=== PATIENT | female | born 1980 | race African-American/Black ===

== ENCOUNTER 2019-09-27 08:23 | Emergency (ER) | payer OTHER ==
[~2019-09-27] VITALS: Ht 167.6 cm; Wt 109.0 kg
--- NOTE | 2019-09-27 09:46 | RAD ---
AP chest. HISTORY: Chest pain AP view was taken of the chest. Lungs are clear. Heart is normal in size. There is no pleural effusion. IMPRESSION: 1. No acute chest disease. Electronically signed by: Les Hidalgo MD (09/27/2019 9:43 AM) [id number]
--- NOTE | 2019-09-27 11:12 | EKG ---
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
[2019-09-27 11:13] LABS: BASO # 0.1 x10^3/uL (0.0-0.2); BASO % 1 % (0-3); EOS # 0.5 x10^3/uL (0.0-0.7); EOS % 9 % (0-3); HEMATOCRIT 37.3 % (36.0-47.0); HEMOGLOBIN 12.3 g/dL (12.0-15.5); LYMPH % 34 % (24-48); MEAN CORPUSCULAR HEMOGLOBIN 28 pg (25-35); MEAN CORPUSCULAR HGB CONC 33 g/dL (31-37); MEAN CORPUSCULAR VOLUME 84 fL (79-100); MONO # 0.5 x10^3/uL (0.0-1.1); MONO % 9 % (0-9); NEUT # 2.8 x10^3/uL (1.8-7.7); NEUT % 48 % (31-73); PLATELET COUNT 154 x10^3/uL (140-400); RED BLOOD COUNT 4.42 x10^6/uL (3.50-5.40); RED CELL DISTRIBUTION WIDTH 14.1 % (11.5-14.5)
[2019-09-27 11:29] LABS: CALCIUM 7.9 mg/dL (8.5-10.1); GFR 75.5
[2019-09-27] MEDS ORDERED: KETOROLAC 30 MG/ML VIAL. IVP ONE (11:30)
[2019-09-27 11:35] LABS: ALBUMIN 2.4 g/dL (3.4-5.0); ALBUMIN/GLOBULIN RATIO 0.4 (1.0-1.7); TOTAL BILIRUBIN 0.1 mg/dL (0.2-1.0); TOTAL PROTEIN 7.8 g/dL (6.4-8.2)
[2019-09-27] MEDS ORDERED: IOHEXOL 350 MG/ML 100 ML VIAL. IV ONE (12:00)
[2019-09-27] MEDS ORDERED: CONTRAST GIVEN. MC PRN (12:00)
[2019-09-27 12:30] VITALS: BP 149/102
--- NOTE | 2019-09-27 12:40 | PHYS DOC ---
Past Medical History Past Medical History: Hypertension, Other Additional Past Medical Histor: AUTOIMMUNE HEPATITIS Past Surgical History: Smoking Status: Never Smoker Alcohol Use: None General Adult EDM: Chief Complaint: CHEST PAIN HPI: HPI: Patient is a 38 year old female who presents with substernal and left-sided chest pain. Patient states that it radiates into her back and feels like a deep chest pain. She has a mild cough and shortness of breath with this. She has never had anything like this previously. She states that it has been constant for the last week. She denies any fevers, URI symptoms, wheezing, abdominal pain, nausea, vomiting. Her mom recently got diagnosed with breast cancer and she is concerned that it could be because she has breast cancer. Review of Systems: Review of Systems: General: Denies fever, chills, sweats, fatigue Eyes: Denies drainage, blurred vision HENT: Denies rhinorrhea, sore throat Respiratory: Denies cough, shortness of breath, wheezing Cardiac: Denies edema, palpitations.reports chest pain GI: Denies abdominal pain, N/V MSK: Denies back pain, neck pain Skin: Denies rash, jaundice Neuro: Denies headache, dizziness Psychiatric: Denies SI/HI Heart Score: Risk Factors: Risk Factors: DM, Current or recent (<one month) smoker, HTN, HLP, family history of CAD, obesity. Risk Scores: Score 0 - 3: 2.5% MACE over next 6 weeks - Discharge Home Score 4 - 6: 20.3% MACE over next 6 weeks - Admit for Clinical Observation Score 7 - 10: 72.7% MACE over next 6 weeks - Early Invasive Strategies Current Medications: Current Medications Medications (Trade) Dose Ordered Sig/Perla Start Time Stop Time Status Last Admin Dose Admin Info (CONTRAST GIVEN -- Rx MONITORING) 1 each PRN DAILY PRN 09/27/19 12:00 09/29/19 11:59 Iohexol (Omnipaque 350 Mg/ml) 100 ml 1X ONCE 09/27/19 12:00 09/27/19 12:01 DC Ketorolac Tromethamine (Toradol 30mg Vial) 30 mg 1X ONCE 09/27/19 11:30 09/27/19 11:31 DC 09/27/19 11:27 30 MG Allergies: Allergies: Allergies Coded Allergies Type Severity Reaction Last Updated Verified acetaminophen Allergy Unknown 09/27/19 Yes doxycycline Allergy Unknown 09/27/19 Yes Physical Exam: PE: Constitutional: Well developed, well nourished, Cooperative, NAD, non-toxic appearing HEENT: Normocephalic, atraumatic, oropharynx moist, EOMI, PERRL, no drainage from eyes, normal conjunctiva Neck: Supple, normal range of motion, no stridor Cardiovascular: RRR, 2+ radial pulses bilaterally, no edema Respiratory: CTA bilaterally, no respiratory distress, no wheezing/crackles Abdomen: Soft, nontender, nondistended, no masses Skin: Warm, dry, intact Extremities: No obvious deformities Neurologic: Alert and Oriented x3, motor and sensory function grossly normal, no focal deficits Psychologic: Normal affect, normal judgment, normal mood. No SI/HI Current Patient Data: Labs: Laboratory Tests Test 09/27/19 11:05 White Blood Count 6.0 x10^3/uL (4.0-11.0) Red Blood Count 4.42 x10^6/uL (3.50-5.40) Hemoglobin 12.3 g/dL (12.0-15.5) Hematocrit 37.3 % (36.0-47.0) Mean Corpuscular Volume 84 fL (79-100) Mean Corpuscular Hemoglobin 28 pg (25-35) Mean Corpuscular Hemoglobin Concent 33 g/dL (31-37) Red Cell Distribution Width 14.1 % (11.5-14.5) Platelet Count 154 x10^3/uL (140-400) Neutrophils (%) (Auto) 48 % (31-73) Lymphocytes (%) (Auto) 34 % (24-48) Monocytes (%) (Auto) 9 % (0-9) Eosinophils (%) (Auto) 9 % (0-3) H Basophils (%) (Auto) 1 % (0-3) Neutrophils # (Auto) 2.8 x10^3/uL (1.8-7.7) Lymphocytes # (Auto) 2.0 x10^3/uL (1.0-4.8) Monocytes # (Auto) 0.5 x10^3/uL (0.0-1.1) Eosinophils # (Auto) 0.5 x10^3/uL (0.0-0.7) Basophils # (Auto) 0.1 x10^3/uL (0.0-0.2) D-Dimer (Edwina) 0.69 ug/mlFEU (0.00-0.50) H Sodium Level 134 mmol/L (136-145) L Potassium Level 4.0 mmol/L (3.5-5.1) Chloride Level 102 mmol/L (98-107) Carbon Dioxide Level 28 mmol/L (21-32) Anion Gap 4 (6-14) L Blood Urea Nitrogen 12 mg/dL (7-20) Creatinine 1.0 mg/dL (0.6-1.0) Estimated GFR (Cockcroft-Gault) 75.5 BUN/Creatinine Ratio 12 (6-20) Glucose Level 203 mg/dL (70-99) H Calcium Level 7.9 mg/dL (8.5-10.1) L Total Bilirubin 0.1 mg/dL (0.2-1.0) L Aspartate Amino Transferase (AST) 17 U/L (15-37) Alanine Aminotransferase (ALT) 13 U/L (14-59) L Alkaline Phosphatase 86 U/L (46-116) Lactate Dehydrogenase 153 U/L (81-234) C-Reactive Protein, Quantitative 10.0 mg/L (0-3.3) H Total Protein 7.8 g/dL (6.4-8.2) Albumin 2.4 g/dL (3.4-5.0) L Albumin/Globulin Ratio 0.4 (1.0-1.7) L Laboratory Tests 09/27/19 11:05 Laboratory Tests 09/27/19 11:05 Vital Signs: Vital Signs Date Time Temp Pulse Resp B/P (MAP) Pulse Ox O2 Delivery O2 Flow Rate FiO2 09/27/19 08:45 98.1 85 18 179/109 (132) 100 Room Air 98.1 EKG: EKG: [] Radiology/Procedures: Radiology/Procedures: [] Course & Med Decision Making: Course & Med Decision Making Pertinent Labs and Imaging studies reviewed. (See chart for details) Patient is a 38-year-old female who presents to the emergency room complaining of chest pain. Patient's pain is very atypical for cardiac chest pain. EKG is normal at this time. Pain has been constant for a week. Chest x-ray and labs were ordered. Work-up is unremarkable. D-dimer was done due to the pleuritic nature and was elevated. CT Cristina of the chest was ordered. Patient is requesting to leave. Patient will sign out AMA. I have discussed the risks and benefits of leaving prior to finishing her work-up including but not limited to . Patient states understanding and will sign out AGAINST MEDICAL ADVICE. Dragon Disclaimer: Dragon Disclaimer: This electronic medical record was generated, in whole or in part, using a voice recognition dictation system. Departure Departure Impression: Primary Impression: Chest pain Disposition: 07 AGAINST MEDICAL ADVICE Condition: STABLE Referrals: UNKNOWN PCP NAME (PCP) KEDAR LIM MD September 27, 2019 12:40
== END 2019-09-27 12:38 | disposition left against medical advice (07) ==
LOC: ER 08:23
DX: R07.2 Precordial pain (principal); R05 Cough; R06.02 Shortness of breath; I10 Essential (primary) hypertension; Z88.1 Allergy status to other antibiotic agents; Z88.6 Allergy status to analgesic agent
CPT/HCPCS: 36415; 71045; 80053; 83615; 85025; 85379; 86140; 93005; 96374; 99285; J1885

== ENCOUNTER 2019-10-04 09:51 | Emergency (ER) | payer OTHER ==
[~2019-10-04] VITALS: Ht 167.6 cm; Wt 100.0 kg
[2019-10-04 09:54] VITALS: BP 190/101
--- NOTE | 2019-10-04 10:49 | RAD ---
Study: CR KNEE LEFT 3V Indication: Left knee pain. No known injury. Comparison: None. Findings: No acute fracture. No traumatic malalignment. Mild medial femorotibial compartment joint space narrowing and medial joint line osteophytes. On the lateral view, subchondral trochlear defect measuring up to 1 cm craniocaudal. Osseous mineralization is within normal limits. Small knee joint effusion. Impression: 1. No acute osseous abnormality. 2. Age accelerated arthrosis at the medial femorotibial and patellofemoral compartments. On the lateral view, a 1 cm defect at the trochlea could represent an osteochondral lesion. Nonemergent/outpatient MRI would allow for better characterization as deemed necessary. 3. Small knee joint effusion. Electronically signed by: DEBO URRUTIA MD (10/04/2019 10:46 AM) [id number]
[2019-10-04] MEDS ORDERED: KETOROLAC 60 MG/2 ML VIAL. IM ONE (11:15)
[2019-10-04] MEDS ORDERED: TRAM50TA PO (11:33)
--- NOTE | 2019-10-04 11:34 | PHYS DOC ---
Past Medical History Past Medical History: Hypertension, Other Additional Past Medical Histor: AUTOIMMUNE HEPATITIS Past Surgical History: Smoking Status: Never Smoker Alcohol Use: None General Adult EDM: Chief Complaint: KNEE SWELLING HPI: HPI: Patient is a 38 year old female who presented to ER today for evaluation of left knee pain that been going on for 1 month. Patient said the pain become more severe last 3 days because she has been walking more. Patient denies any injury, denies any swelling, no chest pain, no trouble breathing. Patient co mplained of pain whenever she walks OR PUTTING any weight on it. Review of Systems: Review of Systems: Constitutional: Denies fever or chills. [] Eyes: Denies change in visual acuity. [] HENT: Denies nasal congestion or sore throat. [] Respiratory: Denies cough or shortness of breath. [] Cardiovascular: Denies chest pain or edema. [] GI: Denies abdominal pain, nausea, vomiting, bloody stools or diarrhea. [] : Denies dysuria. [] Musculoskeletal: Denies back pain, positive for left knee pain Integument: Denies rash. [] Neurologic: Denies headache, focal weakness or sensory changes. [] Endocrine: Denies polyuria or polydipsia. [] Lymphatic: Denies swollen glands. [] Psychiatric: Denies depression or anxiety. [] Heart Score: Risk Factors: Risk Factors: DM, Current or recent (<one month) smoker, HTN, HLP, family history of CAD, obesity. Risk Scores: Score 0 - 3: 2.5% MACE over next 6 weeks - Discharge Home Score 4 - 6: 20.3% MACE over next 6 weeks - Admit for Clinical Observation Score 7 - 10: 72.7% MACE over next 6 weeks - Early Invasive Strategies Current Medications: Current Medications Medications (Trade) Dose Ordered Sig/[facility] Start Time Stop Time Status Last Admin Dose Admin Ketorolac Tromethamine (Toradol Im) 60 mg 1X ONCE 10/04/19 11:15 10/04/19 11:16 DC 10/04/19 11:19 60 MG Allergies: Allergies: Allergies Coded Allergies Type Severity Reaction Last Updated Verified acetaminophen Allergy Unknown 09/27/19 Yes doxycycline Allergy Unknown 09/27/19 Yes Physical Exam: PE: Constitutional: Well developed, well nourished, no acute distress, non-toxic appearance. [] HENT: Normocephalic, atraumatic, bilateral external ears normal, oropharynx moist, no oral exudates, nose normal. [] Eyes: PERRLA, EOMI, conjunctiva normal, no discharge. [] Neck: Normal range of motion, no tenderness, supple, no stridor. [] Cardiovascular:Heart rate regular rhythm, no murmur [] Lungs & Thorax: Bilateral breath sounds clear to auscultation [] Abdomen: Bowel sounds normal, soft, no tenderness, no masses, no pulsatile masses. [] Skin: Warm, dry, no erythema, no rash. [] Back: No tenderness, no CVA tenderness. [] Extremities: no cyanosis, no clubbing, ROM intact, no edema. Left knee is tender to palpation, no swelling, patient has an elastic knee brace on. No calf swelling. Neurologic: Alert and oriented X 3, normal motor function, normal sensory function, no focal deficits noted. [] Psychologic: Affect normal, judgement normal, mood normal. [] Current Patient Data: Vital Signs: Vital Signs Date Time Temp Pulse Resp B/P (MAP) Pulse Ox O2 Delivery O2 Flow Rate FiO2 10/04/19 09:54 99.2 112 20 190/101 (130) 98 Room Air 99.2 EKG: EKG: [] Radiology/Procedures: Radiology/Procedures: [][facility] [address] [place] [address] IMAGING REPORT Signed PATIENT: ARTURO ARANGO ACCOUNT: [id number] : 1980 LOCATION: ER AGE: 38 SEX: F EXAM STATUS: REG ER ORD. PHYSICIAN: BRYNN RNAKIN DO REASON: LEFT KNEE PAIN, NO INJURY PROCEDURE: KNEE LEFT 3V Study: CR KNEE LEFT 3V Indication: Left knee pain. No known injury. Comparison: None. Findings: No acute fracture. No traumatic malalignment. Mild medial femorotibial compartment joint space narrowing and medial joint line osteophytes. On the lateral view, subchondral trochlear defect measuring up to 1 cm craniocaudal. Osseous mineralization is within normal limits. Small knee joint effusion. Impression: 1. No acute osseous abnormality. 2. Age accelerated arthrosis at the medial femorotibial and patellofemoral compartments. On the lateral view, a 1 cm defect at the trochlea could represent an osteochondral lesion. Nonemergent/outpatient MRI would allow for better characterization as deemed necessary. 3. Small knee joint effusion. Electronically signed by: DEBO URRUTIA MD (10/04/2019 10:46 AM) [id number] DICTATED and SIGNED BY: DEBO URRUTIA MD DATE: 10/04/19 1046 Course & Med Decision Making: Course & Med Decision Making Pertinent Labs and Imaging studies reviewed. (See chart for details) Patient is a 38-year-old female with knee pain that been going on for 1 month. X-rays show some arthritic change, she will need to follow-up with her family doctor for outpatient MRI of her left knee. Patient is amenable to plan of care. Dragon Disclaimer: Dragon Disclaimer: This electronic medical record was generated, in whole or in part, using a voice recognition dictation system. Departure Departure Impression: Primary Impression: Degenerative joint disease of knee, left Disposition: 01 HOME, SELF-CARE Condition: STABLE Referrals: UNKNOWN PCP NAME (PCP) follow up with your family doctor for outpatient MRI of your left knee. BRENNAN ULLOA II, MD follow up with this orthopedic surgeon for further evaluation and treatment of your left knee. Patient Instructions: Arthritis, Degenerative-Brief, Knee Pain Scripts Tramadol Hcl (TRAMADOL HCL) 50 Mg Tablet 50 MG PO Q6HRS PRN for PAIN, #15 TAB Prov: BRYNN RANKIN DO 10/04/19 BRYNN RANKIN DO Oct 04, 2019 11:34
== END 2019-10-04 11:50 | disposition home or self-care (01) ==
LOC: ER 09:51
DX: M17.12 Unilateral primary osteoarthritis, left knee (principal); I10 Essential (primary) hypertension; Z88.1 Allergy status to other antibiotic agents; Z88.6 Allergy status to analgesic agent
CPT/HCPCS: 73562; 96372; 99283; J1885

== ENCOUNTER → 2019-10-19 | Outpatient (CLI) | payer OTHER ==
[2019-10-04 09:54] VITALS: BP 190/101
[~2019-10-19] MED LIST: GADOTERATE 7.5 MMOL/15ML VIAL. IVP ONE; TRAM50TA PO
--- NOTE | 2019-10-19 14:46 | RAD ---
MR of the left knee HISTORY: Generalized knee pain. Cartilage defect. Correlation study: Radiographs of October 04, 2019. TECHNIQUE: Routine multiplanar sequences are obtained. FINDINGS: No evidence of medial meniscal tear. No evidence of lateral meniscal tear. Anterior and posterior cruciate ligaments are intact. Medial collateral ligament intact. Iliotibial band unremarkable. Fibular collateral ligament, biceps femoris tendon and popliteus tendon are intact. The extensor mechanism is intact. Mild chondromalacia of the medial patella. Small trochlear osteophytes without articular cartilage defect. No evidence of trochanteric subchondral or osteochondral lesion by MRI. Smooth thinning of the medial compartment articular cartilage with marginal osteophytes. No evidence of acute fracture. No aggressive bone destruction. Trace Batres's cyst. Trace joint effusion. IMPRESSION: 1. No evidence of subchondral or osteochondral lesion at the femoral trochlea. The radiographic lesion may just be due to superimposed trochlear osteophyte or retraction. 2. Degenerative changes at the patella and medial joint compartment. Electronically signed by: Anibal Ko MD (10/19/2019 2:43 PM) [id number]
== END | disposition home or self-care (01) ==
LOC: MRI 11:41
PROVIDERS: ATTEND Orthopaedic Surgery Sports Medicine
DX: M17.12 Unilateral primary osteoarthritis, left knee (principal); M23.92 Unspecified internal derangement of left knee; M22.42 Chondromalacia patellae, left knee
CPT/HCPCS: 73721

== ENCOUNTER 2019-11-01 17:40 | Emergency (ER) | payer OTHER ==
[~2019-11-01] VITALS: Ht 162.6 cm; Wt 122.2 kg
[~2019-11-01 17:40] MED LIST changes: -GADOTERATE 7.5 MMOL/15ML VIAL. IVP ONE
[2019-11-01 18:10] VITALS: BP 145/102
[2019-11-01] MEDS ORDERED: fentaNYL PF VIAL 100 MCG/2 ML VIAL IM ONE (20:15)
[2019-11-01] MEDS ORDERED: HYDROCODONE-IB1 EAC3 PO (21:03)
--- NOTE | 2019-11-01 21:07 | PHYS DOC ---
Past Medical History Past Medical History: Diabetes-Type II, Hypertension, Other Additional Past Medical Histor: AUTOIMMUNE HEPATITIS Past Surgical History: Smoking Status: Light Tobacco Smoker Alcohol Use: None General Adult EDM: Chief Complaint: KNEE SWELLING HPI: HPI: Patient is a 38 year old female who presents with pain to the left knee for the past 1-1/2 months. Patient states she seen her orthopedic Dr. Camacho 2-1/2 weeks ago and had a cortisone injection to her left knee without relief. Patient states that Dr. Camacho plans on doing further surgery on 01 December. Patient states when she called Dr. Camacho's office to notify him of her knee pain she was directed to come straight to the emergency department for pain control. Patient states that she has had several x-rays and an MRI of her left knee and reports cartilaginous damage that require surgery. Patient states she did not do anything to aggravate the pain and cannot get pain control with prescribed tramadol at home. Patient states that she does not feel like she needs another x-ray as she did not injure her knee, nor have any recent trauma to her knee. Patient requests pain medication to help her get over this pain until she is able to have surgery done. Patient denies fever chills, headaches, neurological deficits, shortness of breath, chest pain, other musculoskeletal pain, swelling, urinary problems, nausea vomiting or diarrhea. Patient denies any food or fluid changes in her diet. Patient denies any recent anxiety or stressful life events. Patient states no one else in her home has the same symptoms as she. Patient does report although she is not allergic to Tylenol, she is unable to take Tylenol related to chronic liver disease. Review of Systems: Review of Systems: Constitutional: Denies fever or chills. [] Eyes: Denies change in visual acuity. [] HENT: Denies nasal congestion or sore throat. [] Respiratory: Denies cough or shortness of breath. [] Cardiovascular: Denies chest pain or edema. [] GI: Denies abdominal pain, nausea, vomiting, bloody stools or diarrhea. [] : Denies dysuria. [] Musculoskeletal: Denies back pain. Complains of left knee pain, denies other musculoskeletal pain or joint pains. [] Integument: Denies rash. [] Neurologic: Denies headache, focal weakness or sensory changes. [] Endocrine: Denies polyuria or polydipsia. [] Lymphatic: Denies swollen glands. [] Psychiatric: Denies depression or anxiety. [] Heart Score: Risk Factors: Risk Factors: DM, Current or recent (<one month) smoker, HTN, HLP, family history of CAD, obesity. Risk Scores: Score 0 - 3: 2.5% MACE over next 6 weeks - Discharge Home Score 4 - 6: 20.3% MACE over next 6 weeks - Admit for Clinical Observation Score 7 - 10: 72.7% MACE over next 6 weeks - Early Invasive Strategies Family History: Family History: No significant family history related to this ER visit today. Current Medications: Current Medications Medications (Trade) Dose Ordered Sig/Perla Start Time Stop Time Status Last Admin Dose Admin Fentanyl Citrate (Fentanyl 2ml Vial) 75 mcg 1X ONCE 11/01/19 20:15 11/01/19 20:16 DC 11/01/19 20:35 75 MCG Allergies: Allergies: Allergies Coded Allergies Type Severity Reaction Last Updated Verified acetaminophen Allergy Intermediate 10/19/19 Yes doxycycline Allergy Intermediate 10/19/19 Yes Physical Exam: PE: Constitutional: Well developed, well nourished, no acute distress, non-toxic appearance. [] HENT: Normocephalic, atraumatic, bilateral external ears normal, oropharynx moist, no oral exudates, nose normal. [] Eyes: PERRLA, EOMI, conjunctiva normal, no discharge. [] Neck: Normal range of motion, no tenderness, supple, no stridor. [] Cardiovascular:Heart rate regular rhythm, no murmur [] Lungs & Thorax: Bilateral breath sounds clear to auscultation [] Abdomen: Bowel sounds normal, soft, no tenderness, no masses, no pulsatile masses. [] Skin: Warm, dry, no erythema, no rash. [] Back: No tenderness, no CVA tenderness. [] Extremities: Tenderness to the left knee, no tenderness to her other extremities, no cyanosis, no clubbing, ROM intact, no edema. No swelling noted. Neurologic: Alert and oriented X 3, normal motor function, normal sensory function, no focal deficits noted. [] Psychologic: Affect normal, judgement normal, mood normal. [] Current Patient Data: Vital Signs: Vital Signs Date Time Temp Pulse Resp B/P (MAP) Pulse Ox O2 Delivery O2 Flow Rate FiO2 11/01/19 18:10 98.8 112 20 145/102 (116) 98 Room Air 98.8 EKG: EKG: [] Radiology/Procedures: Radiology/Procedures: [] Course & Med Decision Making: Course & Med Decision Making Pertinent Labs and Imaging studies reviewed. (See chart for details) 38-year-old female patient arrives to the emergency department complaint of left knee pain and swelling for the past 1-1/2 months. Patient states that she has had several x-rays and an MRI done under the care of her orthopedic Dr. Camacho. Patient states she has extensive cartilaginous damage to her left knee. Patient states approximately 2-1/[address] Camacho performed a cortisone injection to her knee without relief. Patient states that on [address] Camacho plans on doing surgery to her left knee, but is unclear as to the exact name of the surgery he wishes to perform. Patient states that she has tramadol at home that is not relieving her pain and wishes to get something to help her with her pain until she can be seen again by Dr. Camacho. Patient states she did call Dr. Camacho's office today and was directed to come directly to the ER for pain control. Upon examination of patient's left knee patient does have a custom made knee compression device on this device was removed and knee was examined. There was no swelling noted. But patient complained of pain upon palpation and active range of motion as well as passive range of motion to the left lower ext remity knee joint. Examination of patient's left knee was not concerning of infectious process or acute injury. X-ray imaging not recommended at this time. Discussed with patient that since she denies any acute injury or trauma to that knee an additional x-ray imaging is not recommended and the patient agrees with this. ER plan is to give IM fentanyl to patient and then discharge home with a prescription for Vicoprofen. Patient encouraged to follow-up with pain management. Patient states she has seen pain management in the past and it helps her. IM fentanyl was given to patient by ED staff nurse patient's pain went from a 10/10 pain to a 1/10 pain. ED plan to discharge patient home with prescription of Vicoprofen and instructions to follow-up with her orthopedic Dr. Camacho and pain management if pain persists. Patient is agreeable to this plan and has no further questions or concerns. Dragon Disclaimer: Dragon Disclaimer: This electronic medical record was generated, in whole or in part, using a voice recognition dictation system. Departure Departure Impression: Primary Impression: Knee pain, left Qualified Codes: M25.562 - Pain in left knee Disposition: HOME, SELF-CARE Referrals: GENESIS LYMAN MD (PCP) Patient Instructions: Knee Pain Additional Instructions: TAKE MEDICATIONS DIRECTED, SEE YOUR ORTHOPEDIC DOCTOR SOON, FOLLOW UP WITH THE PAIN CLINIC IF PAIN PERSISTS Scripts Hydrocodone/Ibuprofen (HYDROCODONE-IBUPROFEN 7.5-200) 1 Each Tablet 1 TAB PO PRN Q6HRS PRN for PAIN, #10 TAB 0 Refills Prov: AAMIR WILLAMS APRN 11/01/19 Justicifation of Admission Dx: Justifications for Admission: Justification of Admission Dx: N/A AAMIR WILLAMS APRN Nov 01, 2019 21:07
== END 2019-11-01 21:15 | disposition home or self-care (01) ==
LOC: ER 17:40
DX: M25.562 Pain in left knee (principal); R60.0 Localized edema; E11.9 Type 2 diabetes mellitus without complications; I10 Essential (primary) hypertension; Z98.890 Other specified postprocedural states; Z87.891 Personal history of nicotine dependence; Z88.1 Allergy status to other antibiotic agents; Z88.6 Allergy status to analgesic agent
CPT/HCPCS: 96372; 99283; J3010

== ENCOUNTER 2020-03-12 13:36 | Emergency (ER) | payer OTHER ==
[~2020-03-12] VITALS: Ht 167.6 cm; Wt 109.0 kg
[~2020-03-12 13:36] MED LIST changes: +HYDROCODONE-IB1 EAC3 PO
[2020-03-12] MEDS ORDERED: ASPIRIN 325 MG TABLET PO ONE (14:00)
[2020-03-12 14:07] LABS: BILIRUBIN,URINE NEGATIVE (NEG); CLARITY,URINE CLEAR; COLOR,URINE YELLOW; NITRITE,URINE NEGATIVE (NEG); PROTEIN,URINE NEGATIVE (NEG-TRACE)
[2020-03-12 14:14] LABS: AMPHETAMINE/METHAMPHETAMINE NEG (NEG); BARBITURATES NEG (NEG); BENZODIAZEPINES NEG (NEG); CANNABINOIDS POS (NEG); COCAINE NEG (NEG); METHADONE NEG (NEG); OPIATES NEG (NEG); PHENCYCLIDINE NEG (NEG)
[2020-03-12 14:17] LABS: BACTERIA,URINE MOD /HPF (0-FEW)
--- NOTE | 2020-03-12 14:35 | RAD ---
EXAMINATION: PORTABLE CHEST 1V CLINICAL HISTORY: Chest pain EXAM DATE/TIME: 03/12/2020 1:47 PM COMPARISON: 07/28/2019 FINDINGS: Lines, Tubes, and Devices: None. Cardiomediastinal Silhouette: Within normal limits. Lungs and Pleura: No evidence of focal airspace consolidation or pleural effusion. Pulmonary vasculature unremarkable. Bones and Soft Tissues: No acute osseous abnormality. IMPRESSION: No evidence of acute cardiopulmonary abnormality or significant interval change. Electronically signed by: Wilner Melo DO (03/12/2020 2:32 PM) [id number]
[2020-03-12] MEDS: NITROGLYCERIN SUBLINGUAL 0.4 MG BOTTLE OF 25. SL PRN ×3 (14:48→21:04)
[2020-03-12] MEDS: MORPHINE SULFATE 2 MG/ML VIAL. IV/SQ PRN ×2 (16:46→19:28)
[2020-03-12 16:47] LABS: BASO # 0.1 x10^3/uL (0.0-0.2); BASO % 1 % (0-3); EOS # 0.6 x10^3/uL (0.0-0.7); EOS % 9 % (0-3); HEMATOCRIT 38.4 % (36.0-47.0); HEMOGLOBIN 13.2 g/dL (12.0-15.5); LYMPH # 2.4 x10^3/uL (1.0-4.8); LYMPH % 34 % (24-48); MEAN CORPUSCULAR HEMOGLOBIN 29 pg (25-35); MEAN CORPUSCULAR HGB CONC 34 g/dL (31-37); MEAN CORPUSCULAR VOLUME 85 fL (79-100); MONO # 0.4 x10^3/uL (0.0-1.1); MONO % 5 % (0-9); NEUT # 3.6 x10^3/uL (1.8-7.7); NEUT % 51 % (31-73); PLATELET COUNT 209 x10^3/uL (140-400); RED BLOOD COUNT 4.54 x10^6/uL (3.50-5.40); RED CELL DISTRIBUTION WIDTH 13.3 % (11.5-14.5); WHITE BLOOD COUNT 6.9 x10^3/uL (4.0-11.0)
[2020-03-12 17:02] LABS: CALCIUM 8.7 mg/dL (8.5-10.1); CREATININE 0.9 mg/dL (0.6-1.0); GFR 84.8; POTASSIUM 3.9 mmol/L (3.5-5.1)
[2020-03-12 17:15] LABS: ALBUMIN 2.5 g/dL (3.4-5.0); ALBUMIN/GLOBULIN RATIO 0.4 (1.0-1.7); MAGNESIUM 1.6 mg/dL (1.8-2.4); TOTAL BILIRUBIN 0.3 mg/dL (0.2-1.0); TOTAL PROTEIN 8.4 g/dL (6.4-8.2)
[2020-03-12 17:17] LABS: D-DIMER 1.33 ug/mlFEU (0.00-0.50)
[2020-03-12 17:29] LABS: PLT ESTIMATE ADEQUATE (ADEQUATE)
[2020-03-12] MEDS ORDERED: IOHEXOL 350 MG/ML 100 ML VIAL. IV ONE (18:45)
[2020-03-12] MEDS ORDERED: CONTRAST GIVEN. MC PRN (18:45)
--- NOTE | 2020-03-12 20:01 | RAD ---
Study: CT CHEST WITH CONTRAST - PULMONARY ANGIOGRAM History: Chest pain Comparison: Chest radiograph of 01/22/2020 Technique: Helical CT of the chest performed after the administration of 100 mL Omnipaque 350 intravenous contrast and timed for angiographic evaluation of the pulmonary arteries per PE protocol. Coronal and sagittal 3D MIP reformations were obtained. One or more of the following individualized dose reduction techniques were utilized for this examination: 1. Automated exposure control 2. Adjustment of the mA and/or kV according to patient size 3. Use of iterative reconstruction technique. Findings: Pulmonary Arteries: Contrast bolus is adequate. There is no acute pulmonary embolism. Main pulmonary artery is normal in caliber. Heart/Systemic Vasculature: The heart is normal in size. No pericardial effusion. Thoracic aorta is normal. Mediastinum: No mediastinal or hilar lymphadenopathy. There is a small calcified subcarinal lymph node. Lungs: Mild dependent atelectasis. The lungs are otherwise clear. No pleural effusion. Neck/Axilla/Body Wall: Visualized portion of the thyroid gland is normal. No axillary lymphadenopathy. Upper Abdomen: There is bilateral nephrolithiasis with 2 large calculi on the left measuring up to 1.2 cm in diameter. Calcified splenic granulomas noted. Bones: No acute osseous abnormality. IMPRESSION: 1. No acute pulmonary embolism or other acute cardiopulmonary abnormality. 2. Bilateral nephrolithiasis with large left renal calculi. Electronically signed by: Maryann Cavazos MD (03/12/2020 7:58 PM) [id number]
--- NOTE | 2020-03-12 20:50 | PHYS DOC ---
Past Medical History Past Medical History: Hypertension, Other Additional Past Medical Histor: Hepatitis (JERED MOSCOSO APRN) Past Surgical History: No Surgical History (JERED MOSCOSO APRN) Smoking Status: Current Every Day Smoker Additional Information: 0.25 ppd Alcohol Use: None (JERED MOSCOSO APRN) General Adult EDM: Chief Complaint: CHEST PAIN HPI: HPI: Patient is a 39 year old female patient with history of hypertension presenting to the ED today complaining of 8 out of 10 bilateral chest pain that began 3 days ago. Patient describes the pain as sharp and intermittent, denies anything specifically exacerbating or relieving the pain. Denies any other associated symptoms with the pain. She states she came to the ED today because the wanted her to be checked out. (JERED MOSCOSO APRN) Review of Systems: Review of Systems: Constitutional: Denies fever or chills. [] Eyes: Denies change in visual acuity. [] HENT: Denies nasal congestion or sore throat. [] Respiratory: Denies cough or shortness of breath. [] Cardiovascular: Reports chest pain GI: Denies abdominal pain, nausea, vomiting, bloody stools or diarrhea. [] : Denies dysuria. [] Musculoskeletal: Denies back pain or joint pain. [] Integument: Denies rash. [] Neurologic: Denies headache, focal weakness or sensory changes. [] Psychiatric: Denies depression or anxiety. [] (JERED MOSCOSO APRN) Heart Score: HEART Score for Chest Pain: HEART Score for Chest Pain Response (Comments) Value History Slighlty/Non-Suspicious 0 ECG Normal 0 Age < 45 0 Risk Factors 1 or 2 Risk Factors 1 Troponin < Normal Limit 0 Total 1 Risk Factors: Risk Factors: DM, Current or recent (<one month) smoker, HTN, HLP, family history of CAD, obesity. Risk Scores: Score 0 - 3: 2.5% MACE over next 6 weeks - Discharge Home Score 4 - 6: 20.3% MACE over next 6 weeks - Admit for Clinical Observation Score 7 - 10: 72.7% MACE over next 6 weeks - Early Invasive Strategies (JERED MOSCOSO APRN) Current Medications: Current Medications Medications (Trade) Dose Ordered Sig/Perla Start Time Stop Time Status Last Admin Dose Admin Aspirin (Sirisha Aspirin) 325 mg 1X ONCE 03/12/20 14:00 11/9/20 14:01 DC 03/12/20 14:46 325 MG Info (CONTRAST GIVEN -- Rx MONITORING) 1 each PRN DAILY PRN 03/12/20 18:45 03/14/20 18:44 Iohexol (Omnipaque 350 Mg/ml) 100 ml 1X ONCE 03/12/20 18:45 03/12/20 18:46 DC 03/12/20 19:00 100 ML Morphine Sulfate (Morphine Sulfate) 2 mg PRN Q15MIN PRN 03/12/20 14:00 03/13/20 13:59 03/12/20 19:28 2 MG Nitroglycerin (Nitrostat) 0.4 mg PRN Q5MIN PRN 03/12/20 14:00 03/13/20 13:59 03/12/20 15:09 0.4 MG (MUTUNGA,JERED KEYCASE ASSEMBLER) Allergies: Allergies: Allergies Coded Allergies Type Severity Reaction Last Updated Verified acetaminophen Allergy Intermediate 10/19/19 Yes doxycycline Allergy Intermediate 10/19/19 Yes (MUTUNGA,JERED KEYCASE ASSEMBLER) Physical Exam: PE: Constitutional: Well developed, well nourished, no acute distress, non-toxic appearance. [] HENT: Normocephalic, atraumatic, bilateral external ears normal, oropharynx moist, no oral exudates, nose normal. [] Eyes: PERRLA, EOMI, conjunctiva normal, no discharge. [] Neck: Normal range of motion, no tenderness, supple, no stridor. [] Cardiovascular:Heart rate regular rhythm, no murmur [] Lungs & Thorax: Bilateral breath sounds clear to auscultation [] Abdomen: Bowel sounds normal, soft, no tenderness, no masses, no pulsatile masses. [] Skin: Warm, dry, no erythema, no rash. [] Back: No tenderness, no CVA tenderness. [] Extremities: No tenderness, no cyanosis, no clubbing, ROM intact, no edema. [] Neurologic: Alert and oriented X 3, normal motor function, normal sensory function, no focal deficits noted. [] Psychologic: Affect normal, judgement normal, mood normal. [] (MUTUNGA,JERED KEYCASE ASSEMBLER) Current Patient Data: Labs: Laboratory Tests Test 03/12/20 13:40 03/12/20 13:44 03/12/20 16:40 03/12/20 19:20 Urine Collection Type Unknown Urine Color Yellow Urine Clarity Clear Urine pH 6.0 (<5.0-8.0) Urine Specific Chromo 1.015 (1.000-1.030) Urine Protein Negative mg/dL (NEG-TRACE) Urine Glucose (UA) Negative mg/dL (NEG) Urine Ketones (Stick) Negative mg/dL (NEG) Urine Blood Trace (NEG) Urine Nitrite Negative (NEG) Urine Bilirubin Negative (NEG) Urine Urobilinogen Dipstick 1.0 mg/dL (0.2 mg/dL) Urine Leukocyte Esterase Small (NEG) Urine RBC 1-2 /HPF (0-2) Urine WBC 5-10 /HPF (0-4) Urine Squamous Epithelial Cells Mod /LPF Urine Bacteria Mod /HPF (0-FEW) Urine Opiates Screen Neg (NEG) Urine Methadone Screen Neg (NEG) Urine Barbiturates Neg (NEG) Urine Phencyclidine Screen Neg (NEG) Urine Amphetamine/Methamphetamine Neg (NEG) Urine Benzodiazepines Screen Neg (NEG) Urine Cocaine Screen Neg (NEG) Urine Cannabinoids Screen Pos (NEG) Urine Ethyl Alcohol Neg (NEG) POC Urine HCG, Qualitative Hcg negative (Negative) White Blood Count 6.9 x10^3/uL (4.0-11.0) Red Blood Count 4.54 x10^6/uL (3.50-5.40) Hemoglobin 13.2 g/dL (12.0-15.5) Hematocrit 38.4 % (36.0-47.0) Mean Corpuscular Volume 85 fL (79-100) Mean Corpuscular Hemoglobin 29 pg (25-35) Mean Corpuscular Hemoglobin Concent 34 g/dL (31-37) Red Cell Distribution Width 13.3 % (11.5-14.5) Platelet Count 209 x10^3/uL (140-400) Neutrophils (%) (Auto) 51 % (31-73) Lymphocytes (%) (Auto) 34 % (24-48) Monocytes (%) (Auto) 5 % (0-9) Eosinophils (%) (Auto) 9 % (0-3) H Basophils (%) (Auto) 1 % (0-3) Neutrophils # (Auto) 3.6 x10^3/uL (1.8-7.7) Lymphocytes # (Auto) 2.4 x10^3/uL (1.0-4.8) Monocytes # (Auto) 0.4 x10^3/uL (0.0-1.1) Eosinophils # (Auto) 0.6 x10^3/uL (0.0-0.7) Basophils # (Auto) 0.1 x10^3/uL (0.0-0.2) Platelet Estimate Adequate (ADEQUATE) Large Platelets Present Prothrombin Time 13.0 SEC (11.7-14.0) Prothrombin Time INR 1.0 (0.8-1.1) D-Dimer (Edwina) 1.33 ug/mlFEU (0.00-0.50) H Sodium Level 135 mmol/L (136-145) L Potassium Level 3.9 mmol/L (3.5-5.1) Chloride Level 102 mmol/L (98-107) Carbon Dioxide Level 23 mmol/L (21-32) Anion Gap 10 (6-14) Blood Urea Nitrogen 9 mg/dL (7-20) Creatinine 0.9 mg/dL (0.6-1.0) Estimated GFR (Cockcroft-Gault) 84.8 BUN/Creatinine Ratio 10 (6-20) Glucose Level 165 mg/dL (70-99) H Calcium Level 8.7 mg/dL (8.5-10.1) Magnesium Level 1.6 mg/dL (1.8-2.4) L Total Bilirubin 0.3 mg/dL (0.2-1.0) Aspartate Amino Transferase (AST) 46 U/L (15-37) H Alanine Aminotransferase (ALT) 33 U/L (14-59) Alkaline Phosphatase 120 U/L (46-116) H Troponin I Quantitative < 0.017 ng/mL (0.000-0.055) < 0.017 ng/mL (0.000-0.055) LN-Wlo-V-Type Natriuretic Peptide 20 pg/mL (0-124) Total Protein 8.4 g/dL (6.4-8.2) H Albumin 2.5 g/dL (3.4-5.0) L Albumin/Globulin Ratio 0.4 (1.0-1.7) L Lipase 212 U/L (73-393) Thyroid Stimulating Hormone (TSH) 2.126 uIU/mL (0.358-3.74) Laboratory Tests 03/12/20 16:40 Laboratory Tests 03/12/20 16:40 Vital Signs: Vital Signs Date Time Temp Pulse Resp B/P (MAP) Pulse Ox O2 Delivery O2 Flow Rate FiO2 03/12/20 19:41 92 20 160/86 (110) 98 Room Air 03/12/20 13:55 97.8 97.8 (JERED MOSCOSO APRN) EKG: EK interpreted by Dr. Woods sinus tachycardia heart rate 118 no STEMI [] (JERED MOSCOSO APRN) Radiology/Procedures: Radiology/Procedures: []PROCEDURE: CT ANGIOGRAPHY CHEST Study: CT CHEST WITH CONTRAST - PULMONARY ANGIOGRAM History: Chest pain Comparison: Chest radiograph of 01/22/2020 Technique: Helical CT of the chest performed after the administration of 100 mL Omnipaque 350 intravenous contrast and timed for angiographic evaluation of the pulmonary arteries per PE protocol. Coronal and sagittal 3D MIP reformations were obtained. One or more of the following individualized dose reduction techniques were utilized for this examination: 1. Automated exposure control 2. Adjustment of the mA and/or kV according to patient size 3. Use of iterative reconstruction technique. Findings: Pulmonary Arteries: Contrast bolus is adequate. There is no acute pulmonary embolism. Main pulmonary artery is normal in caliber. Heart/Systemic Vasculature: The heart is normal in size. No pericardial effusion. Thoracic aorta is normal. Mediastinum: No mediastinal or hilar lymphadenopathy. There is a small calcified subcarinal lymph node. Lungs: Mild dependent atelectasis. The lungs are otherwise clear. No pleural effusion. Neck/Axilla/Body Wall: Visualized portion of the thyroid gland is normal. No axillary lymphadenopathy. Upper Abdomen: There is bilateral nephrolithiasis with 2 large calculi on the left measuring up to 1.2 cm in diameter. Calcified splenic granulomas noted. Bones: No acute osseous abnormality. IMPRESSION: 1. No acute pulmonary embolism or other acute cardiopulmonary abnormality. 2. Bilateral nephrolithiasis with large left renal calculi. Electronically signed by: Maryann Cavazos MD (03/12/2020 7:58 PM) [id number] DICTATED and SIGNED BY: MARYANN CAVAZOS MD DATE: 03/12/20 1958 PROCEDURE: PORTABLE CHEST 1V EXAMINATION: PORTABLE CHEST 1V CLINICAL HISTORY: Chest pain EXAM DATE/TIME: 03/12/2020 1:47 PM COMPARISON: 07/28/2019 FINDINGS: Lines, Tubes, and Devices: None. Cardiomediastinal Silhouette: Within normal limits. Lungs and Pleura: No evidence of focal airspace consolidation or pleural effusion. Pulmonary vasculature unremarkable. Bones and Soft Tissues: No acute osseous abnormality. IMPRESSION: No evidence of acute cardiopulmonary abnormality or significant interval change. Electronically signed by: Wilner Mcdermott DO (03/12/2020 2:32 PM) [facility]ERMOTT DICTATED and SIGNED BY: WILNER MCDERMOTT DO DATE: 03/12/20 1432 (JERED MOSCOSO APRN) Course & Med Decision Making: Course & Med Decision Making Pertinent Labs and Imaging studies reviewed. (See chart for details) This is a 39-year-old female patient presenting to the ED today complaining of chest pain that began 3 days ago. EKG is negative, chest x-ray is negative, troponin is normal, repeat troponin was also done which was normal. Urine analysis with small amount of leukocytes, 5-10 WBCs, urine also appears contaminated though this patient likely has a UTI. We will discharge her on Bactrim for 3 days. D-dimer 1.33, CTA chest is negative. Patient was discharged to home. Will follow up with her fast brim pouncer and PCP. Patient was tested for COVID-19, results will be called to her (JERED MOSCOSO APRN) Dragon Disclaimer: Dragon Disclaimer: This electronic medical record was generated, in whole or in part, using a voice recognition dictation system. (JERED MOSCOSO APRN) Departure Departure Impression: Primary Impression: Chest pain Qualified Codes: R07.9 - Chest pain, unspecified Additional Impressions: UTI (urinary tract infection) Qualified Codes: N39.0 - Urinary tract infection, site not specified COVID-19 Disposition: 01 DC HOME SELF CARE/HOMELESS Condition: STABLE Referrals: NO PCP (PCP) FRANCISCO JAVIER REYES MD follow up in one week Patient Instructions: Chest Pain (Nonspecific) Additional Instructions: You were evaluated in the emergency room for chest pain, your cardiac work-up is negative for any acute findings. Please follow-up with your primary care doctor as well as the fast brim pouncer provided. You were treated for UTI with Bactrim for 3 days. Ensure you completed. Come back to the ED at any point symptoms worsen. You were tested for COVID-19, we will call you in 3 days with results. Maintain good hand hygiene, quarantine yourself until you hear from us. Scripts Sulfamethoxazole/Trimethoprim (BACTRIM DS TABLET) 1 Each Tablet 1 TAB PO BID for 3 Days, #6 TAB 0 Refills Prov: JERED MOSCOSO APRN 03/12/20 Attending Signature Attending Signature I have reviewed the PA/MAIL PROCESSING ASSOCIATE's note and plan of care. I was available for consultation as needed during the patient's visit in the emergency department. I agree with the clinical impression, plan, and disposition. (AAMIR WOODS DO) JERED MOSCOSO APRN Mar 12, 2020 20:50 AAMIR WOODS DO Mar 13, 2020 06:34
[2020-03-12] MEDS ORDERED: SULF1TAB24 PO (20:57)
[2020-03-12 21:04] VITALS: BP 146/89
== END 2020-03-12 21:20 | disposition home or self-care (01) ==
LOC: ER 13:36
DX: U07.1 COVID-19 (principal); N39.0 Urinary tract infection, site not specified; R07.89 Other chest pain; I10 Essential (primary) hypertension; F17.200 Nicotine dependence, unspecified, uncomplicated; Z88.1 Allergy status to other antibiotic agents; Z88.8 Allergy status to other drugs, medicaments and biological substances
CPT/HCPCS: 36415; 71045; 71275; 80053; 80307; 81001; 81025; 83690; 83735; 83880; 84443; 84484; 85025; 85379; 85610; 96374; 96376; 99285; J2270; Q9967

== ENCOUNTER 2020-04-11 07:27 | Emergency (ER) | payer OTHER ==
[~2020-04-11] VITALS: Ht 167.6 cm; Wt 109.0 kg
[~2020-04-11 07:27] MED LIST changes: +SULF1TAB24 PO
--- NOTE | 2020-04-11 08:05 | PHYS DOC ---
Past Medical History Past Medical History: Diabetes-Type II, Hypertension, Kidney Stone, Other Additional Past Medical Histor: AUTOIMMUNE HEPATITIS Past Surgical History: Smoking Status: Current Every Day Smoker Alcohol Use: None General Adult EDM: Chief Complaint: FLANK PAIN HPI: HPI: Patient is a 39 year old female who presented to ER for evaluation of bilateral flank pain that radiated across her belly for 2 days. Patient feels nauseous but no vomiting. Her last menstrual period was 03/10/2020. Patient denies any fever. Patient denies any cough. Patient denies being exposed to anybody who tested positive for COVID-19. Patient has history of kidney stone. Review of Systems: Review of Systems: Constitutional: Denies fever or chills. [] Eyes: Denies change in visual acuity. [] HENT: Denies nasal congestion or sore throat. [] Respiratory: Denies cough or shortness of breath. [] Cardiovascular: Denies chest pain or edema. [] GI: positive for abdominal pain and nausea. : Denies dysuria. [] Musculoskeletal: Denies back pain or joint pain. [] Integument: Denies rash. [] Neurologic: Denies headache, focal weakness or sensory changes. [] Endocrine: Denies polyuria or polydipsia. [] Lymphatic: Denies swollen glands. [] Psychiatric: Denies depression or anxiety. [] Heart Score: Risk Factors: Risk Factors: DM, Current or recent (<one month) smoker, HTN, HLP, family history of CAD, obesity. Risk Scores: Score 0 - 3: 2.5% MACE over next 6 weeks - Discharge Home Score 4 - 6: 20.3% MACE over next 6 weeks - Admit for Clinical Observation Score 7 - 10: 72.7% MACE over next 6 weeks - Early Invasive Strategies Allergies: Allergies: Allergies Coded Allergies Type Severity Reaction Last Updated Verified acetaminophen Allergy Intermediate 04/11/20 Yes doxycycline Allergy Intermediate SWELLING 04/11/20 Yes Physical Exam: PE: Constitutional: Well developed, well nourished, no acute distress, non-toxic appearance. [] HENT: Normocephalic, atraumatic, bilateral external ears normal, oropharynx moist, no oral exudates, nose normal. [] Eyes: PERRLA, EOMI, conjunctiva normal, no discharge. [] Neck: Normal range of motion, no tenderness, supple, no stridor. [] Cardiovascular:Heart rate regular rhythm, no murmur [] Lungs & Thorax: Bilateral breath sounds clear to auscultation [] Abdomen: Bowel sounds normal, soft, Right UPPER QUADRANT tenderness , RIGHT CVA TENDERNESS TO PALPATION, no masses, no pulsatile masses. [] Skin: Warm, dry, no erythema, no rash. [] Back: No tenderness, no CVA tenderness. [] Extremities: No tenderness, no cyanosis, no clubbing, ROM intact, no edema. [] Neurologic: Alert and oriented X 3, normal motor function, normal sensory function, no focal deficits noted. [] Psychologic: Affect normal, judgement normal, mood normal. [] Current Patient Data: Labs: Laboratory Tests Test 04/11/20 07:47 POC Urine HCG, Qualitative Hcg negative (Negative) Vital Signs: Vital Signs Date Time Temp Pulse Resp B/P (MAP) Pulse Ox O2 Delivery O2 Flow Rate FiO2 04/11/20 07:40 97.9 97 20 175/79 (111) 100 Room Air 97.9 EKG: EKG: [] Radiology/Procedures: Radiology/Procedures: [facility] [address] [place] [address] IMAGING REPORT Signed PATIENT: ARTURO ARANGO ACCOUNT: [id number] : 1980 LOCATION: ER AGE: 39 SEX: F EXAM STATUS: REG ER ORD. PHYSICIAN: BRYNN RANIKN DO REASON: flank pain, history of kidney stone PROCEDURE: CT ABDOMEN PELVIS WO CONTRAST CT ABDOMEN PELVIS WO CONTRAST INDICATION: flank pain, history of kidney stone / Spl. Instructions: / History: EXAM: Noncontrast CT of the abdomen and pelvis. Coronal and sagittal reformatted images were performed. PQRS compliance statement: One or more of the following individualized dose reduction techniques were utilized for this examination: 1. Automated exposure control 2. Adjustment of the mA and/or kV according to patient size 3. Use of iterative reconstruction technique COMPARISON: None FINDINGS: No free air, free fluid, or fluid collection. Lower chest: The visualized lower lungs are aerated. No pleural or pericardial effusion. ABDOMEN: Liver: The noncontrast liver is homogeneous in attenuation. Gallbladder and biliary: Normal gallbladder without radiopaque stone. Normal caliber bile ducts. Spleen: Normal spleen. Pancreas: The noncontrast pancreas is homogeneous in attenuation without peripancreatic inflammatory changes. Adrenal glands: Normal adrenal glands. Kidneys and ureters: Right pelviectasis with a 1.5 x 1.0 x 1.8 cm stone at the ureteropelvic junction. Multiple additional bilateral renal calculi measuring up to 0.4 cm on the right and 2.2 cm on the left. GI tract: The stomach is decompressed and poorly evaluated. Normal caliber small bowel and colon. Normal appendix. Vascular structures: Normal caliber abdominal aorta. Lymph nodes: No lymphadenopathy in the abdomen or pelvis. PELVIS: Genitourinary system: Normal bladder. Uterus is present. Left ovarian 3.3 cm cyst SKELETAL STRUCTURES AND SOFT TISSUES: No fracture or destructive lesion in the visualized skeleton. IMPRESSION: 1. Mild right pelviectasis with a large 1.8 cm calculus at the ureteropelvic junction. 2. Additional nonobstructive bilateral renal calculi. Electronically signed by: Venu Batres MD (04/11/2020 8:54 AM) [id number] DICTATED and SIGNED BY: VENU BATRES MD DATE: 04/11/20 [id number] 0 Course & Med Decision Making: Course & Med Decision Making Pertinent Labs and Imaging studies reviewed. (See chart for details) Patient is a 39-year-old female who presented to ER for bilateral flank pain, CT scan showed large size kidney stones, no evidence of obstruction, patient pain is under control. She will be discharged home, she will need to follow-up with urology for outpatient evaluation and treatment. Reema Disclaimer: Reema Disclaimer: This electronic medical record was generated, in whole or in part, using a voice recognition dictation system. Departure Departure Impression: Primary Impression: Kidney stones Disposition: 01 DC HOME SELF CARE/HOMELESS Condition: IMPROVED Referrals: NO PCP (PCP) PLEASE CALL [facility] UROLOGY DEPARTMENT FOR FOLLOW UP THIS WEEK. The phone number is [phone] Patient Instructions: Kidney Stones Additional Instructions: Thank you for visiting our Emergency Department. We appreciate you trusting us with your care. If any additional problems come up don't hesitate to return to visit us. Please follow up with your primary care provider so they can plan additional care if needed and know about the problem that you had. If symptoms worsen come back to the Emergency Department. Any concerning symptoms that start such as chest pain, shortness of air, weakness or numbness on one side of the body, running high fevers or any other concerning symptoms return to the ER. Scripts Ciprofloxacin Hcl (CIPRO) 500 Mg Tablet 1 TAB PO BID for 7 Days, #14 TAB 0 Refills Prov: BRYNN RANKIN DO 04/11/20 Naproxen Sodium (ANAPROX DS) 550 Mg Tablet 1 TAB PO BID PRN for PAIN for 15 Days, #30 TAB 0 Refills Prov: BRYNN RANKIN DO 04/11/20 Oxycodone Hcl (OXYCODONE HCL) 5 Mg Capsule 5 MG PO PRN Q6HRS PRN for PAIN, #20 TAB 0 Refills Prov: BRYNN RANKIN DO 04/11/20 BRYNN RANKIN DO Apr 11, 2020 08:05
[2020-04-11 08:19] LABS: CALCIUM 9.3 mg/dL (8.5-10.1); CREATININE 0.9 mg/dL (0.6-1.0); GFR 84.8; POTASSIUM 4.1 mmol/L (3.5-5.1)
[2020-04-11 08:21] LABS: BASO # 0.1 x10^3/uL (0.0-0.2); BASO % 1 % (0-3); EOS # 0.6 x10^3/uL (0.0-0.7); EOS % 11 % (0-3); HEMATOCRIT 38.5 % (36.0-47.0); HEMOGLOBIN 12.7 g/dL (12.0-15.5); LYMPH # 1.9 x10^3/uL (1.0-4.8); LYMPH % 36 % (24-48); MEAN CORPUSCULAR HEMOGLOBIN 28 pg (25-35); MEAN CORPUSCULAR HGB CONC 33 g/dL (31-37); MEAN CORPUSCULAR VOLUME 85 fL (79-100); MONO # 0.4 x10^3/uL (0.0-1.1); MONO % 8 % (0-9); NEUT # 2.3 x10^3/uL (1.8-7.7); NEUT % 44 % (31-73); PLATELET COUNT 205 x10^3/uL (140-400); RED BLOOD COUNT 4.55 x10^6/uL (3.50-5.40); RED CELL DISTRIBUTION WIDTH 14.3 % (11.5-14.5); WHITE BLOOD COUNT 5.3 x10^3/uL (4.0-11.0)
[2020-04-11 08:24] LABS: ALBUMIN 2.8 g/dL (3.4-5.0); ALBUMIN/GLOBULIN RATIO 0.5 (1.0-1.7); TOTAL BILIRUBIN 0.2 mg/dL (0.2-1.0)
[2020-04-11 08:48] LABS: BILIRUBIN,URINE NEGATIVE (NEG); CLARITY,URINE CLEAR; COLOR,URINE YELLOW; NITRITE,URINE NEGATIVE (NEG); PROTEIN,URINE NEGATIVE (NEG-TRACE)
[2020-04-11] MEDS: ONDANSETRON PF 4 MG/2 ML VIAL. IVP ONE (08:56)
[2020-04-11] MEDS: MORPHINE SULFATE 4 MG/ML VIAL. IV ONE ×2 (08:57→10:15)
[2020-04-11] MEDS: KETOROLAC 30 MG/ML VIAL. IVP ONE (08:57)
--- NOTE | 2020-04-11 08:57 | RAD ---
CT ABDOMEN PELVIS WO CONTRAST INDICATION: flank pain, history of kidney stone / Spl. Instructions: / History: EXAM: Noncontrast CT of the abdomen and pelvis. Coronal and sagittal reformatted images were performed. PQRS compliance statement: One or more of the following individualized dose reduction techniques were utilized for this examination: 1. Automated exposure control 2. Adjustment of the mA and/or kV according to patient size 3. Use of iterative reconstruction technique COMPARISON: None FINDINGS: No free air, free fluid, or fluid collection. Lower chest: The visualized lower lungs are aerated. No pleural or pericardial effusion. ABDOMEN: Liver: The noncontrast liver is homogeneous in attenuation. Gallbladder and biliary: Normal gallbladder without radiopaque stone. Normal caliber bile ducts. Spleen: Normal spleen. Pancreas: The noncontrast pancreas is homogeneous in attenuation without peripancreatic inflammatory changes. Adrenal glands: Normal adrenal glands. Kidneys and ureters: Right pelviectasis with a 1.5 x 1.0 x 1.8 cm stone at the ureteropelvic junction. Multiple additional bilateral renal calculi measuring up to 0.4 cm on the right and 2.2 cm on the left. GI tract: The stomach is decompressed and poorly evaluated. Normal caliber small bowel and colon. Normal appendix. Vascular structures: Normal caliber abdominal aorta. Lymph nodes: No lymphadenopathy in the abdomen or pelvis. PELVIS: Genitourinary system: Normal bladder. Uterus is present. Left ovarian 3.3 cm cyst SKELETAL STRUCTURES AND SOFT TISSUES: No fracture or destructive lesion in the visualized skeleton. IMPRESSION: 1. Mild right pelviectasis with a large 1.8 cm calculus at the ureteropelvic junction. 2. Additional nonobstructive bilateral renal calculi. Electronically signed by: Homero Batres MD (04/11/2020 8:54 AM) [id number]
[2020-04-11 09:01] LABS: BACTERIA,URINE FEW /HPF (0-FEW); RBC,URINE OCC /HPF (0-2)
[2020-04-11 10:36] LABS: PLT ESTIMATE ADEQUATE (ADEQUATE)
[2020-04-11] MEDS: cefTRIAXone IV Push 1 GM VIAL. IVP ONE (11:04)
[2020-04-11] MEDS ORDERED: OXYC5CAP PO (11:51)
[2020-04-11] MEDS ORDERED: NAPR-682 PO (11:51)
[2020-04-11] MEDS ORDERED: CIPR500T94 PO (11:51)
[2020-04-11 12:11] VITALS: BP 119/68
== END 2020-04-11 12:10 | disposition home or self-care (01) ==
LOC: ER 07:27
DX: N20.2 Calculus of kidney with calculus of ureter (principal); Z88.1 Allergy status to other antibiotic agents; Z88.6 Allergy status to analgesic agent
CPT/HCPCS: 36415; 74176; 80053; 81001; 81025; 83690; 85025; 87086; 96374; 96375; 96376; 99285; J0696; J1885; J2270; J2405

== ENCOUNTER 2020-06-02 07:48 | Emergency (ER) | payer OTHER ==
[~2020-06-02] VITALS: Ht 170.2 cm; Wt 85.0 kg
[~2020-06-02 07:48] MED LIST changes: +CIPR500T94 PO; +NAPR-682 PO; +OXYC5CAP PO
--- NOTE | 2020-06-02 07:58 | PHYS DOC ---
Past Medical History Past Medical History: Diabetes-Type II, Hypertension, Kidney Stone, Other Additional Past Medical Histor: AUTOIMMUNE HEPATITIS Past Surgical History: Smoking Status: Current Every Day Smoker Alcohol Use: None General Adult EDM: Chief Complaint: FLANK PAIN HPI: HPI: 40 yo AA F PMH thc use, DM, HTN, immune hepatitis on daily prednisone (has not missed a dose) and nephrolithiasis, presents to the ed with c/o right flank pain that started two days ago, "I got sick yesterday," reports associated nausea and nbnb vomiting yesterday. Also reports increased urinary frequency and dysuria. History of cystoscopy and ureteral stent placement. Has not seen urology as an outpatient-reports "[facility] never calls me back." EMR reviewed patient was seen here April 11, 2020, with a 1.8 cm stone at the ureteropelvic junction. Patient had numerous stones on CT, 0.4 cm in right renal pelvis and 2.2 cm in left renal pelvis. NHG-C-oxfmrto. Patient also with no PCP stating "no one ever answers when I call." Review of Systems: Review of Systems: Constitutional: Denies fever or chills. [] Eyes: Denies change in visual acuity. [] HENT: Denies nasal congestion or sore throat. [] Respiratory: Denies cough or shortness of breath. [] Cardiovascular: Denies chest pain or edema. [] GI: Denies abdominal pain, bloody stools or diarrhea. [] : Denies hematuria or urinary retention Musculoskeletal: Denies joint pain or swelling Integument: Denies rash or diaphoresis Neurologic: Denies headache, focal weakness or sensory changes. [] Endocrine: Denies polyuria or polydipsia. [] Lymphatic: Denies swollen glands. [] Psychiatric: Denies depression or anxiety. [] Heart Score: Risk Factors: Risk Factors: DM, Current or recent (<one month) smoker, HTN, HLP, family history of CAD, obesity. Risk Scores: Score 0 - 3: 2.5% MACE over next 6 weeks - Discharge Home Score 4 - 6: 20.3% MACE over next 6 weeks - Admit for Clinical Observation Score 7 - 10: 72.7% MACE over next 6 weeks - Early Invasive Strategies Allergies: Allergies: Allergies Coded Allergies Type Severity Reaction Last Updated Verified acetaminophen Allergy Intermediate 04/11/20 Yes doxycycline Allergy Intermediate SWELLING 04/11/20 Yes Physical Exam: PE: Constitutional: Well developed, calm appearing, moves easily/ in no distress, HENT: Normocephalic, atraumatic, Eyes: EOMI, conjunctiva normal, no discharge. Neck: Normal range of motion, supple, Cardiovascular: S1/2 present, regular rhythm Lungs & Thorax: Speaking in full sentences, bilateral equal chest rise, no tachypnea or increased work of breathing Abdomen: soft, no tenderness, no murphys sign, no peritonitis or guarding or rigidity Skin: Warm, dry, no erythema, no rash. [] Back: No tenderness, right CVA tenderness. [] Extremities: No tenderness, no cyanosis, no edema Neurologic: Alert and oriented X 3, normal motor function, normal sensory function, no focal deficits noted. [] Psychologic: Affect flat, judgement normal, mood normal. [] EKG: EKG: [] Radiology/Procedures: Radiology/Procedures: IMAGING REPORT Signed PATIENT: ARTURO ARANGO ACCOUNT: [id number] : 1980 LOCATION: ER AGE: 39 SEX: F EXAM STATUS: REG ER ORD. PHYSICIAN: RAGHU VALENTIN DO REASON: r flank pain, h/o stones PROCEDURE: CT ABDOMEN PELVIS WO CONTRAST Examination: CT of the abdomen pelvis without contrast HISTORY: History of right flank pain COMPARISON: 04/11/2020 TECHNIQUE: Axial CT images of the abdomen pelvis were performed without contrast. Coronal and sagittal reformats performed Exposure: One or more of the following individualized dose reduction techniques were utilized for this examination: 1. Automated exposure control 2. Adjustment of the mA and/or kV according to patient size 3. Use of iterative reconstruction technique FINDINGS: Minimal bibasilar lung atelectasis. No evidence of free air identified in the abdomen. The visualized noncontrasted liver, spleen, adrenals grossly appears unremarkable. The gallbladder is mildly distended. The stomach is mildly distended. The small bowel is nondilated. Feces and gas noted in the colon. Multiple bilateral intrarenal collecting system calculi identified with the largest measuring 1.8 cm in the left kidney. There is a 1.8 cm calculus identified in the right renal pelvis causing minimal hydronephrosis. Urinary bladder is mildly distended. This cystic structure identified in the left adnexa measuring 3.4 cm. No evidence of lytic bony destructive lesion. Mild soft tissue edema identified in the subcutaneous region of the lower back IMPRESSION: 1. 1.8 cm calculus identified in the right renal pelvis causing minimal hydronephrosis. 2. Multiple bilateral intrarenal collecting system calculi identified with the largest measuring 1.8 cm in the left kidney. 3. 3.4 cm cystic structure identified in the left adnexa could be a cyst or cystic lesion. Follow-up ultrasound pelvis can be considered. Electronically signed by: Kana Rodriguez MD (06/02/2020 9:01 AM) [id number] DICTATED and SIGNED BY: KANA RODRIGUEZ MD DATE: 06/02/20 [id number] IMAGING REPORT Signed PATIENT: ARTURO ARANGO ACCOUNT: [id number] : 1980 LOCATION: ER AGE: 39 SEX: F EXAM STATUS: REG ER ORD. PHYSICIAN: RAGHU VALENTIN DO REASON: flank pain w/hematuria, r/o dissection, PROCEDURE: CT ANGIO CHEST ABD PELVIS CT angiogram chest, abdomen and pelvis pre and postcontrast: Reason for examination: Flank pain with hematuria. Evaluate for dissection. Helical images were obtained through the chest, abdomen and pelvis pre and post administration of 90 cc Omnipaque 350 using angiographic protocol. 3-D MIPS reconstruction was performed in sagittal and coronal planes and volume rendered image was obtained. Exposure: One or more of the following individualized dose reduction techniques were utilized for this examination: 1. Automated exposure control 2. Adjustment of the mA and/or kV according to patient size 3. Use of iterative reconstruction technique. No abnormality seen at the thyroid gland. The trachea and mainstem bronchi show no intraluminal lesions. No abnormality seen at the esophagus. There is a small hiatal hernia. The thoracic aorta shows no aneurysmal dilatation or dissection. The heart size is normal with no pericardial effusion. There is no evidence of pulmonary embolus. The lung drake show some dependent atelectasis but no consolidated infiltrates or pleural effusions. No acute bony abnormalities are seen in the thorax. No abnormality seen at the liver, spleen, adrenal glands, pancreas or gallbladder. The abdominal aorta is normal in course and caliber. There is no evidence of aneurysm or dissection. No abnormality seen at the appendix. There is no evidence of diverticulosis, diverticulitis or colitis. The small intestinal tract shows no abnormal dilatation, wall thickening or obstruction. There is a small hiatal hernia but no other abnormality seen at the stomach or duodenum. There are nonobstructing renal calculi bilaterally. There are also however larger staghorn type calculi in the upper pole of the left kidney and there is a large calculus measuring 1.9 x 1.1 cm in greatest dimensions in the right renal pelvis at the ureteropelvic junction with mild dilatation of the right renal pelvis. No distal ureteral calculi are identified. No abnormality seen at the bladder or uterus. There are ovarian cysts with the cyst on the left ovary measuring 3 cm in size. Cyst on the right ovary measures 1.8 cm in size. No free fluid or free air seen in the abdomen or pelvis. No acute abnormalities are seen in the lumbar spine or pelvis. IMPRESSION: No evidence of aortic aneurysm or dissection. Small hiatal hernia. Nonobstructing calculi seen bilaterally with larger staghorn type calculi in the upper pole the left kidney. 1.9 x 1.1 cm calculus in the right renal pelvis at the right ureteropelvic junction with mild dilatation of the right renal pelvis. Bilateral ovarian cysts with the left ovarian cyst measuring 3 cm in size and the right ovarian cyst measuring 1.8 cm in size. Electronically signed by: Melquiades Cain MD (06/02/2020 12:04 PM) [facility] DICTATED and SIGNED BY: MELQUIADES CAIN MD DATE: 06/02/20 [id number] 0 Course & Med Decision Making: Course & Med Decision Making Pertinent Labs and Imaging studies reviewed. (See chart for details) Patient presents the ED with complaints of right flank pain that is not radiating, very calm appearing. CT consistent with bilateral kidney stones with possible minimal hydronephrosis on the right side. I compared this to patient's CAT scan from April 11 that showed the same size kidney stone in her right kidney, that was present at the UP junction. I suspect the stone is too large to pass through the ureter. I educated patient she would need lithotripsy with urology so that the stone could pass-pain from kidney stones are caused from blockage/obstructive/movement into ureters bladder or urethra. I recommended NSAIDs for pain. Urinalysis with blood and few bacteria, is on her menses. Patient with no leukocytosis or fever. She also has uncontrolled asymptomatic hypertension. Abdomen is soft with no focal tenderness. CTA c/a/p ordered due to flank pain, hematuria, uncontrolled hypertension and persistent complaint of pain requesting a stronger pain medication-despite patient calm/well appearance and she is in no active distress. No signs of aortic aneurysm or dissection. Patient, in no distress at time of discharge. Will discharge home with strict ED return precautions were given for fever, nausea, vomiting, severe pain. Encouraged urgent outpatient follow-up with PMD and urology. Life-threatening processes were considered but are low suspicion at this time, given history, physical exam and ED workup. Pt was educated on all prescription medications and adverse effects. All patient's questions were answered and pt was stable at time of discharge. Life/limb-threatening differential includes but is not limited to, aortic dissection/aneurysm, cauda equina syndrome, transverse myelitis, spinal cord/epidural compression syndromes, discitis, spinal stenosis, epidural abscess or hematoma, osteomyelitis, disc herniation, surgical abdomen, stable or unstable fracture, renal/ureteral colic, sepsis, meningitis, musculoskeletal injury, traumatic injury, intraabdominal/retroperitoneal or pelvic bleeding. I spoken with the patient and her caregivers. I explained the patient's condition, diagnoses and treatment plan based on the information available to me at this time. I have answered the patient and her caregiver's questions and addressed any concerns. The patient and her caregivers have a good understanding of patient's diagnosis, condition and treatment plan as can be expected at this point. Vital signs have been stable. Patient's condition is stable and appropriate for discharge from the emergency department. Patient will pursue further outpatient evaluation with primary care physician or other designated or consulting physician as outlined in the discharge instructions. The patient and/or caregivers are agreeable to this plan of care and follow-up instructions have been explained in detail. The patient and/or caregivers have received these instructions in written form and have expressed an understanding of the discharge instructions. The patient and/or caregivers are aware that any significant change of condition or worsening of symptoms should prompt immediate return to this or the closest emergency department or call to 911. Reema Disclaimer: Reema Disclaimer: This electronic medical record was generated, in whole or in part, using a voice recognition dictation system. Departure Departure Impression: Primary Impression: Bilateral nephrolithiasis Additional Impression: Uncontrolled hypertension Disposition: 01 DC HOME SELF CARE/HOMELESS Condition: STABLE Referrals: NO PCP (PCP) FOLLOW UP WITH FAMILY MEDICINE: Family Medicine Address: [address] [place] [address] Patient Instructions: Diet for Kidney Stones, Kidney Stones Additional Instructions: FOLLOW UP WITH UROLOGY: [facility] [address] [place] [address] appointments: [phone] EMERGENCY DEPARTMENT GENERAL DISCHARGE INSTRUCTIONS Thank you for coming to [facility] Emergency Department (ED) today and trusting us with you care. We trust that you had a positive experience in our Emergency Department. If you wish to speak to the department management, you may call the Director at [phone]. YOUR FOLLOW UP INSTRUCTIONS ARE FOLLOWS: 1. Do you have a private Doctor? If you do not have a private doctor, please ask for a resource list of physicians or clinics that may be able to assist you with follow up care. 2. The Emergency Physicain has interpreted your x-rays. The X-Ray specialist will also review them. If there is a change in the findings, you will be notified in 48 hours when at all possible. 3. A lab test or culture has been done, your results will be reviewed and you will be notified if you need a change in treatment. ADDITIONAL INSTRUCTIONS AND INFORMATION: 1. Your care today has been supervised by a physician who is specially trained in emergency care. Many problems require more than one evaluation for a complete diagnosis and treatment. We recommend that you schedule your follow up appointment as recommended to ensure complete treatment of you illness or injury. If you are unable to obtain follow up care and continue to have a problem, or if your condition worsens, we recommend that you return to the ED. 2. We are not able to safely determine your condition over the phone nor are we able to give sound medical advice over the phone. For these safety reasons, if you call for medical advice we will ask you to come to the ED for further evaluation. 3. If you have any questions regarding these discharge instructions please call the ED at [phone]. SAFETY INFORMATION: In the interest of safety, wellness, and injury prevention; we encourage you to wear your sealbelt, if you smoke; quite smoking, and we encourage family to use a protective helmet for bicycling and other sporting events that present an increased risk for head injury. IF YOUR SYMPTOMS WORSEN OR NEW SYMPTOMS DEVELOP, OR YOU HAVE CONCERNS ABOUT YOUR CONDITION; OR IF YOUR CONDITION WORSENS WHILE YOU ARE WAITING FOR YOUR FOLLOW UP APPOINTMENT; EITHER CONTACT YOUR PRIMARY CARE DOCTOR, THE PHYSICIAN WHOSE NAME AND NUMBER YOU WERE GIVEN, OR RETURN TO THE ED IMMEDIATELY. Scripts Ibuprofen (IBUPROFEN) 600 Mg Tablet 600 MG PO PRN Q6HRS PRN for INFLAMMATION, #20 TAB Prov: RAGHU VALENTIN DO 06/02/20 RAGHU VALENTIN DO Jun 02, 2020 07:58
[2020-06-02] MEDS ORDERED: IV NORMAL SALINE 1000ML BAG 1,000 ML IV ONE (08:00)
[2020-06-02] MEDS ORDERED: HYDROmorphone 2 MG/ML VIAL IVP ONE ×2 (08:00→09:00)
[2020-06-02] MEDS ORDERED: ONDANSETRON PF 4 MG/2 ML VIAL. IVP ONE (08:00)
[2020-06-02] MEDS ORDERED: TAMSULOSIN 0.4 MG CAP.ER.24H. PO ONE (08:00)
[2020-06-02 08:10] LABS: CLARITY,URINE BLOODY; COLOR,URINE RED
[2020-06-02 08:20] LABS: RBC,URINE TNTC /HPF (0-2)
[2020-06-02 08:21] LABS: BACTERIA,URINE FEW /HPF (0-FEW)
[2020-06-02 08:27] LABS: BASO # 0.1 x10^3/uL (0.0-0.2); BASO % 1 % (0-3); EOS # 0.5 x10^3/uL (0.0-0.7); EOS % 11 % (0-3); HEMATOCRIT 36.2 % (36.0-47.0); HEMOGLOBIN 11.9 g/dL (12.0-15.5); LYMPH # 2.1 x10^3/uL (1.0-4.8); LYMPH % 46 % (24-48); MEAN CORPUSCULAR HEMOGLOBIN 28 pg (25-35); MEAN CORPUSCULAR HGB CONC 33 g/dL (31-37); MEAN CORPUSCULAR VOLUME 84 fL (79-100); MONO # 0.4 x10^3/uL (0.0-1.1); MONO % 9 % (0-9); NEUT # 1.5 x10^3/uL (1.8-7.7); NEUT % 33 % (31-73); PLATELET COUNT 176 x10^3/uL (140-400); RED CELL DISTRIBUTION WIDTH 14.2 % (11.5-14.5); WHITE BLOOD COUNT 4.6 x10^3/uL (4.0-11.0)
[2020-06-02 08:32] LABS: CALCIUM 8.8 mg/dL (8.5-10.1); CREATININE 0.9 mg/dL (0.6-1.0); GFR 84.8
--- NOTE | 2020-06-02 09:04 | RAD ---
Examination: CT of the abdomen pelvis without contrast HISTORY: History of right flank pain COMPARISON: 04/11/2020 TECHNIQUE: Axial CT images of the abdomen pelvis were performed without contrast. Coronal and sagitta l reformats performed Exposure: One or more of the following individualized dose reduction techniques were utilized for thi s examination: 1. Automated exposure control 2. Adjustment of the mA and/or kV according to patient size 3. Use of iterative reconstruction technique FINDINGS: Minimal bibasilar lung atelectasis. No evidence of free air identified in the abdomen. The visualized noncontrasted liver, spleen, adrenals grossly appears unremarkable. The gallbladder is mildly distended. The stomach is mildly distended. The small bowel is nondilated. Feces and gas noted in the colon. Multiple bilateral intrarenal collecting system calculi identified with the largest measuring 1.8 cm in the left kidney. There is a 1.8 cm calculus identified in the right renal pelvis causing minimal h ydronephrosis. Urinary bladder is mildly distended. This cystic structure identified in the left adnexa measuring 3. 4 cm. No evidence of lytic bony destructive lesion. Mild soft tissue edema identified in the subcutaneous region of the lower back IMPRESSION: 1. 1.8 cm calculus identified in the right renal pelvis causing minimal hydronephrosis. 2. Multiple bilateral intrarenal collecting system calculi identified with the largest measuring 1.8 cm in the left kidney. 3. 3.4 cm cystic structure identified in the left adnexa could be a cyst or cystic lesion. Follow-up ultrasound pelvis can be considered. Electronically signed by: Kana Rodriguez MD (06/02/2020 9:01 AM) [id number]
[2020-06-02] MEDS ORDERED: KETOROLAC 15 MG/ML VIAL. IVP ONE (10:15)
[2020-06-02] MEDS ORDERED: IBUP-1007 PO (10:44)
[2020-06-02] MEDS ORDERED: CONTRAST GIVEN. MC PRN (11:15)
[2020-06-02] MEDS ORDERED: IOHEXOL 350 MG/ML 100 ML VIAL. IV ONE (11:15)
[2020-06-02 11:50] VITALS: BP 166/79
--- NOTE | 2020-06-02 12:08 | RAD ---
CT angiogram chest, abdomen and pelvis pre and postcontrast: Reason for examination: Flank pain with hematuria. Evaluate for dissection. Helical images were obtained through the chest, abdomen and pelvis pre and post administration of 90 cc Omnipaque 350 using angiographic protocol. 3-D MIPS reconstruction was performed in sagittal and c oronal planes and volume rendered image was obtained. Exposure: One or more of the following individualized dose reduction techniques were utilized for thi s examination: 1. Automated exposure control 2. Adjustment of the mA and/or kV according to patient size 3. Use of iterative reconstruction technique. No abnormality seen at the thyroid gland. The trachea and mainstem bronchi show no intraluminal lesio ns. No abnormality seen at the esophagus. There is a small hiatal hernia. The thoracic aorta shows no aneurysmal dilatation or dissection. The heart size is normal with no pericardial effusion. There is no evidence of pulmonary embolus. The lung drake show some dependent atelectasis but no consolidate d infiltrates or pleural effusions. No acute bony abnormalities are seen in the thorax. No abnormality seen at the liver, spleen, adrenal glands, pancreas or gallbladder. The abdominal aort a is normal in course and caliber. There is no evidence of aneurysm or dissection. No abnormality see n at the appendix. There is no evidence of diverticulosis, diverticulitis or colitis. The small intes tinal tract shows no abnormal dilatation, wall thickening or obstruction. There is a small hiatal her rachel but no other abnormality seen at the stomach or duodenum. There are nonobstructing renal calculi bilaterally. There are also however larger staghorn type calculi in the upper pole of the left kidney and there is a large calculus measuring 1.9 x 1.1 cm in greatest dimensions in the right renal pelvi s at the ureteropelvic junction with mild dilatation of the right renal pelvis. No distal ureteral ca lculi are identified. No abnormality seen at the bladder or uterus. There are ovarian cysts with the cyst on the left ovary measuring 3 cm in size. Cyst on the right ovary measures 1.8 cm in size. No free fluid or free air s een in the abdomen or pelvis. No acute abnormalities are seen in the lumbar spine or pelvis. IMPRESSION: No evidence of aortic aneurysm or dissection. Small hiatal hernia. Nonobstructing calculi seen bilaterally with larger staghorn type calculi in the upper pole the left kidney. 1.9 x 1.1 cm calculus in the right renal pelvis at the right ureteropelvic junction with mild dilatat ion of the right renal pelvis. Bilateral ovarian cysts with the left ovarian cyst measuring 3 cm in size and the right ovarian cyst measuring 1.8 cm in size. Electronically signed by: Aixa Ingram MD (06/02/2020 12:04 PM) SHAZIA
== END 2020-06-02 12:45 | disposition home or self-care (01) ==
LOC: ER 07:48
DX: N13.2 Hydronephrosis with renal and ureteral calculous obstruction (principal); R11.2 Nausea with vomiting, unspecified; E11.9 Type 2 diabetes mellitus without complications; I10 Essential (primary) hypertension; F17.200 Nicotine dependence, unspecified, uncomplicated; Z88.1 Allergy status to other antibiotic agents; Z88.6 Allergy status to analgesic agent
CPT/HCPCS: 36415; 71275; 74174; 74176; 80048; 81001; 81025; 85025; 96361; 96374; 96375; 96376; 99285; J1170; J1885; J2405; J7030; Q9967

== ENCOUNTER 2020-08-25 08:09 | Emergency (ER) | payer OTHER ==
[~2020-08-25] VITALS: Ht 167.6 cm; Wt 109.0 kg
[~2020-08-25 08:09] MED LIST changes: +IBUP-1007 PO
[2020-08-25 08:50] LABS: BASO # 0.1 x10^3/uL (0.0-0.2); BASO % 2 % (0-3); EOS # 0.4 x10^3/uL (0.0-0.7); EOS % 8 % (0-3); HEMOGLOBIN 12.6 g/dL (12.0-15.5); LYMPH # 1.3 x10^3/uL (1.0-4.8); LYMPH % 26 % (24-48); MEAN CORPUSCULAR HEMOGLOBIN 28 pg (25-35); MEAN CORPUSCULAR HGB CONC 33 g/dL (31-37); MEAN CORPUSCULAR VOLUME 85 fL (79-100); MONO # 0.4 x10^3/uL (0.0-1.1); MONO % 9 % (0-9); NEUT # 2.7 x10^3/uL (1.8-7.7); NEUT % 56 % (31-73); PLATELET COUNT 173 x10^3/uL (140-400); RED CELL DISTRIBUTION WIDTH 14.3 % (11.5-14.5); WHITE BLOOD COUNT 4.8 x10^3/uL (4.0-11.0)
[2020-08-25] MEDS ORDERED: KETOROLAC 15 MG/ML VIAL. IVP ONE (09:00)
[2020-08-25 09:02] LABS: CALCIUM 8.8 mg/dL (8.5-10.1); CREATININE 0.9 mg/dL (0.6-1.0); GFR 84.8; POTASSIUM 3.9 mmol/L (3.5-5.1)
[2020-08-25 09:08] LABS: ALBUMIN 2.8 g/dL (3.4-5.0); DIRECT BILIRUBIN 0.1 mg/dL (0.0-0.2); MAGNESIUM 1.5 mg/dL (1.8-2.4); TOTAL BILIRUBIN 0.3 mg/dL (0.2-1.0); TOTAL PROTEIN 8.5 g/dL (6.4-8.2)
[2020-08-25 09:12] LABS: BILIRUBIN,URINE NEGATIVE (NEG); CLARITY,URINE CLEAR; COLOR,URINE YELLOW; NITRITE,URINE NEGATIVE (NEG); PH,URINE 5.5 (<5.0-8.0); PROTEIN,URINE NEGATIVE (NEG-TRACE); UROBILINOGEN,URINE 0.2 mg/dL (0.2 mg/dL)
[2020-08-25 09:28] LABS: BACTERIA,URINE FEW /HPF (0-FEW); RBC,URINE OCC /HPF (0-2)
--- NOTE | 2020-08-25 09:48 | RAD ---
XR CHEST 1V Clinical Indication: Reason: chest pain Comparison: AP chest March 12, 2020. Findings: The cardiomediastinal silhouette is normal. Lungs are clear. There is no pneumothorax. No pleural eff usion is appreciated. No acute bone abnormality. IMPRESSION: No acute cardiopulmonary process. Electronically signed by: Santhosh Callahan MD (08/25/2020 9:45 AM) [id number]
[2020-08-25] MEDS ORDERED: MORPHINE SULFATE 4 MG/ML VIAL. IV ONE (10:00)
[2020-08-25 10:08] VITALS: BP 170/90
--- NOTE | 2020-08-25 10:13 | PHYS DOC ---
Past Medical History Past Medical History: Diabetes-Type II, Hypertension, Kidney Stone, Other Additional Past Medical Histor: AUTOIMMUNE HEPATITIS Past Surgical History: Smoking Status: Current Every Day Smoker Alcohol Use: None Adult General Chief Complaint Chief Complaint: CHEST PAIN HPI HPI Patient is a 39 year old female with a past medical history of diabetes and hypertension presents emergency department complaint of new onset of chest pain. Patient states this started yesterday morning approximately 7 AM with a new onset of right anterior chest pain radiation to bilateral portions of the anterior chest. Denies any arm or jaw involvement. Denies any associated nausea, vomiting, fever or chills. Denies any history of similar symptoms. Review of Systems Review of Systems Constitutional: Denies fever or chills [] Eyes: Denies change in visual acuity, redness, or eye pain [] HENT: Denies nasal congestion or sore throat [] Respiratory: Denies cough or shortness of breath [] Cardiovascular: No additional information not addressed in HPI [] GI: Denies abdominal pain, nausea, vomiting, bloody stools or diarrhea [] : Denies dysuria or hematuria [] Musculoskeletal: Denies back pain or joint pain [] Integument: Denies rash or skin lesions [] Neurologic: Denies headache, focal weakness or sensory changes [] Endocrine: Denies polyuria or polydipsia [] All other systems were reviewed and found to be within normal limits, except as documented in this note. Current Medications Current Medications Current Medications Medications (Trade) Dose Ordered Sig/Perla Start Time Stop Time Status Last Admin Dose Admin Ketorolac Tromethamine (Toradol 15mg Vial) 15 mg 1X ONCE 08/25/20 09:00 08/25/20 09:01 DC 08/25/20 09:14 15 MG Morphine Sulfate (Morphine Sulfate) 4 mg 1X ONCE 08/25/20 10:00 08/25/20 10:01 DC 08/25/20 09:55 4 MG Allergies Allergies Allergies Coded Allergies Type Severity Reaction Last Updated Verified acetaminophen Allergy Intermediate 04/11/20 Yes doxycycline Allergy Intermediate SWELLING 04/11/20 Yes Physical Exam Physical Exam Constitutional: Well developed, well nourished, no acute distress, non-toxic appearance. [] HENT: Normocephalic, atraumatic, bilateral external ears normal, oropharynx moist, no oral exudates, nose normal. [] Eyes: PERRLA, EOMI, conjunctiva normal, no discharge. [] Neck: Normal range of motion, no tenderness, supple, no stridor. [] Cardiovascular:Heart rate regular rhythm, no murmur Lungs & Thorax: Bilateral breath sounds clear to auscultation left anterior chest wall tender Abdomen: Bowel sounds normal, soft, no tenderness, no masses, no pulsatile masses. [] Skin: Warm, dry, no erythema, no rash. [] Back: No tenderness, no CVA tenderness. [] Extremities: No tenderness, no cyanosis, no clubbing, ROM intact, no edema. [] Neurologic: Alert and oriented X 3, normal motor function, normal sensory function, no focal deficits noted. [] Psychologic: Affect normal, judgement normal, mood normal. [] Current Patient Data Vital Signs Vital Signs Date Time Temp Pulse Resp B/P (MAP) Pulse Ox O2 Delivery O2 Flow Rate FiO2 08/25/20 09:55 16 99 Room Air 08/25/20 08:15 99.0 96 165/102 (123) 99.0 Lab Values Laboratory Tests Test 08/25/20 08:39 08/25/20 09:00 08/25/20 09:02 White Blood Count 4.8 x10^3/uL (4.0-11.0) Red Blood Count 4.50 x10^6/uL (3.50-5.40) Hemoglobin 12.6 g/dL (12.0-15.5) Hematocrit 38.0 % (36.0-47.0) Mean Corpuscular Volume 85 fL (79-100) Mean Corpuscular Hemoglobin 28 pg (25-35) Mean Corpuscular Hemoglobin Concent 33 g/dL (31-37) Red Cell Distribution Width 14.3 % (11.5-14.5) Platelet Count 173 x10^3/uL (140-400) Neutrophils (%) (Auto) 56 % (31-73) Lymphocytes (%) (Auto) 26 % (24-48) Monocytes (%) (Auto) 9 % (0-9) Eosinophils (%) (Auto) 8 % (0-3) H Basophils (%) (Auto) 2 % (0-3) Neutrophils # (Auto) 2.7 x10^3/uL (1.8-7.7) Lymphocytes # (Auto) 1.3 x10^3/uL (1.0-4.8) Monocytes # (Auto) 0.4 x10^3/uL (0.0-1.1) Eosinophils # (Auto) 0.4 x10^3/uL (0.0-0.7) Basophils # (Auto) 0.1 x10^3/uL (0.0-0.2) Sodium Level 138 mmol/L (136-145) Potassium Level 3.9 mmol/L (3.5-5.1) Chloride Level 103 mmol/L (98-107) Carbon Dioxide Level 21 mmol/L (21-32) Anion Gap 14 (6-14) Blood Urea Nitrogen 9 mg/dL (7-20) Creatinine 0.9 mg/dL (0.6-1.0) Estimated GFR (Cockcroft-Gault) 84.8 Glucose Level 218 mg/dL (70-99) H Calcium Level 8.8 mg/dL (8.5-10.1) Magnesium Level 1.5 mg/dL (1.8-2.4) L Total Bilirubin 0.3 mg/dL (0.2-1.0) Direct Bilirubin 0.1 mg/dL (0.0-0.2) Aspartate Amino Transferase (AST) 24 U/L (15-37) Alanine Aminotransferase (ALT) 21 U/L (14-59) Alkaline Phosphatase 92 U/L (46-116) Troponin I Quantitative < 0.017 ng/mL (0.000-0.055) Total Protein 8.5 g/dL (6.4-8.2) H Albumin 2.8 g/dL (3.4-5.0) L Lipase 189 U/L (73-393) Urine Collection Type Unknown Urine Color Yellow Urine Clarity Clear Urine pH 5.5 (<5.0-8.0) Urine Specific [place] 1.020 (1.000-1.030) Urine Protein Negative mg/dL (NEG-TRACE) Urine Glucose (UA) Negative mg/dL (NEG) Urine Ketones (Stick) Negative mg/dL (NEG) Urine Blood Negative (NEG) Urine Nitrite Negative (NEG) Urine Bilirubin Negative (NEG) Urine Urobilinogen Dipstick 0.2 mg/dL (0.2 mg/dL) Urine Leukocyte Esterase Negative (NEG) Urine RBC Occ /HPF (0-2) Urine WBC 1-4 /HPF (0-4) Urine Squamous Epithelial Cells Many /LPF Urine Bacteria Few /HPF (0-FEW) Urine Mucus Mod /LPF POC Urine HCG, Qualitative Hcg negative (Negative) Laboratory Tests 08/25/20 08:39 Laboratory Tests 08/25/20 08:39 EKG EKG [] Radiology/Procedures Radiology/Procedures [] Course & Med Decision Making Course & Med Decision Making Pertinent Labs and Imaging studies reviewed. (See chart for details) 39-year-old female presented emergency department for new onset of new onset of chest pain. Reproducible right anterior chest wall tenderness, low likelihood of ACS. Will obtain ACS work-up and reevaluate. Labs, EKG and chest x-ray reviewed without any significant findings. At this time will discharge. Patient verbalized understanding agreement discharge plan Dragon Disclaimer Dragon Disclaimer This electronic medical record was generated, in whole or in part, using a voice recognition dictation system. Departure Departure Impression: Primary Impression: Chest pain Disposition: HOME / SELF CARE / HOMELESS Condition: GOOD Referrals: MALATHI TORO III DO Patient Instructions: Chest Pain (Nonspecific) Additional Instructions: EMERGENCY DEPARTMENT GENERAL DISCHARGE INSTRUCTIONS Thank you for coming to [facility] Emergency Department (ED) today and trusting us with you care. We trust that you had a positive experience in our Emergency Department. If you wish to speak to the department management, you may call the Director at [phone]. YOUR FOLLOW UP INSTRUCTIONS ARE FOLLOWS: 1. Do you have a private Doctor? If you do not have a private doctor, please ask for a resource list of physicians or clinics that may be able to assist you with follow up care. 2. The Emergency Physicain has interpreted your x-rays. The X-Ray specialist will also review them. If there is a change in the findings, you will be notified in 48 hours when at all possible. 3. A lab test or culture has been done, your results will be reviewed and you will be notified if you need a change in treatment. ADDITIONAL INSTRUCTIONS AND INFORMATION: 1. Your care today has been supervised by a physician who is specially trained in emergency care. Many problems require more than one evaluation for a complete diagnosis and treatment. We recommend that you schedule your follow up appointment as recommended to ensure complete treatment of you illness or injury. If you are unable to obtain follow up care and continue to have a problem, or if your condition worsens, we recommend that you return to the ED. 2. We are not able to safely determine your condition over the phone nor are we able to give sound medical advice over the phone. For these safety reasons, if you call for medical advice we will ask you to come to the ED for further evaluation. 3. If you have any questions regarding these discharge instructions please call the ED at [phone]. SAFETY INFORMATION: In the interest of safety, wellness, and injury prevention; we encourage you to wear your sealbelt, if you smoke; quite smoking, and we encourage family to use a protective helmet for bicycling and other sporting events that present an increased risk for head injury. IF YOUR SYMPTOMS WORSEN OR NEW SYMPTOMS DEVELOP, OR YOU HAVE CONCERNS ABOUT YOUR CONDITION; OR IF YOUR CONDITION WORSENS WHILE YOU ARE WAITING FOR YOUR FOLLOW UP APPOINTMENT; EITHER CONTACT YOUR PRIMARY CARE DOCTOR, THE PHYSICIAN WHOSE NAME AND NUMBER YOU WERE GIVEN, OR RETURN TO THE ED IMMEDIATELY. JOSE JUDGE MD Aug 25, 2020 10:13
--- NOTE | 2020-08-25 11:38 | EKG ---
[facility] [address] [place] [address] Test Date: 2020-08-25 Test Time: 08:18:00 Pat Name: ARTURO ARANGO Department: Room: Gender: F Roll Filler: : 1980 Requested By: JOSE JUDGE Order Number: [id number] Reading MD: Measurements Intervals [place] Rate: 108 P: 47 WI: 150 QRS: -13 QRSD: 76 T: 19 QT: 332 QTc: 449 Interpretive Statements SINUS TACHYCARDIA LEFTWARD AXIS OTHERWISE NORMAL ECG RI6.02 No previous ECG available for comparison
== END 2020-08-25 10:25 | disposition home or self-care (01) ==
LOC: ER 08:09
DX: R07.89 Other chest pain (principal); E11.9 Type 2 diabetes mellitus without complications; I10 Essential (primary) hypertension; F17.200 Nicotine dependence, unspecified, uncomplicated; Z98.890 Other specified postprocedural states; Z87.442 Personal history of urinary calculi
CPT/HCPCS: 36415; 71045; 80048; 80076; 81001; 81025; 83690; 83735; 84484; 85025; 93005; 96374; 96375; 99285; J1885; J2270

== ENCOUNTER 2020-09-08 07:37 | Emergency (ER) | payer OTHER ==
[~2020-09-08] VITALS: Ht 167.6 cm; Wt 120.0 kg
--- NOTE | 2020-09-08 08:42 | RAD ---
XR KNEE _3 VIEWS_LT DATE: 09/08/2020 8:19 AM INDICATION: Left knee pain, swelling for 3 days. nki COMPARISON: None. FINDINGS: Bones: There is no evidence of acute fracture or dislocation. Joints: Mild medial compartment degenerative changes. There is no joint effusion. Miscellaneous: None. IMPRESSION: No acute osseous abnormality. Mild degenerative changes. Electronically signed by: Homero Batres MD (09/08/2020 8:40 AM) [id number]
--- NOTE | 2020-09-08 08:54 | PHYS DOC ---
Past Medical History Past Medical History: Diabetes-Type II, Hypertension, Kidney Stone, Other Additional Past Medical Histor: AUTOIMMUNE HEPATITIS Past Surgical History: Smoking Status: Current Every Day Smoker Alcohol Use: None General Adult EDM: Chief Complaint: MULTIPLE COMPLAINTS HPI: HPI: Patient is a 39 year old female who presented to ER for left knee pain for the last 3 days. Patient denies any injury. Patient complains of pain whenever she walks. Patient denies any leg pain, denies any chest pain, no trouble breathing. Patient also complains of a knot in her sternum area that she just feels 2 days ago. Patient denies any chest pain, no weight loss recently, no night sweats. Review of Systems: Review of Systems: Constitutional: Denies fever or chills. [] Eyes: Denies change in visual acuity. [] HENT: Denies nasal congestion or sore throat. [] Respiratory: Denies cough or shortness of breath. [] Cardiovascular: Denies chest pain or edema. [] GI: Denies abdominal pain, nausea, vomiting, bloody stools or diarrhea. [] : Denies dysuria. [] Musculoskeletal: Denies back pain , positive for left knee pain Integument: Denies rash. [] Neurologic: Denies headache, focal weakness or sensory changes. [] Endocrine: Denies polyuria or polydipsia. [] Lymphatic: Denies swollen glands. [] Psychiatric: Denies depression or anxiety. [] Heart Score: C/O Chest Pain: N/A Risk Factors: Risk Factors: DM, Current or recent (<one month) smoker, HTN, HLP, family history of CAD, obesity. Risk Scores: Score 0 - 3: 2.5% MACE over next 6 weeks - Discharge Home Score 4 - 6: 20.3% MACE over next 6 weeks - Admit for Clinical Observation Score 7 - 10: 72.7% MACE over next 6 weeks - Early Invasive Strategies Current Medications: Current Medications Medications (Trade) Dose Ordered Sig/Perla Start Time Stop Time Status Last Admin Dose Admin Morphine Sulfate (Morphine Sulfate) 4 mg 1X ONCE 09/08/20 09:00 09/08/20 09:01 UNV Ondansetron HCl (Zofran) 4 mg 1X ONCE 09/08/20 09:00 09/08/20 09:01 UNV Allergies: Allergies: Allergies Coded Allergies Type Severity Reaction Last Updated Verified acetaminophen Allergy Intermediate 04/11/20 Yes doxycycline Allergy Intermediate SWELLING 04/11/20 Yes Physical Exam: PE: Constitutional: Well developed, well nourished, no acute distress, non-toxic appearance. [] HENT: Normocephalic, atraumatic, bilateral external ears normal, oropharynx moist, no oral exudates, nose normal. [] Eyes: PERRLA, EOMI, conjunctiva normal, no discharge. [] Neck: Normal range of motion, no tenderness, supple, no stridor. [] Cardiovascular:Heart rate regular rhythm, no murmur [] Lungs & Thorax: Bilateral breath sounds clear to auscultation there is a palpable lesion on sternum, No erythema, Abdomen: Bowel sounds normal, soft, no tenderness, no masses, no pulsatile masses. [] Skin: Warm, dry, no erythema, no rash. [] Back: No tenderness, no CVA tenderness. [] Extremities: Left knee with full range of motion, there is tenderness to palpation on the left lateral collateral ligament area Neurologic: Alert and oriented X 3, normal motor function, normal sensory function, no focal deficits noted. [] Psychologic: Affect normal, judgement normal, mood normal. [] Current Patient Data: Vital Signs: Vital Signs Date Time Temp Pulse Resp B/P (MAP) Pulse Ox O2 Delivery O2 Flow Rate FiO2 09/08/20 07:58 98.4 100 18 161/112 (128) 98 Room Air 98.4 EKG: EKG: [] Radiology/Procedures: Radiology/Procedures: [][facility] [address] [place], [place] [id number] IMAGING REPORT Signed PATIENT: ARTURO ARANGO ACCOUNT: [id number] : 1980 LOCATION: ER AGE: 39 SEX: F EXAM STATUS: REG ER ORD. PHYSICIAN: BRYNN RANKIN DO REASON: chest pain, tender knot on sternum area PROCEDURE: CT CHEST W/CONTRAST CT THORAX W INDICATION: chest pain, tender knot on sternum area Comparison: Radiograph 08/25/2020. TECHNIQUE: Following the uneventful administration of intravenous contrast, 75 cc Omnipaque 300, axial CT sections were obtained through the lungs and upper abdomen. Multiplanar reconstructions and MIP images were obtained. PQRS compliance statement: One or more of the following individualized dose reduction techniques were utilized for this examination: 1. Automated exposure control 2. Adjustment of the mA and/or kV according to patient size 3. Use of iterative reconstruction technique FINDINGS: Lungs and Airways: No pulmonary mass or consolidation. No abnormality of the central airways. Pleura: The pleural spaces are normal. Heart and Mediastinum: The visualized thyroid is normal in size and attenuation. No axillary or supraclavicular lymphadenopathy. No mediastinal, hilar or retrocrural lymphadenopathy. The heart and pericardium are within normal limits. The great vessels of the thorax are normal. Small hiatal hernia. Abdomen: Limited images through the upper abdomen show no abnormality of the visualized organs. Bones and Soft Tissues: The visualized bones and chest wall soft tissues are within normal limits. IMPRESSION: 1. No mass. No thoracic lymphadenopathy. 2. Small hiatal hernia. Electronically signed by: Venu Batres MD (09/08/2020 10:20 AM) [id number] DICTATED and SIGNED BY: VENU BATRES MD DATE: 09/08/20 [id number] [facility] [address] [place], [place] [id number] IMAGING REPORT Signed PATIENT: ARTURO ARANGO ACCOUNT: [id number] : 1980 LOCATION: ER AGE: 39 SEX: F EXAM STATUS: REG ER ORD. PHYSICIAN: BRYNN RANKIN DO REASON: left knee pain, swelling for 3 days. nki PROCEDURE: KNEE LEFT 3V XR KNEE _3 VIEWS_LT DATE: 09/08/2020 8:19 AM INDICATION: Left knee pain, swelling for 3 days. nki COMPARISON: None. FINDINGS: Bones: There is no evidence of acute fracture or dislocation. Joints: Mild medial compartment degenerative changes. There is no joint effusion. Miscellaneous: None. IMPRESSION: No acute osseous abnormality. Mild degenerative changes. Electronically signed by: Venu Batres MD (09/08/2020 8:40 AM) [id number] DICTATED and SIGNED BY: VENU BATRES MD DATE: 09/08/20 [id number] 0 Course & Med Decision Making: Course & Med Decision Making Pertinent Labs and Imaging studies reviewed. (See chart for details) Patient is a 39-year-old female who presented to ER due to left knee pain, atraumatic, and she feels like there is a knot on the sternum area. CT scan her chest did not show any mass or lymphadenopathy. X-ray her left knee did not show any bony injury, shown mild degenerative change. Dragon Disclaimer: Dragon Disclaimer: This electronic medical record was generated, in whole or in part, using a voice recognition dictation system. Departure Departure Impression: Primary Impression: Degenerative joint disease of left knee Disposition: HOME / SELF CARE / HOMELESS Condition: STABLE Referrals: NO PCP (PCP) Please call your family physician for outpatient evaluation next week. Patient Instructions: Arthritis, Degenerative-Brief, Knee Pain Additional Instructions: Thank you for visiting our Emergency Department. We appreciate you trusting us with your care. If any additional problems come up don't hesitate to return to visit us. Please follow up with your primary care provider so they can plan additional care if needed and know about the problem that you had. If symptoms worsen come back to the Emergency Department. Any concerning symptoms that start such as chest pain, shortness of air, weakness or numbness on one side of the body, running high fevers or any other concerning symptoms return to the ER. Scripts Naproxen Sodium (ANAPROX DS) 550 Mg Tablet 1 TAB PO BID PRN for PAIN for 15 Days, #30 TAB 0 Refills Prov: BRYNN RANKIN DO 09/08/20 Tramadol Hcl (TRAMADOL HCL) 50 Mg Tablet 50 MG PO Q6HRS PRN for PAIN, #20 TAB Prov: BRYNN RANKIN DO 09/08/20 BRYNN RANKIN DO September 08, 2020 08:54
[2020-09-08] MEDS ORDERED: ONDANSETRON PF 4 MG/2 ML VIAL. IVP ONE (09:00)
[2020-09-08] MEDS ORDERED: MORPHINE SULFATE 4 MG/ML VIAL. IV ONE (09:00)
[2020-09-08 09:28] LABS: CALCIUM 8.4 mg/dL (8.5-10.1); CREATININE 0.8 mg/dL (0.6-1.0); GFR 97.1; POTASSIUM 4.3 mmol/L (3.5-5.1)
[2020-09-08 09:34] LABS: ALBUMIN 2.8 g/dL (3.4-5.0); ALBUMIN/GLOBULIN RATIO 0.6 (1.0-1.7); MAGNESIUM 1.8 mg/dL (1.8-2.4); TOTAL BILIRUBIN 0.1 mg/dL (0.2-1.0); TOTAL PROTEIN 7.7 g/dL (6.4-8.2)
[2020-09-08 09:45] LABS: BASO % 1 % (0-3); EOS # 0.4 x10^3/uL (0.0-0.7); EOS % 8 % (0-3); HEMATOCRIT 36.8 % (36.0-47.0); HEMOGLOBIN 12.1 g/dL (12.0-15.5); LYMPH # 1.4 x10^3/uL (1.0-4.8); LYMPH % 27 % (24-48); MEAN CORPUSCULAR HEMOGLOBIN 28 pg (25-35); MEAN CORPUSCULAR HGB CONC 33 g/dL (31-37); MEAN CORPUSCULAR VOLUME 86 fL (79-100); MONO # 0.5 x10^3/uL (0.0-1.1); MONO % 9 % (0-9); NEUT # 2.9 x10^3/uL (1.8-7.7); NEUT % 56 % (31-73); PLATELET COUNT 198 x10^3/uL (140-400); RED CELL DISTRIBUTION WIDTH 14.2 % (11.5-14.5); WHITE BLOOD COUNT 5.3 x10^3/uL (4.0-11.0)
[2020-09-08] MEDS ORDERED: IOHEXOL 300 MG/ML 100ML VIAL. IV ONE (10:00)
[2020-09-08] MEDS ORDERED: CONTRAST GIVEN. MC PRN (10:00)
[2020-09-08 10:07] VITALS: BP 177/98
--- NOTE | 2020-09-08 10:22 | RAD ---
CT THORAX W INDICATION: chest pain, tender knot on sternum area Comparison: Radiograph 08/25/2020. TECHNIQUE: Following the uneventful administration of intravenous contrast, 75 cc Omnipaque 300, axia l CT sections were obtained through the lungs and upper abdomen. Multiplanar reconstructions and MIP images were obtained. PQRS compliance statement: One or more of the following individualized dose reduction techniques were utilized for this examinat ion: 1. Automated exposure control 2. Adjustment of the mA and/or kV according to patient size 3. Use of iterative reconstruction technique FINDINGS: Lungs and Airways: No pulmonary mass or consolidation. No abnormality of the central airways. Pleura: The pleural spaces are normal. Heart and Mediastinum: The visualized thyroid is normal in size and attenuation. No axillary or supra clavicular lymphadenopathy. No mediastinal, hilar or retrocrural lymphadenopathy. The heart and peric ardium are within normal limits. The great vessels of the thorax are normal. Small hiatal hernia. Abdomen: Limited images through the upper abdomen show no abnormality of the visualized organs. Bones and Soft Tissues: The visualized bones and chest wall soft tissues are within normal limits. IMPRESSION: 1. No mass. No thoracic lymphadenopathy. 2. Small hiatal hernia. Electronically signed by: Homero Batres MD (09/08/2020 10:20 AM) [id number]
[2020-09-08] MEDS ORDERED: NAPR-682 PO (10:34)
[2020-09-08] MEDS ORDERED: TRAM50TA PO (10:34)
== END 2020-09-08 11:16 | disposition home or self-care (01) ==
LOC: ER 07:37
DX: M17.12 Unilateral primary osteoarthritis, left knee (principal); R07.89 Other chest pain; K44.9 Diaphragmatic hernia without obstruction or gangrene; E11.9 Type 2 diabetes mellitus without complications; I10 Essential (primary) hypertension; F17.200 Nicotine dependence, unspecified, uncomplicated; Z88.1 Allergy status to other antibiotic agents; Z88.6 Allergy status to analgesic agent
CPT/HCPCS: 36415; 71260; 73562; 80053; 83735; 85025; 96374; 96375; 99285; J2270; J2405; Q9967

== ENCOUNTER 2021-01-18 09:02 | Emergency (ER) | payer OTHER ==
[~2021-01-18] VITALS: Ht 167.6 cm; Wt 122.8 kg
--- NOTE | 2021-01-18 09:24 | PHYS DOC ---
Past Medical History Past Medical History: Diabetes-Type II, Hypertension, Kidney Stone, Other Additional Past Medical Histor: AUTOIMMUNE HEPATITIS Past Surgical History: , Other Additional Past Surgical Histo: KIDNEY STONE REMOVAL Smoking Status: Current Every Day Smoker Alcohol Use: None General Adult EDM: Chief Complaint: CHEST PAIN HPI: HPI: 40-year-old female presents the emergency department complaining of chest pain for approximately 24 hours that is in the left side of her chest, worsens with palpation, feels sharp and squeezing pain. She has never had pain like this before. She notes that she has a brother with a family history of heart disease, but she does not have any personal history of heart disease. The patient denies nausea, vomiting, fever, chills, shortness of breath, abdominal pain, urinary symptoms, cough, recent trauma, or any other complaints. Review of Systems: Review of Systems: ROS is otherwise negative except for what was mentioned in the HPI Heart Score: C/O Chest Pain: Yes HEART Score for Chest Pain: HEART Score for Chest Pain Response (Comments) Value History Slighlty/Non-Suspicious 0 ECG Normal 0 Age < 45 0 Risk Factors >3 Risk Factors or Hx CAD 2 Troponin < Normal Limit 0 Total 2 Family History: Family History: Positive family history of heart disease in brother Allergies: Allergies: Allergies Coded Allergies Type Severity Reaction Last Updated Verified acetaminophen Allergy Intermediate 04/11/20 Yes doxycycline Allergy Intermediate SWELLING 04/11/20 Yes Physical Exam: PE: Constitutional: No acute distress, non-toxic appearance. HENT: Atraumatic, bilateral external ears normal, nose normal. Eyes: Conjunctiva normal, no discharge. Neck: Normal range of motion, supple, no stridor. Cardiovascular: Heart rate regular rhythm. 2+ radial pulses and equal Lungs & Thorax: No respiratory distress, symmetrical expansion. Chest wall: + reproducible chest wall tenderness to palpation, no lesions. Abdomen: Soft, no tenderness Skin: Warm, dry. Extremities: No tenderness, no cyanosis, ROM intact, no edema. Neurologic: Alert and oriented X 3, normal motor function, normal sensory function, no focal deficits noted. GCS 15. Psychologic: Affect normal, judgment normal, mood normal. Current Patient Data: Labs: Laboratory Tests Test 01/18/21 10:20 01/18/21 10:30 01/18/21 10:47 White Blood Count 6.5 x10^3/uL (4.0-11.0) Red Blood Count 4.15 x10^6/uL (3.50-5.40) Hemoglobin 11.4 g/dL (12.0-15.5) Hematocrit 34.4 % (36.0-47.0) Mean Corpuscular Volume 83 fL (79-100) Mean Corpuscular Hemoglobin 27 pg (25-35) Mean Corpuscular Hemoglobin Concent 33 g/dL (31-37) Red Cell Distribution Width 15.2 % (11.5-14.5) Platelet Count 173 x10^3/uL (140-400) Neutrophils (%) (Auto) 56 % (31-73) Lymphocytes (%) (Auto) 31 % (24-48) Monocytes (%) (Auto) 5 % (0-9) Eosinophils (%) (Auto) 7 % (0-3) Basophils (%) (Auto) 1 % (0-3) Neutrophils # (Auto) 3.6 x10^3/uL (1.8-7.7) Lymphocytes # (Auto) 2.0 x10^3/uL (1.0-4.8) Monocytes # (Auto) 0.3 x10^3/uL (0.0-1.1) Eosinophils # (Auto) 0.5 x10^3/uL (0.0-0.7) Basophils # (Auto) 0.1 x10^3/uL (0.0-0.2) Sodium Level 135 mmol/L (136-145) Potassium Level 3.9 mmol/L (3.5-5.1) Chloride Level 101 mmol/L (98-107) Carbon Dioxide Level 25 mmol/L (21-32) Anion Gap 9 (6-14) Blood Urea Nitrogen 12 mg/dL (7-20) Creatinine 0.9 mg/dL (0.6-1.0) Estimated GFR (Cockcroft-Gault) 84.3 Glucose Level 142 mg/dL (70-99) Calcium Level 8.8 mg/dL (8.5-10.1) Troponin I Quantitative < 0.017 ng/mL (0.000-0.055) VS-Tpc-C-Type Natriuretic Peptide 26 pg/mL (0-124) Urine Collection Type Unknown Urine Color Yellow Urine Clarity Clear Urine pH 5.5 (<5.0-8.0) Urine Specific [place] 1.020 (1.000-1.030) Urine Protein Negative mg/dL (NEG-TRACE) Urine Glucose (UA) Negative mg/dL (NEG) Urine Ketones (Stick) Negative mg/dL (NEG) Urine Blood Negative (NEG) Urine Nitrite Negative (NEG) Urine Bilirubin Negative (NEG) Urine Urobilinogen Dipstick 0.2 mg/dL (0.2 mg/dL) Urine Leukocyte Esterase Negative (NEG) Urine RBC 0 /HPF (0-2) Urine WBC Occ /HPF (0-4) Urine Squamous Epithelial Cells Mod /LPF Urine Bacteria Few /HPF (0-FEW) Bedside Urine HCG, Qualitative Hcg negative (Negative) Vital Signs: Vital Signs Date Time Temp Pulse Resp B/P (MAP) Pulse Ox O2 Delivery O2 Flow Rate FiO2 01/18/21 09:05 98.6 97 20 149/91 (110) 98 Room Air 98.6 EKG: EKG: Normal sinus rhythm rate of 93, no ST-T wave changes, no ectopic beats, normal axis, normal TX, QRS, and QTc intervals. Impression: Normal EKG. interpreted by meMaynor D.O. Radiology/Procedures: Radiology/Procedures: XR CHEST 1V History: Chest pain Comparison: 08/25/2020, 03/12/2020 Technique: AP radiograph of the chest. Findings: The lungs are adequately and symmetrically inflated. No airspace consolidation, pleural effusion or pneumothorax. The cardiomediastinal silhouette and pulmonary vasculature are within normal limits. No acute osseous abnormality. Soft tissues are unremarkable. Impression: 1. No acute cardiopulmonary process. Electronically signed by: Raul Zheng MD (01/18/2021 9:53 AM) Course & Med Decision Making: Course & Med Decision Making PERC Rule RESULT SUMMARY: 0 criteria No need for further workup, as <2% chance of PE. If no criteria are positive and clinicians pre-test probability is <15%, PERC Rule criteria are satisfied. INPUTS: Age ?50 > 0 = No HR ?100 > 0 = No O? sat on room air > 0 = No Unilateral leg swelling > 0 = No Hemoptysis > 0 = No Recent surgery or trauma > 0 = No Prior PE or DVT > 0 = No Hormone use > 0 = No Work-up is largely negative, PERC results as above, patient will be discharged home with treatment for musculoskeletal chest pain given heart score less than threshold for admission. My Orders - MAYNOR JONES DO Procedure Category Date Status Time Vital Signs Monitoring ER 01/18/21 Transmitted 09:20 Blood Pressure ER 01/18/21 Transmitted Monitoring 09:20 Cardiac Monitoring ER 01/18/21 Transmitted 09:20 Continuous Pulse Ox ER 01/18/21 Transmitted 09:20 Basic Metabolic Panel LAB 01/18/21 Complete 09:20 Cbc W Autodiff LAB 01/18/21 Complete 09:20 Ua, Cult If Indicated LAB 01/18/21 Complete 09:20 Portable Chest 1v RAD 01/18/21 Resulted 09:20 Nt-Pro Bnp LAB 01/18/21 Complete 09:20 Troponini LAB 01/18/21 Complete 09:20 Troponini LAB 01/18/21 Logged 12:20 Troponini LAB 01/18/21 Logged 15:20 Urine Test CYNTHIA 01/18/21 In Process 09:20 Ketorolac 15mg Vial PHA 01/18/21 Complete (Toradol 15mg Vial) 11:15 Departure Departure Impression: Primary Impression: Chest pain Disposition: HOME / SELF CARE / HOMELESS Referrals: NO PCP (PCP) Patient Instructions: Chest Pain (Nonspecific), [id number]-si-Uewp Additional Instructions: You were seen in the emergency department for chest pain. Your exam and testing did not show any acute abnormality that warranted admission today but does not rule out underlying cardiovascular disease. You need to follow up with your primary doctor and/or cardiology for further evaluation. Return to the Emergency Department immediately, day or night, if you have worsening or continued chest pain, shortness of breath, nausea, sweating during chest pain, trouble breathing, chest pain with exertion (climbing stairs or walking for example), leg swelling or for any other concerns. MAYNOR JONES DO Jan 18, 2021 09:24
--- NOTE | 2021-01-18 09:56 | RAD ---
XR CHEST 1V History: Chest pain Comparison: 08/25/2020, 03/12/2020 Technique: AP radiograph of the chest. Findings: The lungs are adequately and symmetrically inflated. No airspace consolidation, pleural effusion or p neumothorax. The cardiomediastinal silhouette and pulmonary vasculature are within normal limits. No acute osseous abnormality. Soft tissues are unremarkable. Impression: 1. No acute cardiopulmonary process. Electronically signed by: Raul Zheng MD (01/18/2021 9:53 AM) [id number]
[2021-01-18 10:47] LABS: CALCIUM 8.8 mg/dL (8.5-10.1); CREATININE 0.9 mg/dL (0.6-1.0); GFR 84.3; POTASSIUM 3.9 mmol/L (3.5-5.1)
[2021-01-18 10:54] LABS: BILIRUBIN,URINE NEGATIVE (NEG); CLARITY,URINE CLEAR; COLOR,URINE YELLOW; NITRITE,URINE NEGATIVE (NEG); PH,URINE 5.5 (<5.0-8.0); PROTEIN,URINE NEGATIVE (NEG-TRACE); UROBILINOGEN,URINE 0.2 mg/dL (0.2 mg/dL)
[2021-01-18 11:00] LABS: BASO # 0.1 x10^3/uL (0.0-0.2); BASO % 1 % (0-3); EOS # 0.5 x10^3/uL (0.0-0.7); EOS % 7 % (0-3); HEMATOCRIT 34.4 % (36.0-47.0); HEMOGLOBIN 11.4 g/dL (12.0-15.5); LYMPH % 31 % (24-48); MEAN CORPUSCULAR HEMOGLOBIN 27 pg (25-35); MEAN CORPUSCULAR HGB CONC 33 g/dL (31-37); MEAN CORPUSCULAR VOLUME 83 fL (79-100); MONO # 0.3 x10^3/uL (0.0-1.1); MONO % 5 % (0-9); NEUT # 3.6 x10^3/uL (1.8-7.7); NEUT % 56 % (31-73); PLATELET COUNT 173 x10^3/uL (140-400); RED BLOOD COUNT 4.15 x10^6/uL (3.50-5.40); RED CELL DISTRIBUTION WIDTH 15.2 % (11.5-14.5); WHITE BLOOD COUNT 6.5 x10^3/uL (4.0-11.0)
[2021-01-18] MEDS ORDERED: KETOROLAC 15 MG/ML VIAL. IM ONE (11:15)
[2021-01-18 11:19] VITALS: BP 142/93
[2021-01-18 11:31] LABS: BACTERIA,URINE FEW /HPF (0-FEW); RBC,URINE 0 /HPF (0-2); WBC,URINE OCC /HPF (0-4)
== END 2021-01-18 11:57 | disposition home or self-care (01) ==
LOC: ER 09:02
DX: R07.89 Other chest pain (principal); E11.9 Type 2 diabetes mellitus without complications; I10 Essential (primary) hypertension; F17.200 Nicotine dependence, unspecified, uncomplicated; Z87.442 Personal history of urinary calculi; Z88.1 Allergy status to other antibiotic agents; Z88.8 Allergy status to other drugs, medicaments and biological substances
CPT/HCPCS: 36415; 71045; 80048; 81001; 81025; 83880; 84484; 85025; 96372; 99284; J1885

== ENCOUNTER 2021-03-11 23:34 | Emergency (ER) | payer OTHER ==
[~2021-03-11] VITALS: Ht 170.2 cm; Wt 100.0 kg
--- NOTE | 2021-03-11 23:45 | PHYS DOC ---
Past Medical History Past Medical History: Diabetes-Type II, Hypertension, Kidney Stone, Other Additional Past Medical Histor: AUTOIMMUNE HEPATITIS Past Surgical History: , Other Additional Past Surgical Histo: KIDNEY STONE REMOVAL Smoking Status: Current Every Day Smoker Alcohol Use: None General Adult EDM: Chief Complaint: CHEST PAIN HPI: HPI: Patient is a 40-year-old female presenting via EMS for chest pain. Reports chest pain started approximately an hour prior to arrival when she was notified that her mother was diagnosed with breast cancer. Patient reports she was overwhelmed, hyperventilated and almost passed out. Reports she has had chest pain and that at times it is hard to breathe. Ongoing symptoms prompted family members to call EMS for transport to our facility. On arrival, patient was found to be tachypneic and hyperventilating but otherwise hemodynamically stable. Patient reports she took 81 mg aspirin prior to EMS transport to our facility. On arrival, patient is tearful and continues to complain of shortness of breath and chest pain that is diffuse and nonfocal in nature and does not radiate. She has no prior history of cardiac diagnoses but does admit she is an insulin-dependent type 2 diabetic, takes medication for blood pressure and has autoimmune hepatitis. She has been at baseline health recently with no major changes in health or medications. She admits to tobacco use but denies any alcohol or illicit drug use Review of Systems: Review of Systems: Fourteen body systems of review of systems have been reviewed. See HPI for pertinent positives and negative responses, other mensah all other systems are negative, non-pertinent or non-contributory Heart Score: C/O Chest Pain: Yes HEART Score for Chest Pain: HEART Score for Chest Pain Response (Comments) Value History Slighlty/Non-Suspicious 0 ECG Normal 0 Age < 45 0 Risk Factors 1 or 2 Risk Factors 1 Troponin < Normal Limit 0 Total 1 Risk Factors: Risk Factors: DM, Current or recent (<one month) smoker, HTN, HLP, family history of CAD, obesity. Risk Scores: Score 0 - 3: 2.5% MACE over next 6 weeks - Discharge Home Score 4 - 6: 20.3% MACE over next 6 weeks - Admit for Clinical Observation Score 7 - 10: 72.7% MACE over next 6 weeks - Early Invasive Strategies Allergies: Allergies: Allergies Coded Allergies Type Severity Reaction Last Updated Verified acetaminophen Allergy Intermediate 04/11/20 Yes doxycycline Allergy Intermediate SWELLING 04/11/20 Yes Physical Exam: PE: Constitutional: Age-appropriate, obese, nontoxic in appearance, tearful HENT: Normocephalic, atraumatic, bilateral external ears normal, oropharynx moist, no oral exudates, nose normal. Eyes: PERRLA, EOMI, conjunctiva normal, no discharge. Neck: Normal range of motion, no tenderness, supple, no stridor. Cardiovascular: Heart rate regular, sinus rhythm, no murmurs rubs or gallops Lungs & Thorax: Tachypneic and hyperventilating but no obvious respiratory distress, no accessory muscle use, Abdomen: Bowel sounds normal, soft, no tenderness, no masses, no pulsatile masses. Nonsurgical abdomen, no peritoneal signs Skin: Warm, dry, no erythema, no rash. Back: No tenderness, no CVA tenderness. Extremities: No tenderness, no cyanosis, no clubbing, ROM intact, no edema. Neurologic: Alert and oriented X 3, grossly normal motor & sensory function, no focal deficits noted. Psychologic: Tearful affect, anxious mood Current Patient Data: Labs: Laboratory Tests Test 03/12/21 01:15 03/12/21 02:05 Bedside Urine HCG, Qualitative Hcg negative White Blood Count 6.7 x10^3/uL Red Blood Count 4.12 x10^6/uL Hemoglobin 11.1 g/dL Hematocrit 33.1 % Mean Corpuscular Volume 81 fL Mean Corpuscular Hemoglobin 27 pg Mean Corpuscular Hemoglobin Concent 34 g/dL Red Cell Distribution Width 14.8 % Platelet Count 189 x10^3/uL Neutrophils (%) (Auto) 60 % Lymphocytes (%) (Auto) 19 % Monocytes (%) (Auto) 9 % Eosinophils (%) (Auto) 10 % Basophils (%) (Auto) 1 % Neutrophils # (Auto) 4.0 x10^3/uL Lymphocytes # (Auto) 1.3 x10^3/uL Monocytes # (Auto) 0.6 x10^3/uL Eosinophils # (Auto) 0.7 x10^3/uL Basophils # (Auto) 0.1 x10^3/uL Sodium Level 134 mmol/L Potassium Level 4.6 mmol/L Chloride Level 101 mmol/L Carbon Dioxide Level 27 mmol/L Anion Gap 6 Blood Urea Nitrogen 13 mg/dL Creatinine 1.1 mg/dL Estimated GFR (Cockcroft-Gault) 66.9 BUN/Creatinine Ratio 12 Glucose Level 331 mg/dL Calcium Level 8.0 mg/dL Total Bilirubin 0.1 mg/dL Aspartate Amino Transf (AST/SGOT) 14 U/L Alanine Aminotransferase (ALT/SGPT) 17 U/L Alkaline Phosphatase 107 U/L Troponin I High Sensitivity < 4 ng/L SD-Gob-V-Type Natriuretic Peptide 15 pg/mL Total Protein 8.0 g/dL Albumin 2.4 g/dL Albumin/Globulin Ratio 0.4 Current Medications Medications (Trade) Dose Ordered Sig/Perla Route PRN Reason Start Time Stop Time Status Last Admin Dose Admin Aspirin (Aspirin Chewable) 162 mg 1X ONCE PO 03/12/21 00:00 03/12/21 00:01 DC 03/12/21 00:35 Lorazepam (Ativan) 0.5 mg 1X ONCE PO 03/12/21 01:30 03/12/21 01:31 DC 03/12/21 01:11 EKG: EKG: EKG interpreted by myself at 2347 hrs. as sinus rhythm at 88 bpm, unremarkable intervals, no axis deviation, no obvious ischemic findings, no STEMI Radiology/Procedures: Radiology/Procedures: XR CHEST 1V Clinical Indication: Reason: CHEST PAIN / Comparison: AP chest January 18, 2021. Findings: The cardiomediastinal silhouette is normal. Lungs are clear. There is no pneumothorax. No pleural effusion is appreciated. No acute bone abnormality. IMPRESSION: No acute cardiopulmonary process. Electronically signed by: Santhosh Callahan MD (03/12/2021 12:07 AM) [facility] Course & Med Decision Making: Course & Med Decision Making ABCs unremarkable. I disclosed entirety of ER findings and discussed most likely diagnosis of atypical chest pain likely due to recent stress of being notified that her mother has cancer. Other diagnoses were discussed with patient such as ACS, pulmonary embolism and other potentially life-threatening diagnoses but all deemed less likely causes of patient's presentation. Patient symptoms and anxiety improved with administered Ativan. Plan of care discussed at length with need for close outpatient follow-up to review today's ER visit stressed. Strict return precautions were also discussed at length with good understanding verbalized by patient. Patient voiced understanding and agreement with the plan. Patient knows to come back for repeat evaluation if concerning signs or symptoms present prior to outpatient follow-up. Hemodynamically stable, ambulatory and well-appearing at time of disposition. Dragon Disclaimer: Dragon Disclaimer: This electronic medical record was generated, in whole or in part, using a voice recognition dictation system. Departure Departure Impression: Primary Impression: Chest pain Disposition: HOME / SELF CARE / HOMELESS Condition: STABLE Referrals: BOBBY JIMENES JR, MD (PCP) Additional Instructions: You were seen for chest pain. Your workup did not show any acute abnormalities today, but does not indicate that you do not have underlying cardiovascular disease. As disclosed, cause of your symptoms were likely stress related due to the knees you received regarding your mother this evening. With that said, you do need to follow up with your primary doctor and potentially a coat agent for further evaluation and treatment. You should return to the ED if you develop worsening chest pain, shortness of breath, fever, abnormal sweating, leg swelling, or any other new or concerning symptoms. QUINTIN HUFFMAN DO Mar 11, 2021 23:45
[2021-03-12] MEDS ORDERED: ASPIRIN CHEWABLE 81 MG TABLET. PO ONE
--- NOTE | 2021-03-12 00:09 | RAD ---
XR CHEST 1V Clinical Indication: Reason: CHEST PAIN / Comparison: AP chest January 18, 2021. Findings: The cardiomediastinal silhouette is normal. Lungs are clear. There is no pneumothorax. No pleural eff usion is appreciated. No acute bone abnormality. IMPRESSION: No acute cardiopulmonary process. Electronically signed by: Santhosh Callahan MD (03/12/2021 12:07 AM) [facility]
[2021-03-12] MEDS ORDERED: LORazepam 0.5 MG TABLET PO ONE (01:30)
--- NOTE | 2021-03-12 01:34 | EKG ---
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
[2021-03-12 02:20] LABS: BASO # 0.1 x10^3/uL (0.0-0.2); BASO % 1 % (0-3); EOS # 0.7 x10^3/uL (0.0-0.7); EOS % 10 % (0-3); HEMATOCRIT 33.1 % (36.0-47.0); HEMOGLOBIN 11.1 g/dL (12.0-15.5); LYMPH # 1.3 x10^3/uL (1.0-4.8); LYMPH % 19 % (24-48); MEAN CORPUSCULAR HEMOGLOBIN 27 pg (25-35); MEAN CORPUSCULAR HGB CONC 34 g/dL (31-37); MEAN CORPUSCULAR VOLUME 81 fL (79-100); MONO # 0.6 x10^3/uL (0.0-1.1); MONO % 9 % (0-9); NEUT % 60 % (31-73); PLATELET COUNT 189 x10^3/uL (140-400); RED BLOOD COUNT 4.12 x10^6/uL (3.50-5.40); RED CELL DISTRIBUTION WIDTH 14.8 % (11.5-14.5); WHITE BLOOD COUNT 6.7 x10^3/uL (4.0-11.0)
[2021-03-12 02:31] LABS: CREATININE 1.1 mg/dL (0.6-1.0); GFR 66.9; POTASSIUM 4.6 mmol/L (3.5-5.1)
[2021-03-12 02:37] LABS: ALBUMIN 2.4 g/dL (3.4-5.0); ALBUMIN/GLOBULIN RATIO 0.4 (1.0-1.7); TOTAL BILIRUBIN 0.1 mg/dL (0.2-1.0)
[2021-03-12 04:20] VITALS: BP 143/82
== END 2021-03-12 04:27 | disposition home or self-care (01) ==
LOC: ER 23:34
DX: R07.89 Other chest pain (principal); R06.02 Shortness of breath; E11.9 Type 2 diabetes mellitus without complications; I10 Essential (primary) hypertension; Z72.0 Tobacco use
CPT/HCPCS: 36415; 71045; 80053; 81025; 83880; 84484; 85025; 93005; 99285-25

== ENCOUNTER 2021-06-17 15:37 | Emergency (ER) | payer OTHER ==
[~2021-06-17] VITALS: Ht 165.1 cm; Wt 113.6 kg
[2021-06-17] MEDS ORDERED: MORPHINE SULFATE 4 MG/ML INJ. IVP ONE (16:45)
[2021-06-17 16:50] LABS: BILIRUBIN,URINE NEGATIVE (NEG); CLARITY,URINE CLEAR; COLOR,URINE YELLOW; NITRITE,URINE NEGATIVE (NEG); PROTEIN,URINE NEGATIVE (NEG-TRACE); UROBILINOGEN,URINE 0.2 mg/dL (0.2 mg/dL)
[2021-06-17 17:24] LABS: BACTERIA,URINE FEW /HPF (0-FEW); RBC,URINE RARE /HPF (0-2)
[2021-06-17 17:51] LABS: U PREG PATIENT NEGATIVE (NEG)
--- NOTE | 2021-06-17 18:21 | RAD ---
INDICATION: Reason: Chest pain / Spl. Instructions: / History: COMPARISON: March 2021 FINDINGS: Single view of chest obtained. Relative haziness at lung bases without definite consolidation elsewhere in the lungs. Cardiomediastinal silhouette is unremarkable. No gross osseous destructive lesion. IMPRESSION: * Relative opacity at the lung bases which could be from overlapping soft tissue structures and atel ectasis but mild infiltrate is not excluded. No definite consolidation elsewhere in the lungs. Electronically signed by: Edmund Del Rio MD (06/17/2021 6:18 PM) [id number]
--- NOTE | 2021-06-17 19:38 | PHYS DOC ---
Past Medical History Past Medical History: Diabetes-Type II, Hypertension, Kidney Stone, Other Additional Past Medical Histor: AUTOIMMUNE HEPATITIS Past Surgical History: , Other Additional Past Surgical Histo: KIDNEY STONE REMOVAL Smoking Status: Current Every Day Smoker Alcohol Use: None General Adult EDM: Chief Complaint: FLANK PAIN HPI: HPI: Patient is a 40-year-old female presents to the emergency department complaining of slow onset of pain that starts near her anterior right shoulder and radiates down her right side thorax and ribs around to her mid upper right back that started yesterday at approximately 10 AM. Patient denies taking any pain medi cations or trying any nonpharmacological pain relief methods, patient reports her pain is slowly becoming worse to a 9 out of 10 pain that she describes as a sharp stabbing pain that is similar to the last time she had a kidney stone. Patient does report nausea without vomiting, denies shortness of breath or anterior chest discomfort. Denies diaphoretic episodes, chest or nasal c ongestion, denies recent fever or chills, denies abdominal pains, constipation or diarrhea. Patient denies increased urinary frequency, urinary pressure, hematuria or other dysuria. Patient denies other physical complaints or physical concerns. Patient reports a past surgical history of a 16 years ago, kidney stone removal 10 years ago. Patient reports a past medical history of hypertension, states she takes hydrochlorothiazide for blood pressure, prednisone for liver disease, last menstrual cycle ended 1 week ago with normal duration of flow. Review of Systems: Review of Systems: 14 body systems of review of systems have been reviewed. See HPI for pertinent positives and negative responses, otherwise all other systems are negative, nonpertinent or noncontributory. Constitutional: Negative except as outlined in HPI above. Skin: Negative except as outlined in HPI above. Eyes: Negative except as outlined in HPI above. HENT: Negative except as outlined in HPI above. Respiratory: Negative except as outlined in HPI above. Cardiovascular: Negative except as outlined in HPI above. GI: Negative except as outlined in HPI above. : Negative except as outlined in HPI above. Musculoskeletal: Negative except as outlined in HPI above. Integument: Negative except as outlined in HPI above. Neurologic: Negative except as outlined in HPI above. Endocrine: Negative except as outlined in HPI above. Lymphatic: Negative except as outlined in HPI above. Psychiatric: Negative except as outlined in HPI above. Heart Score: C/O Chest Pain: Yes HEART Score for Chest Pain: HEART Score for Chest Pain Response (Comments) Value History Slighlty/Non-Suspicious 0 ECG Normal 0 Age < 45 0 Risk Factors >3 Risk Factors or Hx CAD 2 Troponin < Normal Limit 0 Total 2 Risk Factors: Risk Factors: DM, Current or recent (<one month) smoker, HTN, HLP, family history of CAD, obesity. Risk Scores: Score 0 - 3: 2.5% MACE over next 6 weeks - Discharge Home Score 4 - 6: 20.3% MACE over next 6 weeks - Admit for Clinical Observation Score 7 - 10: 72.7% MACE over next 6 weeks - Early Invasive Strategies Current Medications: Current Medications Medications (Trade) Dose Ordered Sig/Perla Start Time Stop Time Status Last Admin Dose Admin Morphine Sulfate (Morphine Sulfate) 4 mg 1X ONCE 06/17/21 16:45 06/17/21 16:46 DC Allergies: Allergies: Allergies Coded Allergies Type Severity Reaction Last Updated Verified acetaminophen Allergy Intermediate 04/11/20 Yes doxycycline Allergy Intermediate SWELLING 04/11/20 Yes Physical Exam: PE: Constitutional: Well developed, well nourished, no acute distress, 40-year-old female appears uncomfortable however is nontoxic in appearance. HENT: Normocephalic, atraumatic. Eyes: Conjunctiva normal, no discharge. Neck: Normal range of motion, no stridor. Cardiovascular: No cyanosis appreciated, distal cap refill less than 2 seconds. Lungs & Thorax: Patient is in no respiratory distress, no audible adventitious lung sounds appreciated. Lung sounds clear to auscultation all lung drake, normal work of breathing. Abdomen: Abdomen round, soft, patient morbidly obese, no masses or megaly appreciated for palpation, pain to palpation right upper quadrant, no rebound tenderness, no McBurney's point tenderness, no other abnormalities appreciated of the abdomen. Skin: Warm, dry, no erythema, no rash. Back: No deformities appreciated, positive right-sided CVA tenderness to palpation, no left-sided CVA TTP. Extremities: No tenderness, no cyanosis, no clubbing, ROM intact, no edema. Neurologic: Alert and oriented X 3, normal motor function, normal sensory function, no focal deficits noted. Psychologic: Affect normal, judgement normal, mood normal. Current Patient Data: Labs: Current Medications Medications (Trade) Dose Ordered Sig/Perla Route PRN Reason Start Time Stop Time Status Last Admin Dose Admin Morphine Sulfate (Morphine Sulfate) 4 mg 1X ONCE IVP 06/17/21 16:45 06/17/21 16:46 DC 06/17/21 19:36 Ondansetron HCl (Zofran) 4 mg 1X ONCE IVP 06/17/21 19:45 06/17/21 19:46 DC 06/17/21 19:47 Ondansetron HCl (Zofran) 4 mg STK-MED ONCE .ROUTE 06/17/21 19:42 06/17/21 19:42 DC Iohexol (Omnipaque 300 Mg/ml) 75 ml 1X ONCE IV 06/17/21 20:15 06/17/21 20:16 DC 06/17/21 20:35 Info (CONTRAST GIVEN -- Rx MONITORING) 1 each PRN DAILY PRN MC SEE COMMENTS 06/17/21 20:15 06/18/21 04:41 DC Hydromorphone HCl (Dilaudid) 1 mg 1X ONCE IVP 06/17/21 20:15 06/17/21 20:16 DC 06/17/21 20:19 Hydromorphone HCl (Dilaudid) 2 mg STK-MED ONCE .ROUTE 06/17/21 20:07 06/17/21 20:07 DC Hydralazine HCl (Apresoline Inj) 10 mg 1X ONCE IVP 06/17/21 20:30 06/17/21 20:31 DC 06/17/21 20:40 Metoclopramide HCl (Reglan Vial) 10 mg 1X ONCE IVP 06/17/21 20:30 06/17/21 20:32 DC 06/17/21 20:43 Sodium Chloride 500 ml @ 500 mls/hr 1X ONCE IV 06/17/21 20:30 06/17/21 21:29 DC 06/17/21 20:48 Laboratory Tests Test 06/17/21 16:10 06/17/21 19:30 Urine Collection Type Void Urine Color Yellow Urine Clarity Clear Urine pH 6.0 Urine Specific [place] 1.020 Urine Protein Negative mg/dL Urine Glucose (UA) >=1000 mg/dL Urine Ketones (Stick) Negative mg/dL Urine Blood Small Urine Nitrite Negative Urine Bilirubin Negative Urine Urobilinogen Dipstick 0.2 mg/dL Urine Leukocyte Esterase Negative Urine RBC Rare /HPF Urine WBC 1-4 /HPF Urine Squamous Epithelial Cells Many /LPF Urine Bacteria Few /HPF Urine Test Negative White Blood Count 5.8 x10^3/uL Red Blood Count 4.16 x10^6/uL Hemoglobin 10.7 g/dL Hematocrit 33.6 % Mean Corpuscular Volume 81 fL Mean Corpuscular Hemoglobin 26 pg Mean Corpuscular Hemoglobin Concent 32 g/dL Red Cell Distribution Width 16.4 % Platelet Count 205 x10^3/uL Neutrophils (%) (Auto) 46 % Lymphocytes (%) (Auto) 37 % Monocytes (%) (Auto) 8 % Eosinophils (%) (Auto) 8 % Basophils (%) (Auto) 1 % Neutrophils # (Auto) 2.7 x10^3/uL Lymphocytes # (Auto) 2.2 x10^3/uL Monocytes # (Auto) 0.5 x10^3/uL Eosinophils # (Auto) 0.5 x10^3/uL Basophils # (Auto) 0.0 x10^3/uL Current Medications Medications (Trade) Dose Ordered Sig/Perla Route PRN Reason Start Time Stop Time Status Last Admin Dose Admin Morphine Sulfate (Morphine Sulfate) 4 mg 1X ONCE IVP 06/17/21 16:45 06/17/21 16:46 DC 06/17/21 19:36 Ondansetron HCl (Zofran) 4 mg 1X ONCE IVP 06/17/21 19:45 06/17/21 19:46 Ondansetron HCl (Zofran) 4 mg STK-MED ONCE .ROUTE 06/17/21 19:42 06/17/21 19:42 DC Laboratory Tests Test 06/17/21 16:10 Urine Collection Type Void Urine Color Yellow Urine Clarity Clear Urine pH 6.0 (<5.0-8.0) Urine Specific [place] 1.020 (1.000-1.030) Urine Protein Negative mg/dL (NEG-TRACE) Urine Glucose (UA) >=1000 mg/dL (NEG) Urine Ketones (Stick) Negative mg/dL (NEG) Urine Blood Small (NEG) Urine Nitrite Negative (NEG) Urine Bilirubin Negative (NEG) Urine Urobilinogen Dipstick 0.2 mg/dL (0.2 mg/dL) Urine Leukocyte Esterase Negative (NEG) Urine RBC Rare /HPF (0-2) Urine WBC 1-4 /HPF (0-4) Urine Squamous Epithelial Cells Many /LPF Urine Bacteria Few /HPF (0-FEW) Urine Test Negative (NEG) Vital Signs: Vital Signs Date Time Temp Pulse Resp B/P (MAP) Pulse Ox O2 Delivery O2 Flow Rate FiO2 06/17/21 16:10 99.0 114 18 180/114 (136) 100 Room Air 99.0 EKG: EKG: EKG performed at 1641 shows a normal sinus rhythm without other ectopy, heart rate 94 bpm, ME interval 0.154, QTc interval 0.460, no acute STEMI, no ACS, no acute ischemia appreciated, EKG interpreted by ED attending physician Dr. Harvey. Radiology/Procedures: Radiology/Procedures: REASON: Chest pain PROCEDURE: CHEST AP ONLY INDICATION: Reason: Chest pain / Spl. Instructions: / History: COMPARISON: March 2021 FINDINGS: Single view of chest obtained. Relative haziness at lung bases without definite consolidation elsewhere in the lungs. Cardiomediastinal silhouette is unremarkable. No gross osseous destructive lesion. IMPRESSION: * Relative opacity at the lung bases which could be from overlapping soft tissu e structures and atelectasis but mild infiltrate is not excluded. No definite consolidation elsewhere in the lungs. Electronically signed by: Edmund Del Rio MD (06/17/2021 6:18 PM) [id number] REASON: Right upper quadrant pain radiating to right CVA, hematuria PROCEDURE: CT ABD PELV W/ IV CONTRST ONLY CT ABDOMEN+PELVIS W History: Right upper quadrant pain radiating to right costovertebral angle. Comparison: CT chest abdomen and pelvis 06/02/2020. Technique: CT of the abdomen and pelvis with intravenous contrast. Findings: The lung bases are clear. The liver, gallbladder, pancreas and adrenal glands are unremarkable. There are punctate calcifications in the spleen consistent with granulomatous disease. Multiple right punctate nephroliths are redemonstrated. There is a large right ureteropelvic junction stone measuring 1.5 cm diameter by 1.9 cm length, similar to comparison exam. No significant hydronephrosis. Multiple large and small left renal stones. No left ureterolithiasis. The bladder is decompressed. The uterus is normal. There is redemonstration of a 4.1 cm peripherally calcified left adnexal round cystic lesion with attenuation greater than that of fluid. This is enlarged from comparison with measuring approximately 3 cm diameter. The stomach and small bowel are unremarkable. Normal appendix. Unremarkable colon. No free intraperitoneal air or fluid. No adenopathy. Osseous structures and soft tissues are unremarkable. Vasculature is within normal limits. Impression: 1. Large right ureteropelvic junction stone measuring 1.5 x 1.9 cm, similar to comparison, however possibly now symptomatic. No significant hydronephrosis or perinephric stranding. 2. Bilateral nephrolithiasis. 3. Left adnexal increased attenuation cystic lesion measuring 4.1 cm diameter with peripheral calcifications, enlarged from comparison. Recommend pelvic ultrasound for further evaluation. ------ Exposure: One or more of the following individualized dose reduction techniques were utilized for this examination: 1. Automated exposure control 2. Adjustment of the mA and/or kV according to patient size 3. Use of iterative reconstruction technique. Electronically signed by: Raul Zheng MD (06/17/2021 9:06 PM) [facility] STATUS: REG ER ORD. PHYSICIAN: AAMIR WILLAMS APRN REASON: Right upper quadrant pain, gallbladder study PROCEDURE: ABDOMEN LTD INDICATION: Reason: Right upper quadrant pain, gallbladder study / Spl. Instructions: / History: COMPARISON: CT from same day TECHNIQUE: Grayscale and color ultrasound images obtained through the abdomen. FINDINGS: Pancreas: Limited visualization secondary to overlying bowel gas Liver: Echogenic. Prominent size. Portions are not well seen secondary to poor beam penetration through the echogenic liver. Gallbladder: No definite stones. Common Bile Duct: Not dilated. Right Kidney: No hydronephrosis. The patient's known right extra renal pelvis s tone is better seen on recent CT. Aorta/IVC: Inferior vena cava segmentally seen of the liver. Incomplete visualization of aorta. IMPRESSION: * No definite gallstones identified. * Echogenic liver. Nonspecific but can be seen with fatty infiltration. Electronically signed by: Edmund Del Rio MD (06/17/2021 9:24 PM) [id number] Course & Med Decision Making: Course & Med Decision Making Pertinent Labs and Imaging studies reviewed. (See chart for details) 40-year-old female, vital signs reviewed, presents to the emergency department complaining of pain that radiates from her right anterior shoulder down her lateral right ribs to her right upper back since yesterday, physical examination concerning for gallbladder versus kidney stone versus other abdominal abnormality, low likelihood of pulmonary emboli per PERC rule. Will order cardiac monitoring, pulse oximetry, NIBP, twelve-lead EKG, chest x-ray, CBC, CMP, NT proBNP, high-sensitivity troponin I, urinalysis assay, lipase, urine test, saline lock, IV morphine, IV Zofran, abdominal ultrasound to rule out gallbladder or gallbladder study. Patient is not per urine test, patient does have slight hematuria, greater than 1000 glucosuria, will order acetone level, CT abdomen pelvis with IV contrast. Patient reports she has a history of type 2 diabetes, was taken off all of her diabetes medications because her hemoglobin A1c was under control, reports she has not taken any diabetic medications for over [address] reveals 19 mm x 15 mm kidney stone on right ureter. Discussed findings with patient, recommended admission to the hospital for examination and care by inpatient hospitalist and urology specialty. Patient has refused this stating she will not be admitted and wishes to leave AGAINST MEDICAL ADVICE. Patient reports her pain has resolved and she feels much better now, states that she will follow-up with her own urologist to get her stones taken care of. The patient has decided to leave our facility against medical advice. I have assessed patient's ability to make informed decision and feel the patient has the capacity to comprehend information regarding the current medical condition and appreciates the impact of the disease or condition and the consequences of various options for treatment, including foregoing treatment. The patient possesses the ability to evaluate all treatment options, comparing the risks and benefits of each option, communicate his or her choice in a consistent manner over time, and is able to make rational choices. I explained to the patient further testing, treatment, and evaluation I would like to perform in the emergency department visit as well as any possible alternatives that can be accomplished in a timely manner. I have outlined the possible risks of foregoing any or all of these interventions and the patient understands and ackn owledges that the decision to leave may result in undesirable consequences such as , permanent disability, and/or loss of current lifestyle. Even though leaving AMA is not ideal, I have instructed the patient to follow any discharge instructions given, take any medications prescribed, and resume care as soon as possible with another provider. This conversation was witnessed by another member of the emergency department staff and we clearly communicated the patient is welcome to return anytime to continue care at our facility. Dragon Disclaimer: Dragon Disclaimer: This electronic medical record was generated, in whole or in part, using a voice recognition dictation system. Departure Departure Impression: Primary Impression: Left against medical advice Additional Impression: Kidney stone Disposition: HOME / SELF CARE / HOMELESS Condition: GOOD Referrals: BOBBY JIMENES JR, MD (PCP) QUINTIN COPELAND DO Patient Instructions: Kidney Stones Additional Instructions: You were seen in the emergency department for pain on your right flank area. The CT scan revealed a very large kidney stone on the right kidney that would require intervention by a urologist. I have recommended admission to the hospital for pain control and close follow-up by a urology specialist. You have refused this recommendation and chose to leave the emergency department AGAINST MEDICAL ADVICE. I have given the information for urology specialist Dr. Copeland on these discharge instructions, please call tomorrow for an appointment to be seen for further evaluation of your kidney stone. I fear that if you leave AGAINST MEDICAL ADVICE your symptoms may worsen, you may suffer from a permanent life altering disability, you may even from worsening symptoms and deterioration of health. Please return to the emergency department for worsening symptoms or other concerns. Patient does not wish to proceed with medical care recommended by Vin SAENZ NP-C. Patient given information related to possible complications, up to and including , which could occur as a result of leaving the hospital at this time. Patient verbalizes understanding of risks involved due to leaving against medical advice. Patient has signed AMA form. AAMIR WILLAMS APRN Jun 17, 2021 19:38
[2021-06-17] MEDS ORDERED: ONDANSETRON PF 4 MG/2 ML VIAL. ONE (19:42)
[2021-06-17 19:44] LABS: BASO % 1 % (0-3); EOS # 0.5 x10^3/uL (0.0-0.7); EOS % 8 % (0-3); HEMATOCRIT 33.6 % (36.0-47.0); HEMOGLOBIN 10.7 g/dL (12.0-15.5); LYMPH # 2.2 x10^3/uL (1.0-4.8); LYMPH % 37 % (24-48); MEAN CORPUSCULAR HEMOGLOBIN 26 pg (25-35); MEAN CORPUSCULAR HGB CONC 32 g/dL (31-37); MEAN CORPUSCULAR VOLUME 81 fL (79-100); MONO # 0.5 x10^3/uL (0.0-1.1); MONO % 8 % (0-9); NEUT # 2.7 x10^3/uL (1.8-7.7); NEUT % 46 % (31-73); PLATELET COUNT 205 x10^3/uL (140-400); RED BLOOD COUNT 4.16 x10^6/uL (3.50-5.40); RED CELL DISTRIBUTION WIDTH 16.4 % (11.5-14.5); WHITE BLOOD COUNT 5.8 x10^3/uL (4.0-11.0)
[2021-06-17] MEDS ORDERED: ONDANSETRON PF 4 MG/2 ML VIAL. IVP ONE (19:45)
[2021-06-17 20:02] LABS: CALCIUM 8.2 mg/dL (8.5-10.1); CREATININE 0.7 mg/dL (0.6-1.0); GFR 112.7; POTASSIUM 3.9 mmol/L (3.5-5.1)
[2021-06-17] MEDS ORDERED: HYDROmorphone 2 MG/ML INJ. ONE (20:07)
[2021-06-17 20:08] LABS: ALBUMIN 2.3 g/dL (3.4-5.0); ALBUMIN/GLOBULIN RATIO 0.4 (1.0-1.7); TOTAL BILIRUBIN 0.2 mg/dL (0.2-1.0); TOTAL PROTEIN 7.6 g/dL (6.4-8.2)
[2021-06-17] MEDS ORDERED: CONTRAST GIVEN. MC PRN (20:15)
[2021-06-17] MEDS ORDERED: HYDROmorphone 2 MG/ML INJ. IVP ONE (20:15)
[2021-06-17] MEDS ORDERED: IOHEXOL 300 MG/ML 100ML VIAL. IV ONE (20:15)
[2021-06-17] MEDS ORDERED: hydrALAZINE 20 MG/ML VIAL. IVP ONE (20:30)
[2021-06-17] MEDS ORDERED: IV NORMAL SALINE 500ML BAG 500 ML IV ONE (20:30)
[2021-06-17] MEDS ORDERED: METOCLOPRAMIDE HCL 10 MG/2 ML VIAL. IVP ONE (20:30)
[2021-06-17 20:50] VITALS: BP 143/90
--- NOTE | 2021-06-17 21:09 | RAD ---
CT ABDOMEN+PELVIS W History: Right upper quadrant pain radiating to right costovertebral angle. Comparison: CT chest abdomen and pelvis 06/02/2020. Technique: CT of the abdomen and pelvis with intravenous contrast. Findings: The lung bases are clear. The liver, gallbladder, pancreas and adrenal glands are unremarkable. There are punctate calcifications in the spleen consistent with granulomatous disease. Multiple right [place] nephroliths are redemonstrated. There is a large right ureteropelvic junction stone measuring 1. 5 cm diameter by 1.9 cm length, similar to comparison exam. No significant hydronephrosis. Multiple l arge and small left renal stones. No left ureterolithiasis. The bladder is decompressed. The uterus i s normal. There is redemonstration of a 4.1 cm peripherally calcified left adnexal round cystic lesio n with attenuation greater than that of fluid. This is enlarged from comparison with measuring approx imately 3 cm diameter. The stomach and small bowel are unremarkable. Normal appendix. Unremarkable colon. No free intraperit rodriguez air or fluid. No adenopathy. Osseous structures and soft tissues are unremarkable. Vasculature is within normal limits. Impression: 1. Large right ureteropelvic junction stone measuring 1.5 x 1.9 cm, similar to comparison, however p ossibly now symptomatic. No significant hydronephrosis or perinephric stranding. 2. Bilateral nephrolithiasis. 3. Left adnexal increased attenuation cystic lesion measuring 4.1 cm diameter with peripheral calcif ications, enlarged from comparison. Recommend pelvic ultrasound for further evaluation. ------ Exposure: One or more of the following individualized dose reduction techniques were utilized for thi s examination: 1. Automated exposure control 2. Adjustment of the mA and/or kV according to patient size 3. Use of iterative reconstruction technique. Electronically signed by: Raul Zheng MD (06/17/2021 9:06 PM) [facility]
--- NOTE | 2021-06-17 21:26 | RAD ---
INDICATION: Reason: Right upper quadrant pain, gallbladder study / Spl. Instructions: / History: COMPARISON: CT from same day TECHNIQUE: Grayscale and color ultrasound images obtained through the abdomen. FINDINGS: Pancreas: Limited visualization secondary to overlying bowel gas Liver: Echogenic. Prominent size. Portions are not well seen secondary to poor beam penetration throu gh the echogenic liver. Gallbladder: No definite stones. Common Bile Duct: Not dilated. Right Kidney: No hydronephrosis. The patient's known right extra renal pelvis stone is better seen on recent CT. Aorta/IVC: Inferior vena cava segmentally seen of the liver. Incomplete visualization of aorta. IMPRESSION: * No definite gallstones identified. * Echogenic liver. Nonspecific but can be seen with fatty infiltration. Electronically signed by: Edmund Del Rio MD (06/17/2021 9:24 PM) [id number]
== END 2021-06-17 21:09 | disposition home or self-care (01) ==
LOC: ER 15:37
DX: N20.0 Calculus of kidney (principal); E11.9 Type 2 diabetes mellitus without complications; I10 Essential (primary) hypertension; F17.200 Nicotine dependence, unspecified, uncomplicated; Z88.1 Allergy status to other antibiotic agents; Z88.6 Allergy status to analgesic agent
CPT/HCPCS: 36415; 71045; 74177; 76705; 80053; 81001; 81025; 82010; 83690; 83880; 84484; 85025; 96361; 96374; 96375; 99285; J0360; J1170; J2270; J2405; J2765; J7040; Q9967

== ENCOUNTER 2021-08-09 15:44 | Observation (INO) | payer OTHER ==
[~2021-08-09] VITALS: Ht 167.6 cm; Wt 126.5 kg
[2021-08-09] MEDS ORDERED: FAMOTIDINE 20 MG/2 ML VIAL IVP ONE (16:15)
[2021-08-09] MEDS ORDERED: IV NORMAL SALINE 1000ML BAG 1,000 ML IV SCH (16:15)
--- NOTE | 2021-08-09 16:31 | PHYS DOC ---
Past Medical History Past Medical History: Diabetes-Type II, Hypertension, Kidney Stone, Other Additional Past Medical Histor: AUTOIMMUNE HEPATITIS Past Surgical History: , Other Additional Past Surgical Histo: KIDNEY STONE REMOVAL Smoking Status: Current Every Day Smoker Alcohol Use: None General Adult EDM: Chief Complaint: CHEST PAIN HPI: HPI: Patient is a 40 year old female who presents with here for 2 days of left-sided chest pain that radiates to the right side and then goes down the right arm. She states it feels like a ripping or pressure type pain. She states that she has had some nausea and has vomited. Rates her pain a 7 out of 10 at this time. Took 3 baby aspirin at 1400 today. She states that did not help relieve her pain either. Her father has had a heart attack in the past. Patient states she has felt this kind of pain before but it is worse today. Patient has a history of hypertension, smoking, bronchitis, diabetes, kidney stone removal, , autoimmune hepatitis. Patient denies abdominal pain, back pain, dizziness, syncope, fever, cough, recent illness, diarrhea, urinary symptoms, extremity swelling, numbness or tingling, focal weakness. Review of Systems: Review of Systems: Constitutional: Denies fever or chills. [] Eyes: Denies change in visual acuity. [] HENT: Denies nasal congestion or sore throat. [] Respiratory: Denies cough or +shortness of breath. [] Cardiovascular: + chest pain or denies edema. [] GI: Denies abdominal pain, +nausea,+vomiting, denies bloody stools or diarrhea. [] : Denies dysuria. [] Musculoskeletal: Denies back pain or joint pain. [] Integument: Denies rash. [] Neurologic: + headache, denies focal weakness or sensory changes. [] Endocrine: Denies polyuria or polydipsia. [] Lymphatic: Denies swollen glands. [] Psychiatric: Denies depression or anxiety. [] Heart Score: C/O Chest Pain: Yes HEART Score for Chest Pain: HEART Score for Chest Pain Response (Comments) Value History Slighlty/Non-Suspicious 0 ECG Nonspecific Repolarizatio 1 Age < 45 0 Risk Factors >3 Risk Factors or Hx CAD 2 Troponin < Normal Limit 0 Total 3 Risk Factors: Risk Factors: DM, Current or recent (<one month) smoker, HTN, HLP, family history of CAD, obesity. Risk Scores: Score 0 - 3: 2.5% MACE over next 6 weeks - Discharge Home Score 4 - 6: 20.3% MACE over next 6 weeks - Admit for Clinical Observation Score 7 - 10: 72.7% MACE over next 6 weeks - Early Invasive Strategies Current Medications: Current Medications Medications (Trade) Dose Ordered Sig/Perla Start Time Stop Time Status Last Admin Dose Admin Famotidine (Pepcid Vial) 20 mg 1X ONCE 08/09/21 16:15 08/09/21 16:19 DC Nitroglycerin (Nitrostat) 0.4 mg PRN Q5MIN PRN 08/09/21 16:15 Sodium Chloride 1,000 ml @ 1,000 mls/hr Q1H 08/09/21 16:15 08/09/21 17:14 Allergies: Allergies: Allergies Coded Allergies Type Severity Reaction Last Updated Verified acetaminophen Allergy Intermediate 04/11/20 Yes doxycycline Allergy Intermediate SWELLING 04/11/20 Yes Physical Exam: PE: Constitutional: Well developed, well nourished, no acute distress, non-toxic appearance. [] HENT: Normocephalic, atraumatic, bilateral external ears normal, oropharynx moist, no oral exudates, nose normal. [] Eyes: PERRLA, EOMI, conjunctiva normal, no discharge. [] Neck: Normal range of motion, no tenderness, supple, no stridor. [] Cardiovascular:Heart rate regular tachycardia rhythm, no murmur [] Lungs & Thorax: Bilateral upper breath sounds clear lower diminished to auscultation [] Abdomen: Bowel sounds normal, soft, no tenderness, no masses, no pulsatile m asses. [] Skin: Warm, dry, no erythema, no rash. [] Back: No tenderness, no CVA tenderness. [] Extremities: No tenderness, no cyanosis, no clubbing, ROM intact, no edema. [] Neurologic: Alert and oriented X 3, normal motor function, normal sensory function, no focal deficits noted. [] Psychologic: Affect normal, judgement normal, mood normal. [] Current Patient Data: Vital Signs: Vital Signs Date Time Temp Pulse Resp B/P (MAP) Pulse Ox O2 Delivery O2 Flow Rate FiO2 08/09/21 15:44 98.5 108 18 150/77 (101) 98 Room Air 98.5 EKG: EK and read by Dr. House as a sinus tachycardia at 104 but no STEMI. Radiology/Procedures: Radiology/Procedures: [] Impression: [id number] [place] [address] IMAGING REPORT Signed PATIENT: ARTURO ARANGO ACCOUNT: [id number] : 1980 LOCATION: ER AGE: 40 SEX: F EXAM STATUS: REG ER ORD. PHYSICIAN: ELIZABETH COATES APRN REASON: ripping chest pain PROCEDURE: PORTABLE CHEST 1V Study: XR CHEST 1V Indication: Chest pain. Comparison: 06/17/2021 Findings: The cardiomediastinal silhouette and aga are within normal limits. No localized airspace opacity, pleural effusion or pneumothorax. Impression: No acute radiographic abnormality of the chest. Unchanged configuration of the cardiomediastinal silhouette from 06/17/2021. Electronically signed by: DEBO URRUTIA MD (08/09/2021 7:32 PM) [facility] DICTATED and SIGNED BY: DEBO URRUTIA MD DATE: 08/09/211930 [id number] [place] [address] IMAGING REPORT Signed PATIENT: ARTURO ARANGO ACCOUNT: [id number] : 1980 LOCATION: ER AGE: 40 SEX: F EXAM STATUS: REG ER ORD. PHYSICIAN: ELIZABETH COATES APRN REASON: chest pain, soa, ripping sharp feeling PROCEDURE: CT ANGIOGRAPHY CHEST CTA CHEST INDICATION: chest pain, soa, ripping sharp feeling Comparison: 09/08/2020. TECHNIQUE: Following the uneventful administration of intravenous contrast, 100 cc Omnipaque 350, axial CT sections were obtained through the lungs and upper abdomen. Multiplanar reconstructions and MIP images were obtained. PQRS compliance statement: One or more of the following individualized dose reduction techniques were ut ilized for this examination: 1. Automated exposure control 2. Adjustment of the mA and/or kV according to patient size 3. Use of iterative reconstruction technique FINDINGS: Pulmonary arteries: No evidence of pulmonary thromboembolic disease Lungs and Airways: No pulmonary mass or consolidation. No abnormality of the central airways. Pleura: The pleural spaces are normal. Heart and Mediastinum: The visualized thyroid is normal in size and attenuation. No axillary or supraclavicular lymphadenopathy. No mediastinal, hilar or retrocrural lymphadenopathy. The heart and pericardium are within normal limits. Normal caliber thoracic aorta. Tiny hiatal hernia. Abdomen: Partially visualized left renal calculi. Bones and Soft Tissues: The visualized bones and chest wall soft tissues are within normal limits. IMPRESSION: 1. No evidence of pulmonary thromboembolic disease. 2. No pulmonary mass or consolidation Electronically signed by: Venu Batres MD (08/09/2021 7:57 PM) [facility] DICTATED and SIGNED BY: VENU BATRES MD DATE: 08/09/211951 Course & Med Decision Making: Course & Med Decision Making Pertinent Labs and Imaging studies reviewed. (See chart for details) See HPI. Alert and oriented x4. Ambulatory with a steady gait. Speaks in full clear sentences. Skin pink warm and dry. No extremity edema. Lungs are clear in upper lobes and diminished in lower lobes. Smells heavily of cigarette smoke. Obese. Patient still in a lot of pain. Nitroglycerin did not help. Fentanyl 50 mcg did not help. I have now ordered morphine [address] chest shows no acute findings. Chest x-ray shows no acute findings. Her troponin went from less than 4 to a 6. Patient still having chest pain. I have also tried steroid and a breathing treatment with no success. Patient be admitted for intractable chest pain with a family history of ACS. Reema Disclaimer: Reema Disclaimer: This electronic medical record was generated, in whole or in part, using a voice recognition dictation system. Departure Departure Impression: Primary Impression: Chest pain Qualified Codes: R07.9 - Chest pain, unspecified Disposition: ADMITTED INPATIENT Admitting Physician: ARNIE Condition: STABLE Referrals: BOBBY JIMENES JR, MD (PCP) ELIZABETH COATES APRN Aug 09, 2021 16:31
[2021-08-09] MEDS: NITROGLYCERIN SUBLINGUAL 0.4 MG BOTTLE OF 25. SL PRN ×3 (16:49→23:10)
[2021-08-09 17:17] LABS: BASO # 0.1 x10^3/uL (0.0-0.2); BASO % 1 % (0-3); EOS # 0.5 x10^3/uL (0.0-0.7); EOS % 7 % (0-3); HEMATOCRIT 35.9 % (36.0-47.0); HEMOGLOBIN 11.7 g/dL (12.0-15.5); LYMPH # 1.8 x10^3/uL (1.0-4.8); LYMPH % 28 % (24-48); MEAN CORPUSCULAR HEMOGLOBIN 27 pg (25-35); MEAN CORPUSCULAR HGB CONC 33 g/dL (31-37); MEAN CORPUSCULAR VOLUME 81 fL (79-100); MONO # 0.5 x10^3/uL (0.0-1.1); MONO % 7 % (0-9); NEUT # 3.8 x10^3/uL (1.8-7.7); NEUT % 57 % (31-73); PLATELET COUNT 194 x10^3/uL (140-400); RED BLOOD COUNT 4.41 x10^6/uL (3.50-5.40); RED CELL DISTRIBUTION WIDTH 15.8 % (11.5-14.5); WHITE BLOOD COUNT 6.6 x10^3/uL (4.0-11.0)
[2021-08-09 17:36] LABS: CALCIUM 9.2 mg/dL (8.5-10.1); GFR 74.7; POTASSIUM 3.6 mmol/L (3.5-5.1)
[2021-08-09 17:42] LABS: ALBUMIN 2.6 g/dL (3.4-5.0); ALBUMIN/GLOBULIN RATIO 0.4 (1.0-1.7); MAGNESIUM 1.5 mg/dL (1.8-2.4); TOTAL BILIRUBIN 0.2 mg/dL (0.2-1.0); TOTAL PROTEIN 8.4 g/dL (6.4-8.2)
[2021-08-09 17:43] LABS: PROTHROMBIN TIME PATIENT 14.4 SEC (11.7-14.0)
[2021-08-09 17:53] LABS: BARBITURATES NEG (NEG); BENZODIAZEPINES NEG (NEG); CANNABINOIDS POS (NEG); COCAINE NEG (NEG); METHADONE NEG (NEG); OPIATES NEG (NEG); PHENCYCLIDINE NEG (NEG)
[2021-08-09 17:54] LABS: RBC,URINE TNTC /HPF (0-2)
[2021-08-09 17:55] LABS: BACTERIA,URINE MODERATE /HPF (0-FEW)
[2021-08-09] MEDS ORDERED: LIDOCAINE 1%/EPI 1:100,000 20 ML VIAL. INJ ONE (18:00)
[2021-08-09] MEDS ORDERED: IPRATRPIUM/ALBUTEROL 0.5/2.5MG 3 ML NEBU. NEB ONE (18:00)
[2021-08-09 18:01] LABS: AMPHETAMINE/METHAMPHETAMINE NEG (NEG)
[2021-08-09] MEDS ORDERED: MAGNESIUM SULFATE 2GM 50 ML IV ONE (18:30)
[2021-08-09] MEDS ORDERED: fentaNYL PF VIAL 100 MCG/2 ML VIAL IVP ONE (18:30)
[2021-08-09] MEDS ORDERED: MORPHINE SULFATE 4 MG/ML INJ. IVP ONE (19:00)
[2021-08-09] MEDS ORDERED: KETOROLAC 30 MG/ML VIAL. IVP ONE (19:15)
[2021-08-09 19:19] LABS: U PREG PATIENT NEGATIVE (NEG)
[2021-08-09] MEDS ORDERED: IOHEXOL 350 MG/ML 100 ML VIAL. IV ONE (19:30)
[2021-08-09] MEDS ORDERED: CONTRAST GIVEN. MC PRN (19:30)
--- NOTE | 2021-08-09 19:34 | RAD ---
Study: XR CHEST 1V Indication: Chest pain. Comparison: 06/17/2021 Findings: The cardiomediastinal silhouette and aga are within normal limits. No localized airspace opacity, pl eural effusion or pneumothorax. Impression: No acute radiographic abnormality of the chest. Unchanged configuration of the cardiomediastinal silh ouette from 06/17/2021. Electronically signed by: DEBO URRUTIA MD (08/09/2021 7:32 PM) [facility]
[2021-08-09] MEDS ORDERED: ONDANSETRON PF 4 MG/2 ML VIAL. IVP ONE (19:45)
--- NOTE | 2021-08-09 19:59 | RAD ---
CTA CHEST INDICATION: chest pain, soa, ripping sharp feeling Comparison: 09/08/2020. TECHNIQUE: Following the uneventful administration of intravenous contrast, 100 cc Omnipaque 350, axi al CT sections were obtained through the lungs and upper abdomen. Multiplanar reconstructions and MIP images were obtained. RS compliance statement: One or more of the following individualized dose reduction techniques were utilized for this examinat ion: 1. Automated exposure control 2. Adjustment of the mA and/or kV according to patient size 3. Use of iterative reconstruction technique FINDINGS: Pulmonary arteries: No evidence of pulmonary thromboembolic disease Lungs and Airways: No pulmonary mass or consolidation. No abnormality of the central airways. Pleura: The pleural spaces are normal. Heart and Mediastinum: The visualized thyroid is normal in size and attenuation. No axillary or supra clavicular lymphadenopathy. No mediastinal, hilar or retrocrural lymphadenopathy. The heart and peric ardium are within normal limits. Normal caliber thoracic aorta. Tiny hiatal hernia. Abdomen: Partially visualized left renal calculi. Bones and Soft Tissues: The visualized bones and chest wall soft tissues are within normal limits. IMPRESSION: 1. No evidence of pulmonary thromboembolic disease. 2. No pulmonary mass or consolidation Electronically signed by: Homero Batres MD (08/09/2021 7:57 PM) [facility]
--- NOTE | 2021-08-09 21:50 | NUR ---
Admit to 664 from ED. C/o chest pain, "starts in left shoulder bone to middle of chest, then goes to right shoulder then shoots down to my fingers." Rates 10/10 as "burning" and "stabbing" pain. Hooked to monitor. Patient is talkative but a poor historian.
[2021-08-09 22:05] VITALS: BP 172/87
[2021-08-09] MEDS: MORPHINE SULFATE 2 MG/ML INJ. IVP PRN (23:11)
--- NOTE | 2021-08-09 23:15 | NUR ---
C/o chest pain, rates 10/10. BP 154/77, P 88, O2 applied 9f=515%. Morphine given IVP. Nitro given SL. Alma Rosa spoke w/ Dr. Hudson for orders. 12 lead EKG done; NSR.
--- NOTE | 2021-08-09 23:24 | EKG ---
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
[2021-08-09 23:32] VITALS: BP 154/77
[2021-08-09] MEDS ORDERED: FAMOTIDINE 20 MG TABLET. PO ONE (23:45)
--- NOTE | 2021-08-10 00:28 | EKG ---
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
--- NOTE | 2021-08-10 00:28 | EKG ---
[facility] [address] [place] [address] Test Date: 2021-08-09 Test Time: 15:56:06 Pat Name: ARTURO ARANGO Department: Room: [facility] Gender: F [employer] Marketing: : 1980 Requested By: ELIZABETH COATES Order Number: [id number] Reading MD: Denton Gordon Measurements Intervals [place] Rate: 104 P: -93 [place]: 96 QRS: 5 QRSD: 74 T: 23 QT: 330 QTc: 440 Interpretive Statements SINUS TACHYCARDIA Electronically Signed On 08-16-2021 14:14:48 CDT by eDnton Gordon
[2021-08-10] MEDS: MORPHINE SULFATE 2 MG/ML INJ. IVP PRN ×2 (02:13→08:30)
[2021-08-10 03:35] VITALS: BP 145/68
--- NOTE | 2021-08-10 06:54 | NUR ---
"I haven't seen a doctor since I've been here." Seems tense, "I'm ready to go." Denies chest pain, c/o pain in palm of her right hand.
[2021-08-10 07:00] VITALS: BP 168/106
--- NOTE | 2021-08-10 07:21 | PDOC2 ---
CONSULT Date of Consult Date of Consult DATE: 08/10/21 TIME: 07:21 Reason for Consult Reason for Consult: Chest pain Referring Physician Referring Physician: Dr. Gordon Identification/Chief Complaint Chief Complaint Chest pain Source Source: Chart review, Patient History of Present Illness Reason for Visit: 40-year-old female without any previous cardiac history presented with retrosternal chest pain, sharp in nature, 7/10 severity and not related to exertion or food intake. She has had approximately 7 ED visits for similar chest pain in the past 2 years. She denied any orthopnea/PND, palpitations or syncope. Past Medical History Past Medical History Hypertension Bronchitis Diabetes mellitus type 2 Nephrolithiasis Autoimmune hepatitis Past Surgical History Past Surgical History section Family History Family History Negative for premature coronary artery disease Social History Social History Patient smokes 1 pack of cigarettes daily and admitted to occasional intake of alcohol. She denied any drug abuse. Current Problem List Problem List Problems Medical Problems: (1) Chest pain Status: Acute Current Medications Current Medications Current Medications Sodium Chloride 1,000 ml @ 1,000 mls/hr Q1H IV Last administered on 08/09/21at 16:54; Start 08/09/21 at 16:15; Stop 08/09/21 at 17:14; Status DC Nitroglycerin (Nitrostat) 0.4 mg PRN Q5MIN PRN SL CHEST PAIN Last administered on 08/09/21at 23:10; Start 08/09/21 at 16:15 Famotidine (Pepcid Vial) 20 mg 1X ONCE IVP Last administered on 08/09/21at 16:47; Start 08/09/21 at 16:15; Stop 08/09/21 at 16:19; Status DC Lidocaine/ Epinephrine (LIDOCAINE 1%-EPI 1:100,000 Multi-Dose) 20 ml 1X ONCE INJ ; Start 08/09/21 at 18:00; Stop 08/09/21 at 18:01; Status UNV Albuterol/ Ipratropium (Duoneb) 6 ml 1X ONCE NEB Last administered on 08/09/21at 18:01; Start 08/09/21 at 18:00; Stop 08/09/21 at 18:01; Status DC Magnesium Sulfate 50 ml @ 25 mls/hr 1X ONCE IV Last administered on 08/09/21at 18:47; Start 08/09/21 at 18:30; Stop 08/09/21 at 20:29; Status DC Fentanyl Citrate (Fentanyl 2ml Vial) 50 mcg 1X ONCE IVP Last administered on 08/09/21at 18:06; Start 08/09/21 at 18:30; Stop 08/09/21 at 18:31; Status DC Morphine Sulfate (Morphine Sulfate) 4 mg 1X ONCE IVP Last administered on 08/09/21at 19:26; Start 08/09/21 at 19:00; Stop 08/09/21 at 19:02; Status DC Ketorolac Tromethamine (Toradol 30mg Vial) 30 mg 1X ONCE IVP Last administered on 08/09/21at 19:26; Start 08/09/21 at 19:15; Stop 08/09/21 at 19:16; Status DC Iohexol (Omnipaque 350 Mg/ml) 100 ml 1X ONCE IV Last administered on 08/09/21at 19:42; Start 08/09/21 at 19:30; Stop 08/09/21 at 19:31; Status DC Info (CONTRAST GIVEN -- Rx MONITORING) 1 each PRN DAILY PRN MC SEE COMMENTS; Start 08/09/21 at 19:30; Stop 08/11/21 at 19:29 Ondansetron HCl (Zofran) 4 mg 1X ONCE IVP Last administered on 08/09/21at 19:37; Start 08/09/21 at 19:45; Stop 08/09/21 at 19:46; Status DC Morphine Sulfate (Morphine Sulfate) 2 mg PRN Q2HR PRN IVP SEVERE PAIN 7-10 Last administered on 08/10/21at 02:13; Start 08/09/21 at 23:15 Famotidine (Pepcid) 20 mg 1X ONCE PO Last administered on 08/09/21at 23:35; Start 08/09/21 at 23:45; Stop 08/09/21 at 23:46; Status DC Active Scripts Active Anaprox Ds (Naproxen Sodium) 550 Mg Tablet 1 Tab PO BID PRN 15 Days Tramadol Hcl 50 Mg Tablet 50 Mg PO Q6HRS PRN Ibuprofen 600 Mg Tablet 600 Mg PO PRN Q6HRS PRN Cipro (Ciprofloxacin Hcl) 500 Mg Tablet 1 Tab PO BID 7 Days Anaprox Ds (Naproxen Sodium) 550 Mg Tablet 1 Tab PO BID PRN 15 Days Oxycodone Hcl 5 Mg Capsule 5 Mg PO PRN Q6HRS PRN Bactrim Ds Tablet (Sulfamethoxazole/Trimethoprim) 1 Each Tablet 1 Tab PO BID 3 Days Hydrocodone-Ibuprofen 7.5-200 (Hydrocodone/Ibuprofen) 1 Each Tablet 1 Tab PO PRN Q6HRS PRN Tramadol Hcl 50 Mg Tablet 50 Mg PO Q6HRS PRN Allergies Allergies: Coded Allergies: acetaminophen (Verified Allergy, Intermediate, 04/11/20) "D/T LIVER PROBLEMS" doxycycline (Verified Allergy, Intermediate, SWELLING, 04/11/20) ROS Review of System 14 point review of systems is negative other than for the symptoms stated in HPI. Physical Exam General: Alert, No acute distress HEENT: Atraumatic Lungs: Clear to auscultation Heart: Regular rate Abdomen: Soft Extremities: No edema Neuro: Normal speech Psych/Mental Status: Mood NL Vitals VITALS Vital Signs Date Time Temp Pulse Resp B/P (MAP) Pulse Ox O2 Delivery O2 Flow Rate FiO2 08/10/21 04:32 Nasal Cannula 2.0 08/10/21 03:35 97.4 83 21 145/68 (93) 100 97.4 Labs Labs Laboratory Tests Test 08/09/21 16:52 08/09/21 17:00 08/09/21 19:31 08/10/21 01:00 White Blood Count 6.6 x10^3/uL (4.0-11.0) Red Blood Count 4.41 x10^6/uL (3.50-5.40) Hemoglobin 11.7 g/dL (12.0-15.5) Hematocrit 35.9 % (36.0-47.0) Mean Corpuscular Volume 81 fL (79-100) Mean Corpuscular Hemoglobin 27 pg (25-35) Mean Corpuscular Hemoglobin Concent 33 g/dL (31-37) Red Cell Distribution Width 15.8 % (11.5-14.5) Platelet Count 194 x10^3/uL (140-400) Neutrophils (%) (Auto) 57 % (31-73) Lymphocytes (%) (Auto) 28 % (24-48) Monocytes (%) (Auto) 7 % (0-9) Eosinophils (%) (Auto) 7 % (0-3) Basophils (%) (Auto) 1 % (0-3) Neutrophils # (Auto) 3.8 x10^3/uL (1.8-7.7) Lymphocytes # (Auto) 1.8 x10^3/uL (1.0-4.8) Monocytes # (Auto) 0.5 x10^3/uL (0.0-1.1) Eosinophils # (Auto) 0.5 x10^3/uL (0.0-0.7) Basophils # (Auto) 0.1 x10^3/uL (0.0-0.2) Erythrocyte Sedimentation Rate 72 (0-25) Prothrombin Time 14.4 SEC (11.7-14.0) Prothromb Time International Ratio 1.2 (0.8-1.1) Maternal Serum HCG Beta Subunit < 1 mIU/mL (0-5) Sodium Level 134 mmol/L (136-145) Potassium Level 3.6 mmol/L (3.5-5.1) Chloride Level 102 mmol/L (98-107) Carbon Dioxide Level 24 mmol/L (21-32) Anion Gap 8 (6-14) Blood Urea Nitrogen 12 mg/dL (7-20) Creatinine 1.0 mg/dL (0.6-1.0) Estimated GFR (Cockcroft-Gault) 74.7 BUN/Creatinine Ratio 12 (6-20) Glucose Level 189 mg/dL (70-99) Calcium Level 9.2 mg/dL (8.5-10.1) Magnesium Level 1.5 mg/dL (1.8-2.4) Total Bilirubin 0.2 mg/dL (0.2-1.0) Aspartate Amino Transf (AST/SGOT) 32 U/L (15-37) Alanine Aminotransferase (ALT/SGPT) 24 U/L (14-59) Alkaline Phosphatase 100 U/L (46-116) Troponin I High Sensitivity < 4 ng/L (4-50) 6 ng/L (4-50) 7 ng/L (4-50) C-Reactive Protein, Quantitative 11.6 mg/L (0-3.3) GF-Mmm-T-Type Natriuretic Peptide 38 pg/mL (0-124) Total Protein 8.4 g/dL (6.4-8.2) Albumin 2.6 g/dL (3.4-5.0) Albumin/Globulin Ratio 0.4 (1.0-1.7) Lipase 216 U/L (73-393) Urine Collection Type Unknown Urine Color (Auto) Red Urine Turbidity Bloody Urine pH (Auto) (<5.0-8.0) Urine Specific [place] (1.000-1.030) Urine Protein (Auto) mg/dL (Negative) Urine Glucose (Auto)(UA) mg/dL (Negative) Urine Ketones (Auto) mg/dL (Negative) Urine Blood (Auto) (Negative) Urine Nitrite (Negative) Urine Bilirubin (Auto) (Negative) Urine Urobilinogen (Auto) mg/dL (Normal) Urine Leukocyte Esterase (Auto) (Negative) Urine RBC Tntc /HPF (0-2) Urine WBC 5-10 /HPF (0-4) Urine Squamous Epithelial Cells Mod /LPF Urine Bacteria Moderate /HPF (0-FEW) Urine Mucus Slight /LPF Urine Test Negative (NEG) Urine Opiates Screen Neg (NEG) Urine Methadone Screen Neg (NEG) Urine Barbiturates Neg (NEG) Urine Phencyclidine Screen Neg (NEG) Urine Amphetamine/Methamphetamine Neg (NEG) Urine Benzodiazepines Screen Neg (NEG) Urine Cocaine Screen Neg (NEG) Urine Cannabinoids Screen Pos (NEG) Urine Ethyl Alcohol Neg (NEG) Laboratory Tests Test 08/09/21 16:52 08/09/21 17:00 08/09/21 19:31 08/10/21 01:00 White Blood Count 6.6 x10^3/uL (4.0-11.0) Red Blood Count 4.41 x10^6/uL (3.50-5.40) Hemoglobin 11.7 g/dL (12.0-15.5) Hematocrit 35.9 % (36.0-47.0) Mean Corpuscular Volume 81 fL (79-100) Mean Corpuscular Hemoglobin 27 pg (25-35) Mean Corpuscular Hemoglobin Concent 33 g/dL (31-37) Red Cell Distribution Width 15.8 % (11.5-14.5) Platelet Count 194 x10^3/uL (140-400) Neutrophils (%) (Auto) 57 % (31-73) Lymphocytes (%) (Auto) 28 % (24-48) Monocytes (%) (Auto) 7 % (0-9) Eosinophils (%) (Auto) 7 % (0-3) Basophils (%) (Auto) 1 % (0-3) Neutrophils # (Auto) 3.8 x10^3/uL (1.8-7.7) Lymphocytes # (Auto) 1.8 x10^3/uL (1.0-4.8) Monocytes # (Auto) 0.5 x10^3/uL (0.0-1.1) Eosinophils # (Auto) 0.5 x10^3/uL (0.0-0.7) Basophils # (Auto) 0.1 x10^3/uL (0.0-0.2) Erythrocyte Sedimentation Rate 72 (0-25) Prothrombin Time 14.4 SEC (11.7-14.0) Prothromb Time International Ratio 1.2 (0.8-1.1) Maternal Serum HCG Beta Subunit < 1 mIU/mL (0-5) Sodium Level 134 mmol/L (136-145) Potassium Level 3.6 mmol/L (3.5-5.1) Chloride Level 102 mmol/L (98-107) Carbon Dioxide Level 24 mmol/L (21-32) Anion Gap 8 (6-14) Blood Urea Nitrogen 12 mg/dL (7-20) Creatinine 1.0 mg/dL (0.6-1.0) Estimated GFR (Cockcroft-Gault) 74.7 BUN/Creatinine Ratio 12 (6-20) Glucose Level 189 mg/dL (70-99) Calcium Level 9.2 mg/dL (8.5-10.1) Magnesium Level 1.5 mg/dL (1.8-2.4) Total Bilirubin 0.2 mg/dL (0.2-1.0) Aspartate Amino Transf (AST/SGOT) 32 U/L (15-37) Alanine Aminotransferase (ALT/SGPT) 24 U/L (14-59) Alkaline Phosphatase 100 U/L (46-116) Troponin I High Sensitivity < 4 ng/L (4-50) 6 ng/L (4-50) 7 ng/L (4-50) C-Reactive Protein, Quantitative 11.6 mg/L (0-3.3) XH-Ani-J-Type Natriuretic Peptide 38 pg/mL (0-124) Total Protein 8.4 g/dL (6.4-8.2) Albumin 2.6 g/dL (3.4-5.0) Albumin/Globulin Ratio 0.4 (1.0-1.7) Lipase 216 U/L (73-393) Urine Collection Type Unknown Urine Color (Auto) Red Urine Turbidity Bloody Urine pH (Auto) (<5.0-8.0) Urine Specific [place] (1.000-1.030) Urine Protein (Auto) mg/dL (Negative) Urine Glucose (Auto)(UA) mg/dL (Negative) Urine Ketones (Auto) mg/dL (Negative) Urine Blood (Auto) (Negative) Urine Nitrite (Negative) Urine Bilirubin (Auto) (Negative) Urine Urobilinogen (Auto) mg/dL (Normal) Urine Leukocyte Esterase (Auto) (Negative) Urine RBC Tntc /HPF (0-2) Urine WBC 5-10 /HPF (0-4) Urine Squamous Epithelial Cells Mod /LPF Urine Bacteria Moderate /HPF (0-FEW) Urine Mucus Slight /LPF Urine Test Negative (NEG) Urine Opiates Screen Neg (NEG) Urine Methadone Screen Neg (NEG) Urine Barbiturates Neg (NEG) Urine Phencyclidine Screen Neg (NEG) Urine Amphetamine/Methamphetamine Neg (NEG) Urine Benzodiazepines Screen Neg (NEG) Urine Cocaine Screen Neg (NEG) Urine Cannabinoids Screen Pos (NEG) Urine Ethyl Alcohol Neg (NEG) Assessment/Plan Assessment/Plan 1. Chest pain with atypical features, reproducible to palpation and musculoskeletal. Myocardial infarction has been ruled out. No further cardiac work-up is indicated at this time. 2. Tobacco abuse: Advised smoking cessation FRANCISCO JAVIER REYES MD Aug 10, 2021 07:21
[2021-08-10] MEDS ORDERED: oxyCODONE/APAP 7.5/325 1 TAB TABLET PO PRN (09:00)
[2021-08-10] MEDS ORDERED: LIDO700A21 TD (09:49)
[2021-08-10] MEDS ORDERED: TRAM50TA PO (09:49)
[2021-08-10] MEDS ORDERED: FAMO20TA5 PO (09:49)
[2021-08-10] MEDS ORDERED: LIDO:MAALOX 1:1 20 ML SINGLE DOSE. PO ONE (10:30)
[2021-08-10] MEDS ORDERED: LIDOCAINE (700MG/PATCH) PATCH. TD ONE (10:30)
[2021-08-10] MEDS ORDERED: FAMOTIDINE 20 MG TABLET. PO ONE (10:30)
--- NOTE | 2021-08-10 12:09 | PDOC1 ---
History and Physical Date of Admission Date of Admission DATE: 08/10/21 TIME: 12:06 History of Present Illness History of Present Illness MS. Kelly is a 40 year old female admti for chest pain. 11/10, better with pain meds Looks like 7 ER visits for chest pain in the past 2 yeasrs. reproducible pain to chest, shoulders, hips and knees consistent with FIBROMYALGIA Past Medical History Past Medical History Patient has a history of hypertension, smoking, bronchitis, diabetes, kidney stone removal, , autoimmune hepatitis. Social History Smoke: 1 pack per day ALCOHOL: rare Drugs: None Current Problem List Problem List Problems Medical Problems: (1) Chest pain Status: Acute Current Medications Current Medications Current Medications Sodium Chloride 1,000 ml @ 1,000 mls/hr Q1H IV Last administered on 08/09/21at 16:54; Start 08/09/21 at 16:15; Stop 08/09/21 at 17:14; Status DC Nitroglycerin (Nitrostat) 0.4 mg PRN Q5MIN PRN SL CHEST PAIN Last administered on 08/09/21at 23:10; Start 08/09/21 at 16:15; Stop 08/10/21 at 11:11; Status DC Famotidine (Pepcid Vial) 20 mg 1X ONCE IVP Last administered on 08/09/21at 16:47; Start 08/09/21 at 16:15; Stop 08/09/21 at 16:19; Status DC Lidocaine/ Epinephrine (LIDOCAINE 1%-EPI 1:100,000 Multi-Dose) 20 ml 1X ONCE INJ ; Start 08/09/21 at 18:00; Stop 08/09/21 at 18:01; Status UNV Albuterol/ Ipratropium (Duoneb) 6 ml 1X ONCE NEB Last administered on 08/09/21at 18:01; Start 08/09/21 at 18:00; Stop 08/09/21 at 18:01; Status DC Magnesium Sulfate 50 ml @ 25 mls/hr 1X ONCE IV Last administered on 08/09/21at 18:47; Start 08/09/21 at 18:30; Stop 08/09/21 at 20:29; Status DC Fentanyl Citrate (Fentanyl 2ml Vial) 50 mcg 1X ONCE IVP Last administered on 08/09/21at 18:06; Start 08/09/21 at 18:30; Stop 08/09/21 at 18:31; Status DC Morphine Sulfate (Morphine Sulfate) 4 mg 1X ONCE IVP Last administered on 08/09/21at 19:26; Start 08/09/21 at 19:00; Stop 08/09/21 at 19:02; Status DC Ketorolac Tromethamine (Toradol 30mg Vial) 30 mg 1X ONCE IVP Last administered on 08/09/21at 19:26; Start 08/09/21 at 19:15; Stop 08/09/21 at 19:16; Status DC Iohexol (Omnipaque 350 Mg/ml) 100 ml 1X ONCE IV Last administered on 08/09/21at 19:42; Start 08/09/21 at 19:30; Stop 08/09/21 at 19:31; Status DC Info (CONTRAST GIVEN -- Rx MONITORING) 1 each PRN DAILY PRN MC SEE COMMENTS; Start 08/09/21 at 19:30; Stop 08/10/21 at 11:11; Status DC Ondansetron HCl (Zofran) 4 mg 1X ONCE IVP Last administered on 08/09/21at 19:37; Start 08/09/21 at 19:45; Stop 08/09/21 at 19:46; Status DC Morphine Sulfate (Morphine Sulfate) 2 mg PRN Q2HR PRN IVP SEVERE PAIN 7-10 Last administered on 08/10/21at 08:30; Start 08/09/21 at 23:15; Stop 08/10/21 at 11:11; Status DC Famotidine (Pepcid) 20 mg 1X ONCE PO Last administered on 08/09/21at 23:35; Start 08/09/21 at 23:45; Stop 08/09/21 at 23:46; Status DC Oxycodone/ Acetaminophen (Percocet 7.5/ 325) 1 tab PRN Q4HRS PRN PO PAIN; Start 08/10/21 at 09:00; Stop 08/10/21 at 11:11; Status DC Lidocaine (Lidoderm) 1 patch 1X ONCE TD ; Start 08/10/21 at 10:30; Stop 08/10/21 at 10:31; Status DC Famotidine (Pepcid) 20 mg 1X ONCE PO Last administered on 08/10/21at 10:30; Start 08/10/21 at 10:30; Stop 08/10/21 at 10:31; Status DC Multi-Ingredient Mouthwash/Gargle (Gi Cocktail) 20 ml 1X ONCE PO Last administered on 08/10/21at 10:30; Start 08/10/21 at 10:30; Stop 08/10/21 at 10:31; Status DC Active Scripts Active Lidocaine PATCH (Lidocaine) 1 Each Adh..patch 1 Patch TD DAILY 7 Days Famotidine 20 Mg Tablet 20 Mg PO DAILY Tramadol Hcl 50 Mg Tablet 50 Mg PO Q6HRS PRN Allergies Allergies: Coded Allergies: acetaminophen (Verified Allergy, Intermediate, 04/11/20) "D/T LIVER PROBLEMS" doxycycline (Verified Allergy, Intermediate, SWELLING, 04/11/20) ROS Review of System no abdominal pain, back pain, dizziness, syncope, fever, cough, recent illness, diarrhea, urinary symptoms, extremity swelling, numbness or tingling, focal weakness. Physical Exam General: Alert, Cooperative, mild distress Heart: no gallops, no murmurs Extremities: Normal pulses Neuro: Normal speech, Normal tone Psych/Mental Status: Mood NL Vitals Vitals Vital Signs Date Time Temp Pulse Resp B/P (MAP) Pulse Ox O2 Delivery O2 Flow Rate FiO2 08/10/21 10:05 Room Air 08/10/21 07:00 98.1 84 21 168/106 (126) 100 98.1 08/10/21 04:32 2.0 Labs Labs Laboratory Tests Test 08/09/21 16:52 08/09/21 17:00 08/09/21 19:31 08/10/21 01:00 White Blood Count 6.6 x10^3/uL (4.0-11.0) Red Blood Count 4.41 x10^6/uL (3.50-5.40) Hemoglobin 11.7 g/dL (12.0-15.5) Hematocrit 35.9 % (36.0-47.0) Mean Corpuscular Volume 81 fL (79-100) Mean Corpuscular Hemoglobin 27 pg (25-35) Mean Corpuscular Hemoglobin Concent 33 g/dL (31-37) Red Cell Distribution Width 15.8 % (11.5-14.5) Platelet Count 194 x10^3/uL (140-400) Neutrophils (%) (Auto) 57 % (31-73) Lymphocytes (%) (Auto) 28 % (24-48) Monocytes (%) (Auto) 7 % (0-9) Eosinophils (%) (Auto) 7 % (0-3) Basophils (%) (Auto) 1 % (0-3) Neutrophils # (Auto) 3.8 x10^3/uL (1.8-7.7) Lymphocytes # (Auto) 1.8 x10^3/uL (1.0-4.8) Monocytes # (Auto) 0.5 x10^3/uL (0.0-1.1) Eosinophils # (Auto) 0.5 x10^3/uL (0.0-0.7) Basophils # (Auto) 0.1 x10^3/uL (0.0-0.2) Erythrocyte Sedimentation Rate 72 (0-25) Prothrombin Time 14.4 SEC (11.7-14.0) Prothromb Time International Ratio 1.2 (0.8-1.1) Maternal Serum HCG Beta Subunit < 1 mIU/mL (0-5) Sodium Level 134 mmol/L (136-145) Potassium Level 3.6 mmol/L (3.5-5.1) Chloride Level 102 mmol/L (98-107) Carbon Dioxide Level 24 mmol/L (21-32) Anion Gap 8 (6-14) Blood Urea Nitrogen 12 mg/dL (7-20) Creatinine 1.0 mg/dL (0.6-1.0) Estimated GFR (Cockcroft-Gault) 74.7 BUN/Creatinine Ratio 12 (6-20) Glucose Level 189 mg/dL (70-99) Calcium Level 9.2 mg/dL (8.5-10.1) Magnesium Level 1.5 mg/dL (1.8-2.4) Total Bilirubin 0.2 mg/dL (0.2-1.0) Aspartate Amino Transf (AST/SGOT) 32 U/L (15-37) Alanine Aminotransferase (ALT/SGPT) 24 U/L (14-59) Alkaline Phosphatase 100 U/L (46-116) Troponin I High Sensitivity < 4 ng/L (4-50) 6 ng/L (4-50) 7 ng/L (4-50) C-Reactive Protein, Quantitative 11.6 mg/L (0-3.3) JZ-Cvp-O-Type Natriuretic Peptide 38 pg/mL (0-124) Total Protein 8.4 g/dL (6.4-8.2) Albumin 2.6 g/dL (3.4-5.0) Albumin/Globulin Ratio 0.4 (1.0-1.7) Lipase 216 U/L (73-393) Urine Collection Type Unknown Urine Color (Auto) Red Urine Turbidity Bloody Urine pH (Auto) (<5.0-8.0) Urine Specific [place] (1.000-1.030) Urine Protein (Auto) mg/dL (Negative) Urine Glucose (Auto)(UA) mg/dL (Negative) Urine Ketones (Auto) mg/dL (Negative) Urine Blood (Auto) (Negative) Urine Nitrite (Negative) Urine Bilirubin (Auto) (Negative) Urine Urobilinogen (Auto) mg/dL (Normal) Urine Leukocyte Esterase (Auto) (Negative) Urine RBC Tntc /HPF (0-2) Urine WBC 5-10 /HPF (0-4) Urine Squamous Epithelial Cells Mod /LPF Urine Bacteria Moderate /HPF (0-FEW) Urine Mucus Slight /LPF Urine Test Negative (NEG) Urine Opiates Screen Neg (NEG) Urine Methadone Screen Neg (NEG) Urine Barbiturates Neg (NEG) Urine Phencyclidine Screen Neg (NEG) Urine Amphetamine/Methamphetamine Neg (NEG) Urine Benzodiazepines Screen Neg (NEG) Urine Cocaine Screen Neg (NEG) Urine Cannabinoids Screen Pos (NEG) Urine Ethyl Alcohol Neg (NEG) Laboratory Tests Test 08/09/21 16:52 08/09/21 17:00 08/09/21 19:31 08/10/21 01:00 White Blood Count 6.6 x10^3/uL (4.0-11.0) Red Blood Count 4.41 x10^6/uL (3.50-5.40) Hemoglobin 11.7 g/dL (12.0-15.5) Hematocrit 35.9 % (36.0-47.0) Mean Corpuscular Volume 81 fL (79-100) Mean Corpuscular Hemoglobin 27 pg (25-35) Mean Corpuscular Hemoglobin Concent 33 g/dL (31-37) Red Cell Distribution Width 15.8 % (11.5-14.5) Platelet Count 194 x10^3/uL (140-400) Neutrophils (%) (Auto) 57 % (31-73) Lymphocytes (%) (Auto) 28 % (24-48) Monocytes (%) (Auto) 7 % (0-9) Eosinophils (%) (Auto) 7 % (0-3) Basophils (%) (Auto) 1 % (0-3) Neutrophils # (Auto) 3.8 x10^3/uL (1.8-7.7) Lymphocytes # (Auto) 1.8 x10^3/uL (1.0-4.8) Monocytes # (Auto) 0.5 x10^3/uL (0.0-1.1) Eosinophils # (Auto) 0.5 x10^3/uL (0.0-0.7) Basophils # (Auto) 0.1 x10^3/uL (0.0-0.2) Erythrocyte Sedimentation Rate 72 (0-25) Prothrombin Time 14.4 SEC (11.7-14.0) Prothromb Time International Ratio 1.2 (0.8-1.1) Maternal Serum HCG Beta Subunit < 1 mIU/mL (0-5) Sodium Level 134 mmol/L (136-145) Potassium Level 3.6 mmol/L (3.5-5.1) Chloride Level 102 mmol/L (98-107) Carbon Dioxide Level 24 mmol/L (21-32) Anion Gap 8 (6-14) Blood Urea Nitrogen 12 mg/dL (7-20) Creatinine 1.0 mg/dL (0.6-1.0) Estimated GFR (Cockcroft-Gault) 74.7 BUN/Creatinine Ratio 12 (6-20) Glucose Level 189 mg/dL (70-99) Calcium Level 9.2 mg/dL (8.5-10.1) Magnesium Level 1.5 mg/dL (1.8-2.4) Total Bilirubin 0.2 mg/dL (0.2-1.0) Aspartate Amino Transf (AST/SGOT) 32 U/L (15-37) Alanine Aminotransferase (ALT/SGPT) 24 U/L (14-59) Alkaline Phosphatase 100 U/L (46-116) Troponin I High Sensitivity < 4 ng/L (4-50) 6 ng/L (4-50) 7 ng/L (4-50) C-Reactive Protein, Quantitative 11.6 mg/L (0-3.3) LP-Oen-C-Type Natriuretic Peptide 38 pg/mL (0-124) Total Protein 8.4 g/dL (6.4-8.2) Albumin 2.6 g/dL (3.4-5.0) Albumin/Globulin Ratio 0.4 (1.0-1.7) Lipase 216 U/L (73-393) Urine Collection Type Unknown Urine Color (Auto) Red Urine Turbidity Bloody Urine pH (Auto) (<5.0-8.0) Urine Specific [place] (1.000-1.030) Urine Protein (Auto) mg/dL (Negative) Urine Glucose (Auto)(UA) mg/dL (Negative) Urine Ketones (Auto) mg/dL (Negative) Urine Blood (Auto) (Negative) Urine Nitrite (Negative) Urine Bilirubin (Auto) (Negative) Urine Urobilinogen (Auto) mg/dL (Normal) Urine Leukocyte Esterase (Auto) (Negative) Urine RBC Tntc /HPF (0-2) Urine WBC 5-10 /HPF (0-4) Urine Squamous Epithelial Cells Mod /LPF Urine Bacteria Moderate /HPF (0-FEW) Urine Mucus Slight /LPF Urine Test Negative (NEG) Urine Opiates Screen Neg (NEG) Urine Methadone Screen Neg (NEG) Urine Barbiturates Neg (NEG) Urine Phencyclidine Screen Neg (NEG) Urine Amphetamine/Methamphetamine Neg (NEG) Urine Benzodiazepines Screen Neg (NEG) Urine Cocaine Screen Neg (NEG) Urine Cannabinoids Screen Pos (NEG) Urine Ethyl Alcohol Neg (NEG) VTE Prophylaxis Ordered VTE Prophylaxis Devices: No VTE Pharmacological Prophylaxi: No Assessment/Plan Assessment/Plan chest pain chostochondritis fibromyalgia morbid obesity, BMI 45 tobacco use disorder poor interest in her health, would rather drink soda than eat vegetables severe malnutritio, hypomagnesia vitamin deficiency Justifications for Admission Other Justification ABNER SHERMAN MD Aug 10, 2021 12:09
--- NOTE | 2021-08-10 12:11 | PDOC3 ---
Discharge Summary Visit Information Date of Admission: Aug 09, 2021 Date of Discharge: Aug 10, 2021 Final Diagnosis chest pain chostochondritis fibromyalgia GERD morbid obesity, BMI 45 tobacco use disorder poor interest in her health, would rather drink soda than eat vegetables severe malnutritio, hypomagnesia vitamin deficiency Problems Medical Problems: (1) Chest pain Status: Acute Brief Hospital Course Allergies Allergies Coded Allergies Type Severity Reaction Last Updated Verified acetaminophen Allergy Intermediate 04/11/20 Yes doxycycline Allergy Intermediate SWELLING 04/11/20 Yes Vital Signs Vital Signs Date Time Temp Pulse Resp B/P (MAP) Pulse Ox O2 Delivery O2 Flow Rate FiO2 08/10/21 10:05 Room Air 08/10/21 07:00 98.1 84 21 168/106 (126) 100 98.1 08/10/21 04:32 2.0 Lab Results Laboratory Tests Test 08/09/21 16:52 08/09/21 17:00 08/09/21 19:31 08/10/21 01:00 White Blood Count 6.6 x10^3/uL (4.0-11.0) Red Blood Count 4.41 x10^6/uL (3.50-5.40) Hemoglobin 11.7 g/dL (12.0-15.5) Hematocrit 35.9 % (36.0-47.0) Mean Corpuscular Volume 81 fL (79-100) Mean Corpuscular Hemoglobin 27 pg (25-35) Mean Corpuscular Hemoglobin Concent 33 g/dL (31-37) Red Cell Distribution Width 15.8 % (11.5-14.5) Platelet Count 194 x10^3/uL (140-400) Neutrophils (%) (Auto) 57 % (31-73) Lymphocytes (%) (Auto) 28 % (24-48) Monocytes (%) (Auto) 7 % (0-9) Eosinophils (%) (Auto) 7 % (0-3) Basophils (%) (Auto) 1 % (0-3) Neutrophils # (Auto) 3.8 x10^3/uL (1.8-7.7) Lymphocytes # (Auto) 1.8 x10^3/uL (1.0-4.8) Monocytes # (Auto) 0.5 x10^3/uL (0.0-1.1) Eosinophils # (Auto) 0.5 x10^3/uL (0.0-0.7) Basophils # (Auto) 0.1 x10^3/uL (0.0-0.2) Erythrocyte Sedimentation Rate 72 (0-25) Prothrombin Time 14.4 SEC (11.7-14.0) Prothromb Time International Ratio 1.2 (0.8-1.1) Maternal Serum HCG Beta Subunit < 1 mIU/mL (0-5) Sodium Level 134 mmol/L (136-145) Potassium Level 3.6 mmol/L (3.5-5.1) Chloride Level 102 mmol/L (98-107) Carbon Dioxide Level 24 mmol/L (21-32) Anion Gap 8 (6-14) Blood Urea Nitrogen 12 mg/dL (7-20) Creatinine 1.0 mg/dL (0.6-1.0) Estimated GFR (Cockcroft-Gault) 74.7 BUN/Creatinine Ratio 12 (6-20) Glucose Level 189 mg/dL (70-99) Calcium Level 9.2 mg/dL (8.5-10.1) Magnesium Level 1.5 mg/dL (1.8-2.4) Total Bilirubin 0.2 mg/dL (0.2-1.0) Aspartate Amino Transf (AST/SGOT) 32 U/L (15-37) Alanine Aminotransferase (ALT/SGPT) 24 U/L (14-59) Alkaline Phosphatase 100 U/L (46-116) Troponin I High Sensitivity < 4 ng/L (4-50) 6 ng/L (4-50) 7 ng/L (4-50) C-Reactive Protein, Quantitative 11.6 mg/L (0-3.3) YG-Odb-M-Type Natriuretic Peptide 38 pg/mL (0-124) Total Protein 8.4 g/dL (6.4-8.2) Albumin 2.6 g/dL (3.4-5.0) Albumin/Globulin Ratio 0.4 (1.0-1.7) Lipase 216 U/L (73-393) Urine Collection Type Unknown Urine Color (Auto) Red Urine Turbidity Bloody Urine pH (Auto) (<5.0-8.0) Urine Specific [place] (1.000-1.030) Urine Protein (Auto) mg/dL (Negative) Urine Glucose (Auto)(UA) mg/dL (Negative) Urine Ketones (Auto) mg/dL (Negative) Urine Blood (Auto) (Negative) Urine Nitrite (Negative) Urine Bilirubin (Auto) (Negative) Urine Urobilinogen (Auto) mg/dL (Normal) Urine Leukocyte Esterase (Auto) (Negative) Urine RBC Tntc /HPF (0-2) Urine WBC 5-10 /HPF (0-4) Urine Squamous Epithelial Cells Mod /LPF Urine Bacteria Moderate /HPF (0-FEW) Urine Mucus Slight /LPF Urine Test Negative (NEG) Urine Opiates Screen Neg (NEG) Urine Methadone Screen Neg (NEG) Urine Barbiturates Neg (NEG) Urine Phencyclidine Screen Neg (NEG) Urine Amphetamine/Methamphetamine Neg (NEG) Urine Benzodiazepines Screen Neg (NEG) Urine Cocaine Screen Neg (NEG) Urine Cannabinoids Screen Pos (NEG) Urine Ethyl Alcohol Neg (NEG) Laboratory Tests Test 08/09/21 16:52 08/09/21 17:00 08/09/21 19:31 08/10/21 01:00 White Blood Count 6.6 x10^3/uL (4.0-11.0) Red Blood Count 4.41 x10^6/uL (3.50-5.40) Hemoglobin 11.7 g/dL (12.0-15.5) Hematocrit 35.9 % (36.0-47.0) Mean Corpuscular Volume 81 fL (79-100) Mean Corpuscular Hemoglobin 27 pg (25-35) Mean Corpuscular Hemoglobin Concent 33 g/dL (31-37) Red Cell Distribution Width 15.8 % (11.5-14.5) Platelet Count 194 x10^3/uL (140-400) Neutrophils (%) (Auto) 57 % (31-73) Lymphocytes (%) (Auto) 28 % (24-48) Monocytes (%) (Auto) 7 % (0-9) Eosinophils (%) (Auto) 7 % (0-3) Basophils (%) (Auto) 1 % (0-3) Neutrophils # (Auto) 3.8 x10^3/uL (1.8-7.7) Lymphocytes # (Auto) 1.8 x10^3/uL (1.0-4.8) Monocytes # (Auto) 0.5 x10^3/uL (0.0-1.1) Eosinophils # (Auto) 0.5 x10^3/uL (0.0-0.7) Basophils # (Auto) 0.1 x10^3/uL (0.0-0.2) Erythrocyte Sedimentation Rate 72 (0-25) Prothrombin Time 14.4 SEC (11.7-14.0) Prothromb Time International Ratio 1.2 (0.8-1.1) Maternal Serum HCG Beta Subunit < 1 mIU/mL (0-5) Sodium Level 134 mmol/L (136-145) Potassium Level 3.6 mmol/L (3.5-5.1) Chloride Level 102 mmol/L (98-107) Carbon Dioxide Level 24 mmol/L (21-32) Anion Gap 8 (6-14) Blood Urea Nitrogen 12 mg/dL (7-20) Creatinine 1.0 mg/dL (0.6-1.0) Estimated GFR (Cockcroft-Gault) 74.7 BUN/Creatinine Ratio 12 (6-20) Glucose Level 189 mg/dL (70-99) Calcium Level 9.2 mg/dL (8.5-10.1) Magnesium Level 1.5 mg/dL (1.8-2.4) Total Bilirubin 0.2 mg/dL (0.2-1.0) Aspartate Amino Transf (AST/SGOT) 32 U/L (15-37) Alanine Aminotransferase (ALT/SGPT) 24 U/L (14-59) Alkaline Phosphatase 100 U/L (46-116) Troponin I High Sensitivity < 4 ng/L (4-50) 6 ng/L (4-50) 7 ng/L (4-50) C-Reactive Protein, Quantitative 11.6 mg/L (0-3.3) TO-Cku-K-Type Natriuretic Peptide 38 pg/mL (0-124) Total Protein 8.4 g/dL (6.4-8.2) Albumin 2.6 g/dL (3.4-5.0) Albumin/Globulin Ratio 0.4 (1.0-1.7) Lipase 216 U/L (73-393) Urine Collection Type Unknown Urine Color (Auto) Red Urine Turbidity Bloody Urine pH (Auto) (<5.0-8.0) Urine Specific [place] (1.000-1.030) Urine Protein (Auto) mg/dL (Negative) Urine Glucose (Auto)(UA) mg/dL (Negative) Urine Ketones (Auto) mg/dL (Negative) Urine Blood (Auto) (Negative) Urine Nitrite (Negative) Urine Bilirubin (Auto) (Negative) Urine Urobilinogen (Auto) mg/dL (Normal) Urine Leukocyte Esterase (Auto) (Negative) Urine RBC Tntc /HPF (0-2) Urine WBC 5-10 /HPF (0-4) Urine Squamous Epithelial Cells Mod /LPF Urine Bacteria Moderate /HPF (0-FEW) Urine Mucus Slight /LPF Urine Test Negative (NEG) Urine Opiates Screen Neg (NEG) Urine Methadone Screen Neg (NEG) Urine Barbiturates Neg (NEG) Urine Phencyclidine Screen Neg (NEG) Urine Amphetamine/Methamphetamine Neg (NEG) Urine Benzodiazepines Screen Neg (NEG) Urine Cocaine Screen Neg (NEG) Urine Cannabinoids Screen Pos (NEG) Urine Ethyl Alcohol Neg (NEG) Brief Hospital Course Ms. Bowie is a 40 old female, admit with acute on chroinc pain, chest pain CT angio clear trop neg x3 pain reproducible everywhere, trigger poitns of fibromyalgia, she was not happy that the treatment is moderate exercise, she was not on board with that. Discharge Information Condition at Discharge: Improved Follow Up: Weeks Disposition/Orders: D/C to Home Scheduled Famotidine (Famotidine) 20 Mg Tablet, 20 MG PO DAILY for GERD, #30 Prescribed by: ABNER SHERMAN on 08/10/21 0949 Lidocaine (Lidocaine PATCH ) 1 Each Adh..patch, 1 PATCH TD DAILY for costochondritis for 7 Days, #7 Prescribed by: ABNER SHERMAN on 08/10/21 0949 Scheduled PRN Tramadol Hcl (Tramadol Hcl) 50 Mg Tablet, 50 MG PO Q6HRS PRN for PAIN, #20 Prescribed by: ABNER SHERMAN on 08/10/21 0951 Discontinued Medications Ciprofloxacin Hcl (Cipro) 500 Mg Tablet, 1 TAB PO BID for 7 Days, #14 Ref 0 Prescribed by: BRYNN RANKIN D.O. on 04/11/20 1151 Hydrocodone/Ibuprofen (Hydrocodone-Ibuprofen 7.5-200) 1 Each Tablet, 1 TAB PO PRN Q6HRS PRN for PAIN, #10 Ref 0 Prescribed by: AAMIR WILLAMS APRN on 11/01/19 2103 Ibuprofen (Ibuprofen) 600 Mg Tablet, 600 MG PO PRN Q6HRS PRN for INFLAMMATION, #20 Prescribed by: RAGHU VALENTIN DO on 06/02/20 1044 Naproxen Sodium (Anaprox Ds) 550 Mg Tablet, 1 TAB PO BID PRN for PAIN for 15 Days, #30 Ref 0 Prescribed by: BRYNN RANKIN D.O. on 04/11/20 1151 Naproxen Sodium (Anaprox Ds) 550 Mg Tablet, 1 TAB PO BID PRN for PAIN for 15 Days, #30 Ref 0 Prescribed by: BRYNN RANKIN D.O. on 09/08/20 1034 Oxycodone Hcl (Oxycodone Hcl) 5 Mg Capsule, 5 MG PO PRN Q6HRS PRN for PAIN, #20 Ref 0 Prescribed by: BRYNN RANKIN D.O. on 04/11/20 1151 Sulfamethoxazole/Trimethoprim (Bactrim Ds Tablet) 1 Each Tablet, 1 TAB PO BID for 3 Days, #6 Ref 0 Prescribed by: Sharmin Crockett APRN on 03/12/20 2057 Tramadol Hcl (Tramadol Hcl) 50 Mg Tablet, 50 MG PO Q6HRS PRN for PAIN, #15 Prescribed by: BRYNN RANKIN D.O. on 10/04/19 1133 Patient Instructions Patient Instructions A/D same 35 minutes Justicifation of Admission Dx: Justifications for Admission: Justification of Admission Dx: N/A ABNER SHERMAN MD Aug 10, 2021 12:11
== END 2021-08-10 11:05 | disposition home or self-care (01) ==
LOC: ER 15:44 → 6 SOUTH 20:44
PROVIDERS: ADMIT Student in an Organized Health Care Education/Training Program; ATTEND Student in an Organized Health Care Education/Training Program
DX: R07.89 Other chest pain (principal); I10 Essential (primary) hypertension; E11.9 Type 2 diabetes mellitus without complications; K21.9 Gastro-esophageal reflux disease without esophagitis; K75.4 Autoimmune hepatitis; M79.7 Fibromyalgia; E56.9 Vitamin deficiency, unspecified; M94.0 Chondrocostal junction syndrome [Tietze]; E43 Unspecified severe protein-calorie malnutrition; E83.42 Hypomagnesemia; E66.01 Morbid (severe) obesity due to excess calories; F17.210 Nicotine dependence, cigarettes, uncomplicated; Z68.42 Body mass index [BMI] 45.0-49.9, adult; Z87.442 Personal history of urinary calculi; Z98.891 History of uterine scar from previous surgery; Z79.899 Other long term (current) drug therapy; Z98.890 Other specified postprocedural states
CPT/HCPCS: 36415; 71045; 71275; 80053; 80307; 81001; 81025; 83690; 83735; 83880; 84484; 84702; 85025; 85610; 85651; 86140; 87086; 93005; 94640; 96361; 96365; 96366; 96375; 96376; 99285; 99406; G0378; J1885; J2270; J2405; J3010; J3475; J3490; J7030; Q9967; G0379

== ENCOUNTER 2021-08-16 17:12 | Emergency (ER) | payer OTHER ==
[~2021-08-16] VITALS: Ht 167.6 cm; Wt 111.4 kg
[~2021-08-16 17:12] MED LIST changes: +FAMO20TA5 PO; +LIDO700A21 TD
--- NOTE | 2021-08-16 19:51 | RAD ---
AP chest. HISTORY: Chest pain AP view was taken of the chest. Lungs are clear. Heart is normal in size. There is no effusion. IMPRESSION: 1. No acute chest disease. Electronically signed by: Les Hidalgo MD (08/16/2021 7:48 PM) [facility]
--- NOTE | 2021-08-16 20:09 | PHYS DOC ---
Past Medical History Past Medical History: Diabetes-Type II, Hypertension, Kidney Stone, Other Additional Past Medical Histor: AUTOIMMUNE HEPATITIS Past Surgical History: , Other Additional Past Surgical Histo: KIDNEY STONE REMOVAL Smoking Status: Current Every Day Smoker Alcohol Use: None General Adult EDM: Chief Complaint: CHEST PAIN HPI: HPI: Patient is a 40 year old female who present to ER for evaluation of right-sided chest pain started earlier this morning. Patient described the pain as sharp aching in nature. Patient denies any cough or trouble breathing. Patient denies any nausea or sweating. The pain is worse with coughing or taking a deep breaths. Patient denies any recent travel operation patient was seen here on August 09, 2021 for same problem, patient was admitted to hospital, cardiac work- up came back negative, patient was seen by buyer assistant, diagnosed with costochondritis. Patient had a CTA her chest, did not show any acute problem. Patient had no personal history of blood clot disorder or heart problem. P demetra was also diagnosed with fibromyalgia. Review of Systems: Review of Systems: Constitutional: Denies fever or chills. [] Eyes: Denies change in visual acuity. [] HENT: Denies nasal congestion or sore throat. [] Respiratory: Denies cough or shortness of breath. [] Cardiovascular: Positive for chest pain, no edema GI: Denies abdominal pain, nausea, vomiting, bloody stools or diarrhea. [] : Denies dysuria. [] Musculoskeletal: Denies back pain or joint pain. [] Integument: Denies rash. [] Neurologic: Denies headache, focal weakness or sensory changes. [] Endocrine: Denies polyuria or polydipsia. [] Lymphatic: Denies swollen glands. [] Psychiatric: Denies depression or anxiety. [] Heart Score: C/O Chest Pain: Yes HEART Score for Chest Pain: HEART Score for Chest Pain Response (Comments) Value History Slighlty/Non-Suspicious 0 ECG Normal 0 Age < 45 0 Risk Factors 1 or 2 Risk Factors 1 Troponin < Normal Limit 0 Total 1 Risk Factors: Risk Factors: DM, Current or recent (<one month) smoker, HTN, HLP, family history of CAD, obesity. Risk Scores: Score 0 - 3: 2.5% MACE over next 6 weeks - Discharge Home Score 4 - 6: 20.3% MACE over next 6 weeks - Admit for Clinical Observation Score 7 - 10: 72.7% MACE over next 6 weeks - Early Invasive Strategies Allergies: Allergies: Allergies Coded Allergies Type Severity Reaction Last Updated Verified acetaminophen Allergy Intermediate 04/11/20 Yes doxycycline Allergy Intermediate SWELLING 04/11/20 Yes Physical Exam: PE: Constitutional: Well developed, well nourished, no acute distress, non-toxic appearance. Morbidly obese HENT: Normocephalic, atraumatic, bilateral external ears normal, oropharynx moist, no oral exudates, nose normal. [] Eyes: PERRLA, EOMI, conjunctiva normal, no discharge. [] Neck: Normal range of motion, no tenderness, supple, no stridor. [] Cardiovascular:Heart rate regular rhythm, no murmur. Chest pain is reproducible to palpation on the right lower chest wall area, no rash Lungs & Thorax: Bilateral breath sounds clear to auscultation [] Abdomen: Bowel sounds normal, soft, no tenderness, no masses, no pulsatile masses. [] Skin: Warm, dry, no erythema, no rash. [] Back: No tenderness, no CVA tenderness. [] Extremities: No tenderness, no cyanosis, no clubbing, ROM intact, no edema. [] Neurologic: Alert and oriented X 3, normal motor function, normal sensory function, no focal deficits noted. [] Psychologic: Affect normal, judgement normal, mood normal. [] Current Patient Data: Labs: Laboratory Tests Test 08/16/21 20:03 08/16/21 20:25 White Blood Count 6.0 x10^3/uL Red Blood Count 4.55 x10^6/uL Hemoglobin 12.2 g/dL Hematocrit 37.2 % Mean Corpuscular Volume 82 fL Mean Corpuscular Hemoglobin 27 pg Mean Corpuscular Hemoglobin Concent 33 g/dL Red Cell Distribution Width 15.6 % Platelet Count 227 x10^3/uL Neutrophils (%) (Auto) 44 % Lymphocytes (%) (Auto) 37 % Monocytes (%) (Auto) 9 % Eosinophils (%) (Auto) 10 % Basophils (%) (Auto) 1 % Neutrophils # (Auto) 2.6 x10^3/uL Lymphocytes # (Auto) 2.2 x10^3/uL Monocytes # (Auto) 0.5 x10^3/uL Eosinophils # (Auto) 0.6 x10^3/uL Basophils # (Auto) 0.1 x10^3/uL Sodium Level 136 mmol/L Potassium Level 4.0 mmol/L Chloride Level 101 mmol/L Carbon Dioxide Level 26 mmol/L Anion Gap 9 Blood Urea Nitrogen 14 mg/dL Creatinine 0.9 mg/dL Estimated GFR (Cockcroft-Gault) 84.3 BUN/Creatinine Ratio 16 Glucose Level 152 mg/dL Calcium Level 9.2 mg/dL Magnesium Level 1.4 mg/dL Total Bilirubin 0.2 mg/dL Aspartate Amino Transf (AST/SGOT) 29 U/L Alanine Aminotransferase (ALT/SGPT) 25 U/L Alkaline Phosphatase 96 U/L Troponin I High Sensitivity 6 ng/L XI-Don-B-Type Natriuretic Peptide 14 pg/mL Total Protein 7.9 g/dL Albumin 2.7 g/dL Albumin/Globulin Ratio 0.5 Lipase 236 U/L Current Medications Medications (Trade) Dose Ordered Sig/Perla Route PRN Reason Start Time Stop Time Status Last Admin Dose Admin Morphine Sulfate (Morphine Sulfate) 4 mg 1X ONCE IVP 08/16/21 20:15 08/16/21 20:16 DC 08/16/21 20:26 Magnesium Sulfate 50 ml @ 25 mls/hr 1X ONCE IV 08/16/21 21:30 08/16/21 23:29 08/16/21 21:30 Morphine Sulfate (Morphine Sulfate) 4 mg 1X ONCE IVP 08/16/21 22:30 08/16/21 22:31 DC EKG: EKG: EKG was done at 1723, heart rate 111 bpm, sinus tachycardia, no ST segment elevation Radiology/Procedures: Radiology/Procedures: [][facility] [address] [place] [address] IMAGING REPORT Signed PATIENT: ARTURO ARANGO ACCOUNT: [id number] : 1980 LOCATION: ER AGE: 40 SEX: F EXAM STATUS: REG ER ORD. PHYSICIAN: BRYNN RANKIN DO REASON: CHEST PAIN PROCEDURE: PORTABLE CHEST 1V AP chest. HISTORY: Chest pain AP view was taken of the chest. Lungs are clear. Heart is normal in size. There is no effusion. IMPRESSION: 1. No acute chest disease. Electronically signed by: Les Hidalgo MD (08/16/2021 7:48 PM) [facility] DICTATED and SIGNED BY: LES HIDALGO MD DATE: 08/16/211947 Course & Med Decision Making: Course & Med Decision Making Pertinent Labs and Imaging studies reviewed. (See chart for details) Patient is a 40-year-old female who present to ER for evaluation of right-sided lower chest pain, chest pain is noncardiac in nature, musculoskeletal in nature. Cardiac enzyme and EKG did not show any acute problem. No further work-up needed at this time. Patient will be discharged home. Dragon Disclaimer: [employer] Disclaimer: This electronic medical record was generated, in whole or in part, using a voice recognition dictation system. Departure Departure Impression: Primary Impression: Costochondritis Disposition: 01 HOME / SELF CARE / HOMELESS Condition: IMPROVED Referrals: BOBBY JIMENES JR, MD (PCP) Follow up with your doctor on Thursday. Patient Instructions: Chest Wall Pain BRYNN RANKIN DO Aug 16, 2021 20:09
[2021-08-16 20:11] LABS: BASO # 0.1 x10^3/uL (0.0-0.2); BASO % 1 % (0-3); EOS # 0.6 x10^3/uL (0.0-0.7); EOS % 10 % (0-3); HEMATOCRIT 37.2 % (36.0-47.0); HEMOGLOBIN 12.2 g/dL (12.0-15.5); LYMPH # 2.2 x10^3/uL (1.0-4.8); LYMPH % 37 % (24-48); MEAN CORPUSCULAR HEMOGLOBIN 27 pg (25-35); MEAN CORPUSCULAR HGB CONC 33 g/dL (31-37); MEAN CORPUSCULAR VOLUME 82 fL (79-100); MONO # 0.5 x10^3/uL (0.0-1.1); MONO % 9 % (0-9); NEUT # 2.6 x10^3/uL (1.8-7.7); NEUT % 44 % (31-73); PLATELET COUNT 227 x10^3/uL (140-400); RED BLOOD COUNT 4.55 x10^6/uL (3.50-5.40); RED CELL DISTRIBUTION WIDTH 15.6 % (11.5-14.5)
[2021-08-16] MEDS ORDERED: MORPHINE SULFATE 4 MG/ML INJ. IVP ONE ×2 (20:15→22:30)
[2021-08-16 20:44] LABS: CALCIUM 9.2 mg/dL (8.5-10.1); CREATININE 0.9 mg/dL (0.6-1.0); GFR 84.3
[2021-08-16 20:49] LABS: ALBUMIN 2.7 g/dL (3.4-5.0); ALBUMIN/GLOBULIN RATIO 0.5 (1.0-1.7); MAGNESIUM 1.4 mg/dL (1.8-2.4); TOTAL BILIRUBIN 0.2 mg/dL (0.2-1.0); TOTAL PROTEIN 7.9 g/dL (6.4-8.2)
[2021-08-16] MEDS ORDERED: MAGNESIUM SULFATE 2GM 50 ML IV ONE (21:30)
[2021-08-16 21:42] VITALS: BP 169/67
--- NOTE | 2021-08-17 07:02 | EKG ---
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
--- NOTE | 2021-08-17 07:02 | EKG ---
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
== END 2021-08-16 23:23 | disposition home or self-care (01) ==
LOC: ER 17:12
DX: M94.0 Chondrocostal junction syndrome [Tietze] (principal); E11.9 Type 2 diabetes mellitus without complications; I10 Essential (primary) hypertension; F17.200 Nicotine dependence, unspecified, uncomplicated; Z87.442 Personal history of urinary calculi; Z88.1 Allergy status to other antibiotic agents; Z88.8 Allergy status to other drugs, medicaments and biological substances
CPT/HCPCS: 36415; 71045; 80053; 83690; 83735; 83880; 84484; 85025; 93005; 96365; 96375; 96376; 99285; J2270; J3475